=== PATIENT | female | born 1950 | race American Indian/Alaskan Native ===

== ENCOUNTER 2018-04-26 17:29 | Inpatient (IN) | payer MEDICARE, OTHER ==
[2018-04-26 17:44] VITALS: BMI 37.8
[2018-04-26] MEDS ORDERED: TDAP Vaccine 0.5 mL Syr IM ONE (18:06)
--- NOTE | 2018-04-26 18:14 | ED PDOC ---
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 Patient states that she wears a brace in the right leg in order to walk. However she states that recently she has been having difficulty using the brace to walk. She reports fever, chills. Otherwise: (-) trauma, (-) chest pain, (-) dyspnea, (-) hemoptysis, (-) prior thromboembolic disease, (-) prolonged immobility or travel, (-) CHF, (-) known malignancy. PMD David Cardio not on staff [facility] [place] Past Medical History - Infectious Disease Hx of Infectious Diseases: None - Cardiac Hx Cardiac Disorders: Yes Hx Hypertension: Yes - Pulmonary Hx Respiratory Disorders: No - Neurological Hx Neurological Disorder: Yes HX Cerebrovascular Accident: Yes (x3, right sided weakness) - HEENT Hx HEENT Disorder: No - Renal Hx Renal Disorder: No - Endocrine/Metabolic Hx Endocrine Disorders: Yes Hx Diabetes Mellitus Type 2: Yes (+ insulin) - Hematological/Oncological Hx Blood Disorders: No - Integumentary Hx Dermatological Disorder: No - Musculoskeletal/Rheumatological Hx Musculoskeletal Disorders: No - Gastrointestinal Hx Gastrointestinal Disorders: No - Genitourinary/Gynecological Hx Genitourinary Disorders: No - Psychiatric Hx Psychophysiologic Disorder: No Hx Substance Use: No - Surgical History Hx Tubal Ligation: Yes - Anesthesia Hx Anesthesia Reactions: No Hx Malignant Hyperthermia: No Family/Social History Family/Social History: No Known Family HX Smoking Status: Former Smoker Hx Alcohol Use: No Hx Substance Use: No Allergies/Home Meds Allergies/Adverse Reactions: Allergies No Known Allergies Allergy (Verified 04/26/18 17:46) Home Medications: Home Meds Medication Instructions Recorded Confirmed Aspirin/Dipyridamole [Aggrenox 1 cap PO DAILY 04/26/18 04/26/18 25-200 mg] Calcitriol [Rocaltrol] 1 cap PO DAILY 04/26/18 04/26/18 Furosemide [Lasix] 1 tab PO DAILY 04/26/18 04/26/18 Glipizide [Glipizide ER] 1 tab PO BID 04/26/18 04/26/18 MetFORMIN [glucoPHAGE] 1 tab PO BID 04/26/18 04/26/18 Olmesartan Medoxomil [Benicar] 1 tab PO DAILY 04/26/18 04/26/18 Rosuvastatin Calcium [Crestor] 1 tab PO HS 04/26/18 04/26/18 amLODIPine [Norvasc] 1 tab PO DAILY 04/26/18 04/26/18 Review of Systems - Review of Systems Constitutional: absent: Fatigue, Fevers Respiratory: absent: SOB, Cough, Sputum Cardiovascular: absent: Chest Pain, Palpitations Gastrointestinal: absent: Abdominal Pain, Nausea, Vomiting Genitourinary Female: absent: Dysuria, Frequency, Hematuria Musculoskeletal: Other (+ R lower leg pain). absent: Arthralgias, Back Pain, Neck Pain Skin: absent: Rash, Pruritis, Skin Lesions Physical Exam - Systems Exam Head: Present: Atraumatic, Normocephalic Pupils: Present: PERRL Extroacular Muscles: Present: EOMI Conjunctiva: Present: Normal Mouth: Present: Moist Mucous Membranes Neck: Present: Normal Range of Motion Respiratory/Chest: Present: Clear to Auscultation, Good Air Exchange. No: Respiratory Distress, Accessory Muscle Use Cardiovascular: Present: Regular Rate and Rhythm, Normal S1, S2. No: Murmurs Abdomen: No: Tenderness, Distention, Peritoneal Signs Back: Present: Normal Inspection Upper Extremity: Present: Normal Inspection, Other (+R sided weakness, R arm is held in flexion). No: Cyanosis, Edema Lower Extremity: Present: Normal Inspection, NORMAL PULSES, Swelling (+edema, warm to touch to the R lower leg, +2x2 cm circular shallow ulcer to the R lower calf, +1x1 cm circular shallow ulcer to the R calf without erythema, d/c. ), Neurovascularly Intact, Capillary Refill < 2 s. No: Edema, Temperature Abnormalties Neurological: Present: GCS=15, CN II-XII Intact, Speech Normal Skin: Present: Warm, Dry, Normal Color. No: Rashes Psychiatric: Present: Alert, Oriented x 3, Normal Insight, Normal Concentration Medical Decision Making ED Course and Treatment: 04/26/18 18:14 Plan: -- Labs -- IV -- Tylenol PO -- Tdap IM -- EKG -- CXR -- Morphine / Zofran / Toradol -- Reassess and disposition -- US doppler RLE 04/26/18 19:44 EKG: ST at 103 bpm, (-) acute ST changes, as read by PA. CXR : NAD US doppler RLE : No DVT. 04/26/18 20:00 Labs reviewed : wbc 14.2 w/ L shift, bun 26, creat 1.5 (stable from last labs). On reevaluation, patient remains awake alert and oriented 3 in no acute distress, reports no dyspnea or CP. Results d/w the patient, diagnosis of cellulitis likely due to 2 skin ulcers to the posterior R calf d/w the patient. Vancomycin 1 g IV ordered. Patient advised that she will need to be observed overnight in the hospital, which she agrees with. Case d/w medical staffing coordinator and Dr. Garcia, who agree with plan for observation under the hospitalist service. - RAD Interpretation Radiology Orders: 04/26/18 18:01 DUPLEX LOWER EXTRM VEIN RIGHT [US] Stat 04/26/18 18:02 CHEST PORTABLE [RAD] Stat - Medication Orders Current Medication Orders: Discontinued Medications Acetaminophen (Tylenol 325mg Tab) 975 mg PO STAT STA Stop: 04/26/18 18:07 Tetanus/Reduced Diphtheria/Acell Pertussis (Boostrix Vaccine Inj) 0.5 ml IM .ONCE ONE Stop: 04/26/18 18:07 - PA / SCIENTIST PROPAGATOR / Resident Statement MD/ has reviewed & agrees with the documentation as recorded. Disposition/Present on Arrival - Present on Arrival Any Indicators Present on Arrival: No History of DVT/PE: No History of Uncontrolled Diabetes: No Urinary Catheter: No History of Decub. Ulcer: No History Surgical Site Infection Following: None - Disposition Have Diagnosis and Disposition been Completed?: Yes Diagnosis: Leg edema, right, Cellulitis, Ulcer of right leg Disposition: HOSPITALIZED Disposition Time: 20:00 Patient Plan: Observation Patient Problems: Current Active Problems Problem Status Onset Cellulitis Acute Leg edema, right Acute Ulcer of right leg Acute Condition: STABLE Discharge Instructions (ExitCare): Cellulitis (ED) Referrals: Hu Hernandez MD [Primary Care Provider] - Follow up with primary Forms: [facility] (Malay)
[2018-04-26 19:40] LABS: ALB/GLOB RATIO 1.1 (1.1-1.8); ALBUMIN 4.2 g/dL (3.0-4.8); ALT/SGPT < 6 U/L (7-56); AST/SGOT 20 U/L (14-36); BLOOD UREA NITROGEN 26 mg/dL (7-21); GFR NON-AFRICAN AMERICAN 35
[2018-04-26 19:41] LABS: BASO # 0.02 K/mm3 (0.0-2.0); BASO % 0.1 % (0.0-3.0); EOS % 0.2 % (1.5-5.0); HEMOGLOBIN 11.3 g/dL (12.0-16.0); LYMPH # 2.6 (1.2-3.4); LYMPH % 18.4 % (22.0-35.0); MEAN CELL VOLUME 84.1 fl (80.0-105.0); MEAN CORPUSCULAR HEMOGLOBIN 27.2 pg (25.0-35.0); MEAN CORPUSCULAR HGB CONC 32.4 g/dl (31.0-37.0); MEAN PLATELET VOLUME 10.6 fl (7.0-11.0); MONO # 0.7 (0.1-0.6); MONO % 5.1 % (1.0-6.0); RBC 4.15 10^6/uL (3.5-6.1); RED CELL DISTRIBUTION WIDTH 13.9 % (11.5-14.5); WHITE BLOOD COUNT 14.2 10^3/uL (4.5-11.0)
[2018-04-26 19:43] LABS: PARTIAL THROMBOPLASTIN TIME 24.4 Seconds (26.9-38.3); PROTHROMBIN TIME 11.1 SECONDS (9.4-12.5)
[2018-04-26 19:51] LABS: B-TYPE NATRIURETIC PEPTIDE 389 pg/mL (0-450)
[2018-04-26] MEDS ORDERED: Vancomycin 1gm in NS 250ml 1 GM/250 ML BAG IVPB STA (19:58)
--- NOTE | 2018-04-26 21:12 | CP.PCM.HP ---
History of Present Illness - History of Present Illness History of Present Illness: Resident History & Physical for Hospitalist Service Patient is a 68 year old female with past medical history of HTN, T2DM, CKD, CVA, TIA presenting with chief complaint of lower extremity swelling beginning a few weeks prior. Patient states that in the past few days she had increased severity of swelling in her right lower extremity which prompted her arrival to ED. She admits to pain only when she is ramin her leg. Patient uses a brace for her RLE due to residual weakness from previous CVA, however she has had difficulty ambulating even with the brace. Typically she is able to ambulate up and down stairs without any issue. She denies any trauma or recent travel. Denies fevers, chills, headache, dizziness, nausea, vomiting, chest pain, shortness of breath, abdominal pain, dysuria. PMH: HTN, T2DM, CKD, CVA (1997), TIA (2000, 2002) PSH: tubal ligation, cholecystectomy SHx: denies alcohol or illicit drug use, 1.5 PPD for 20 years (quit in 2010) FHx: mother (HTN), father (T2DM0 Allergies: NKDA PMD: Dr. Rizvi Present on Admission - Present on Admission Any Indicators Present on Admission: No Review of Systems - Review of Systems All systems: reviewed and no additional remarkable complaints except (as stated in HPI) Past Patient History - Infectious Disease Hx of Infectious Diseases: None - Past Social History Smoking Status: Former Smoker - CARDIAC Hx Cardiac Disorders: Yes Hx Hypertension: Yes - PULMONARY Hx Respiratory Disorders: No - NEUROLOGICAL Hx Neurological Disorder: Yes HX Cerebrovascular Accident: Yes (x3, right sided weakness) - HEENT Hx HEENT Problems: No - RENAL Hx Chronic Kidney Disease: No - ENDOCRINE/METABOLIC Hx Endocrine Disorders: Yes Hx Diabetes Mellitus Type 2: Yes (+ insulin) - HEMATOLOGICAL/ONCOLOGICAL Hx Blood Disorders: No - INTEGUMENTARY Hx Dermatological Problems: No - MUSCULOSKELETAL/RHEUMATOLOGICAL Hx Musculoskeletal Disorders: No - GASTROINTESTINAL Hx Gastrointestinal Disorders: No - GENITOURINARY/GYNECOLOGICAL Hx Genitourinary Disorders: No - PSYCHIATRIC Hx Psychophysiologic Disorder: No Hx Substance Use: No - SURGICAL HISTORY Hx Tubal Ligation: Yes - ANESTHESIA Hx Anesthesia Reactions: No Hx Malignant Hyperthermia: No Meds Allergies/Adverse Reactions: Allergies Allergy/AdvReac Type Severity Reaction Status Date / Time No Known Allergies Allergy Verified 02/14/19 17:46 Physical Exam - Constitutional Appears: Non-toxic, No Acute Distress - Head Exam Head Exam: ATRAUMATIC, NORMOCEPHALIC - Eye Exam Eye Exam: EOMI, Normal appearance, PERRL - ENT Exam ENT Exam: Mucous Membranes Moist - Neck Exam Neck exam: Positive for: Full Rom, Normal Inspection - Respiratory Exam Respiratory Exam: Clear to Auscultation Bilateral, NORMAL BREATHING PATTERN. absent: Rales, Rhonchi, Wheezes, Respiratory Distress - Cardiovascular Exam Cardiovascular Exam: REGULAR RHYTHM, +S1, +S2. absent: Tachycardia, Systolic Murmur - GI/Abdominal Exam GI & Abdominal Exam: Soft. absent: Distended, Firm, Guarding, Rebound, Rigid, Tenderness - Extremities Exam Extremities exam: Positive for: normal capillary refill, pedal edema Additional comments: bilateral lower extremity swelling and pitting edema R>L RLE warm, non erythematous, non tender to palpation two healed wounds on right calf - Neurological Exam Neurological exam: Alert, CN II-XII Intact, Oriented x3 Additional comments: RUE and RLE muscle strength +4/5 - Psychiatric Exam Psychiatric exam: Normal Affect, Normal Mood - Skin Skin Exam: Dry, Intact, Warm Results - Vital Signs Recent Vital Signs: Last Vital Signs Temp 98.6 F 04/26/18 18:37 Pulse 98 H 04/26/18 20:00 Resp 18 04/26/18 20:00 BP 158/69 H 04/26/18 20:00 Pulse Ox 96 04/26/18 20:00 - Labs Result Diagrams: 04/26/18 19:14 04/26/18 19:14 Labs: Laboratory Results - last 24 hr 04/26/18 04/26/18 04/26/18 19:14 19:14 19:14 WBC 14.2 H RBC 4.15 Hgb 11.3 L Hct 34.9 L MCV 84.1 MCH 27.2 MCHC 32.4 RDW 13.9 Plt Count 278 MPV 10.6 Neut % (Auto) 76.2 H Lymph % (Auto) 18.4 L [place] % (Auto) 5.1 Eos % (Auto) 0.2 L Baso % (Auto) 0.1 Lymph # (Auto) 2.6 [place] # (Auto) 0.7 H Eos # (Auto) 0.0 Baso # (Auto) 0.02 Absolute Neuts (auto) 10.82 H PT 11.1 INR 1.00 APTT 24.4 L Sodium 137 Potassium 4.6 Chloride 107 Carbon Dioxide 22 Anion Gap 13 BUN 26 H Creatinine 1.5 H Est GFR ( Amer) 42 Est GFR (Non-Af Amer) 35 Random Glucose 147 H Calcium 10.0 Magnesium 1.5 L Total Bilirubin 0.4 AST 20 ALT < 6 L Alkaline Phosphatase 82 NT-Pro-B Natriuret Pep 389 Total Protein 8.2 Albumin 4.2 Globulin 4.0 Albumin/Globulin Ratio 1.1 Assessment & Plan - Assessment and Plan (Free Text) Assessment: Patient is a 68 year old female with past medical history of HTN, T2DM, CKD, CVA presenting with chief complaint of right lower extremity swelling. Plan: RLE swelling - afebrile, positive leukocytosis - x-rays to rule out OM - EMELI, dopplers - followup blood cultures - ID and podiatry consulted. Appreciate recs. - Vancomycin 1 gm IV Q12H - Zosyn 2.25 gm IV Q6H T2DM - Hgba1c - continue home metformin and glipizide HTN - continue home Norvasc, Lasix, Losartan History of CVA - continue home aspirin, Lipitor, Aggrenox PPX - Heparin 5000 units SC Q12 Case discussed with Dr. Jose Zhang PGY-1 - Date & Time Date: 04/26/18 Time: 21:57
[2018-04-27] MEDS: Piperacillin/Tazobact 2.25gm 2.25 GM/100 ML BAG IVPB SCH ×2 (04:24→09:47)
--- NOTE | 2018-04-27 07:20 | CARD ---
APPROVED REPORT Date of service: 04/26/2018 EKG Measurement Heart [id number] <Conclusion> Sinus tachycardia Low voltage QRS Borderline ECG
--- NOTE | 2018-04-27 07:35 | CP.PCM.PN ---
<Joellen Caldwell - Last Filed: 04/27/18 13:52> Subjective - Date & Time of Evaluation Date of Evaluation: 04/27/18 Time of Evaluation: 07:35 - Subjective Subjective: PGY1 Progress Note for Dr. Anthony Patient seen and evaluated at bedside. Patient had no acute overnight events. No new complaints today. ROS unremarkable for headache, fever, chest pain, shortness of breath, increase in weakness, nausea, vomiting, constipation, d iarrhea, dysuria, hematuria. Objective - Vital Signs/Intake and Output Vital Signs (last 24 hours): Temp Pulse Resp BP Pulse Ox 98.6 F 98 H 18 158/69 H 96 04/26/18 18:37 04/26/18 20:00 04/26/18 23:14 04/26/18 20:00 04/26/18 20:00 Intake and Output: 04/27/18 04/27/18 06:59 18:59 Intake Total 120 Balance 120 - Medications Medications: Current Medications Acetaminophen (Tylenol 325mg Tab) 650 mg PO Q6H PRN PRN Reason: Fever >100.4 F Last Admin: 04/27/18 04:25 Dose: 650 mg Acetaminophen (Tylenol 325mg Tab) 650 mg PO Q4H PRN PRN Reason: Pain, moderate (4-7) Amlodipine Besylate (Norvasc) 10 mg PO DAILY [facility] Atorvastatin Calcium (Lipitor) 20 mg PO DIN [facility] Calcitriol (Rocaltrol) 0.5 mcg PO DAILY [facility] Dipyridamole/Aspirin (Aggrenox 25-200 Mg) 1 ea PO DAILY [facility] Furosemide (Lasix) 20 mg PO DAILY [facility] Glipizide (Glucotrol Xl) 10 mg PO BID [facility] Heparin Sodium (Porcine) (Heparin) 5,000 units SC Q12 [facility]; Protocol Vancomycin HCl (Vancomycin 1gm) 1 gm in 250 mls @ 167 mls/hr IVPB Q12H [facility]; Protocol Piperacillin Sod/Tazobactam Sod (Zosyn 2.25 Gm In 0.9% 100 Ml) 2.25 gm in 100 mls @ 100 mls/hr IVPB Q6H [facility]; Protocol Stop: 04/27/18 09:16 Last Admin: 04/27/18 04:24 Dose: 100 mls/hr Losartan Potassium (Cozaar) 100 mg PO DAILY [facility] Metformin HCl (Glucophage) 1,000 mg PO BID [facility] - Labs Labs: 04/26/18 19:14 04/26/18 19:14 PT 11.1 SECONDS (9.4-12.5) 04/26/18 19:14 INR 1.00 04/26/18 19:14 APTT 24.4 Seconds (26.9-38.3) L 04/26/18 19:14 - Additional Findings Additional findings: - Constitutional Appears: Non-toxic, No Acute Distress - Head Exam Head Exam: ATRAUMATIC, NORMOCEPHALIC - Eye Exam Eye Exam: EOMI, Normal appearance, PERRL - Respiratory Exam Respiratory Exam: Clear to Auscultation Bilateral, NORMAL BREATHING PATTERN. absent: Rales, Rhonchi, Wheezes, Respiratory Distress - Cardiovascular Exam Cardiovascular Exam: REGULAR RHYTHM, +S1, +S2. absent: Tachycardia, Systolic Murmur - GI/Abdominal Exam GI & Abdominal Exam: Soft. absent: Distended, Firm, Guarding, Rebound, Rigid, Tenderness - Extremities Exam Extremities exam: Positive for: normal capillary refill, pedal edema Additional comments: bilateral lower extremity swelling and pitting edema R>L RLE warm, non erythematous, non tender to palpation two healed wounds on right calf - Neurological Exam Neurological exam: Alert, CN II-XII Intact, Oriented x3 Additional comments: RUE and RLE muscle strength +4/5 - Skin Skin Exam: Dry, Intact, Warm Assessment and Plan - Assessment and Plan (Free Text) Assessment: Patient is a 68 year old female with past medical history of HTN, T2DM, CKD, CVA presenting with chief complaint of right lower extremity ulcer and edema, rule- out osteomyelitis Plan: Right Lower Extremity Ulcer - Afebrile, positive leukocytosis on admission - ID (Dr. Peña) consulted; recommendations appreciated - Vancomycin 1 gm IV Q12H - Zosyn 2.25 gm IV Q6H - Venous Doppler R LE 04/27: 1. Limited study due to calcified vessels. 2. Significant right distal SFA, popliteal, and/or tibial disease. 3. Further e valuation with an MRA with gadolinium runnoff, CTA runoff, or conventional arteriogram is recommended if clinically indicated. - R Ankle X-ray 04/27: mild focal periosteal thickening noted at the lateral aspect of the distal right fibula without definite evidence or cortical erosion. Adjacent soft tissue swelling and heterogenous density likely represent soft tissue inflammatory or infectious process. - R Tibia/Fibula X-ray 04/27: no definite radiographic evidence of osteomyelitis - R Foot X-ray 04/27: no definite radiographic evidence of osteomyelitis - Podiatry Consulted (Dr. Velazquez); recommendations appreciated; - EMELI ordered to evaluate for PVD - Vascular Surgery (Dr. Mulligan) consulted; recommendations appreciated - Wound cultures obtained - Wound cleansed with saline and dressed with xeroform, DSD R Lower Extremity Edema; Rule-out DVT - Venous Doppler R LE 04/26: No DVT appreciated CKD Stage 3B Moderate - GFR =42 - Monitor daily CMP - Cr stable at 1.5 (baseline) T2DM Complicated by CKD - Hgba1c - continue home metformin and glipizide HTN - continue home Norvasc, Lasix, Losartan History of CVA - continue home aspirin, Lipitor, Aggrenox PPX - Heparin 5000 units SC Q12 Patient seen and case discussed in detail with Dr. Gabrielle Caldwell PGY1 <Bud Anthony - Last Filed: 04/27/18 18:10> Objective - Vital Signs/Intake and Output Vital Signs (last 24 hours): Temp Pulse Resp BP Pulse Ox 99.4 F 91 H 18 136/62 96 04/27/18 14:00 04/27/18 14:00 04/27/18 14:00 04/27/18 14:00 04/27/18 14:00 Intake and Output: 04/27/18 04/27/18 06:59 18:59 Intake Total 120 Balance 120 - Medications Medications: Current Medications Acetaminophen (Tylenol 325mg Tab) 650 mg PO Q6H PRN PRN Reason: Fever >100.4 F Last Admin: 04/27/18 04:25 Dose: 650 mg Acetaminophen (Tylenol 325mg Tab) 650 mg PO Q4H PRN PRN Reason: Pain, moderate (4-7) Amlodipine Besylate (Norvasc) 10 mg PO DAILY [facility] Last Admin: 04/27/18 09:32 Dose: 10 mg Atorvastatin Calcium (Lipitor) 20 mg PO DIN [facility] Last Admin: 04/27/18 17:03 Dose: 20 mg Calcitriol (Rocaltrol) 0.5 mcg PO DAILY [facility] Last Admin: 04/27/18 09:37 Dose: 0.5 mcg Dipyridamole/Aspirin (Aggrenox 25-200 Mg) 1 ea PO DAILY [facility] Last Admin: 04/27/18 09:32 Dose: 1 ea Furosemide (Lasix) 20 mg PO DAILY [facility] Last Admin: 04/27/18 09:33 Dose: 20 mg Glipizide (Glucotrol Xl) 10 mg PO BID [facility] Last Admin: 04/27/18 17:03 Dose: 10 mg Heparin Sodium (Porcine) (Heparin) 5,000 units SC Q12 [facility]; Protocol Last Admin: 04/27/18 09:33 Dose: 5,000 units Vancomycin HCl (Vancomycin 1gm) 1 gm in 250 mls @ 167 mls/hr IVPB Q12H [facility]; Protocol Last Admin: 04/27/18 09:32 Dose: 167 mls/hr Sodium Chloride (Sodium Chloride 0.45%) 1,000 mls @ 75 mls/hr IV .[id number] [facility] Losartan Potassium (Cozaar) 100 mg PO DAILY [facility] Last Admin: 04/27/18 09:32 Dose: 100 mg Metformin HCl (Glucophage) 1,000 mg PO BID [facility] Last Admin: 04/27/18 17:03 Dose: 1,000 mg - Labs Labs: 04/27/18 07:40 04/27/18 07:40 PT 11.1 SECONDS (9.4-12.5) 04/26/18 19:14 INR 1.00 04/26/18 19:14 APTT 24.4 Seconds (26.9-38.3) L 04/26/18 19:14 Attending/Attestation - Attestation I have personally seen and examined this patient.: Yes I have fully participated in the care of the patient.: Yes I have reviewed all pertinent clinical information, including history, physical exam and plan: Yes Notes (Text): 04/27/18 18:02 68 year old female with past medical history of hypertension, diabetes, CKD and CVA presents with RLE ulcer and edema. She is on iv antibiotics. Will follow up on cultures. ID/podiatry evaluations were requested. Xray reviewed showing mild focal periosteal thickening at the lateral aspect of the distal right fibula with adjacent soft tissue swelling. Dopplers showed significant right distal SFA, popliteal and/or tibial disease. IR evaluation was requested. Bud Anthony MD Hospitalist.
[2018-04-27 07:51] LABS: BASO # 0.02 K/mm3 (0.0-2.0); BASO % 0.2 % (0.0-3.0); EOS # 0.1 (0.0-0.7); EOS % 0.8 % (1.5-5.0); HEMOGLOBIN 10.2 g/dL (12.0-16.0); LYMPH # 3.3 (1.2-3.4); LYMPH % 30.7 % (22.0-35.0); MEAN CELL VOLUME 83.7 fl (80.0-105.0); MEAN CORPUSCULAR HEMOGLOBIN 27.3 pg (25.0-35.0); MEAN CORPUSCULAR HGB CONC 32.6 g/dl (31.0-37.0); MEAN PLATELET VOLUME 10.2 fl (7.0-11.0); MONO # 0.8 (0.1-0.6); MONO % 7.7 % (1.0-6.0); RBC 3.74 10^6/uL (3.5-6.1); RED CELL DISTRIBUTION WIDTH 13.9 % (11.5-14.5); WHITE BLOOD COUNT 10.6 10^3/uL (4.5-11.0)
[2018-04-27 08:20] LABS: ALBUMIN 3.6 g/dL (3.0-4.8); AST/SGOT 21 U/L (14-36); BLOOD UREA NITROGEN 24 mg/dL (7-21); CALCIUM 9.7 mg/dL (8.4-10.5); GFR NON-AFRICAN AMERICAN 35
[2018-04-27 08:23] LABS: ALT/SGPT < 6 U/L (7-56)
[2018-04-27] MEDS: Vancomycin 1gm in NS 250ml 1 GM/250 ML BAG IVPB SCH ×2 (09:32→21:31)
[2018-04-27] MEDS: Aspirin-Dipyridamole 200-25 mg ER Cap PO SCH (09:32)
[2018-04-27] MEDS: GlipiZIDE 10 mg SR Tab PO SCH ×2 (09:33→17:03)
--- NOTE | 2018-04-27 10:05 | RAD ---
Date of service: 04/26/2018 HISTORY: RLE edema COMPARISON: No prior. FINDINGS: LUNGS: No active pulmonary disease. PLEURA: No significant pleural effusion identified, no pneumothorax apparent. CARDIOVASCULAR: No aortic atherosclerotic calcification present. Normal cardiac size. No pulmonary vascular congestion. OSSEOUS STRUCTURES: No significant abnormalities. VISUALIZED UPPER ABDOMEN: Normal. OTHER FINDINGS: None. IMPRESSION: No radiographic evidence of acute pulmonary disease. Suboptimal portable study.
--- NOTE | 2018-04-27 10:13 | US ---
PROCEDURE: Right lower extremity venous US HISTORY: Leg pain and swelling. Evaluate for DVT. PHYSICIAN(S): Vlad Mulligan M.D. TECHNIQUE: Duplex sonography and color-flow Doppler with graded compression were used to evaluate the deep venous system of the right lower extremity. The exam is somewhat limited by body habitus and edema FINDINGS: The visualized deep venous system of the right lower extremity is sonographically normal and compressible. Normal waveforms and augmentation are seen. There is no sonographic evidence for deep venous thrombosis in the visualized segments of the right lower extremity. IMPRESSION: 1. No sonographic evidence for deep venous thrombosis in the visualized segments of the right lower extremity.
--- NOTE | 2018-04-27 11:13 | RAD ---
Date of service: 04/27/2018 PROCEDURE: Right Ankle Radiographs. HISTORY: r/o OM COMPARISON: None available. FINDINGS: BONES: There is focal mild periosteal thickening noted at lateral aspect of the distal fibula without evidence of cortical destruction. JOINTS: Arthritic degenerative changes are noted. SOFT TISSUES: Heterogeneous density of the soft tissue at and adjacent to the lateral malleolus may represent soft tissue infection. OTHER FINDINGS: None. IMPRESSION: Mild focal periosteal thickening noted at the lateral aspect of the distal right fibula without definite evidence of cortical erosion. Adjacent soft tissue swelling and heterogeneous density likely represent soft tissue inflammatory or infectious process.
--- NOTE | 2018-04-27 11:15 | RAD ---
Date of service: 04/27/2018 PROCEDURE: Radiographs of the right tibia and fibula. HISTORY: r/o OM COMPARISON: None available TECHNIQUE: Frontal and lateral views obtained. FINDINGS: BONES: No radiographic evidence of significant periosteal thickening or cortical erosion in right tibia and fibula. JOINT SPACES: Unremarkable. OTHER FINDINGS: Diffuse vascular calcification is noted. IMPRESSION: No definite radiographic evidence of osteomyelitis.
--- NOTE | 2018-04-27 11:17 | RAD ---
Date of service: 04/27/2018 PROCEDURE: Right Foot Radiographs. HISTORY: r/o OM COMPARISON: None. FINDINGS: BONES: No definite evidence of focal cortical destruction or significant periosteal thickening noted. JOINTS: Normal. SOFT TISSUES: Vascular calcification is noted. OTHER FINDINGS: None. IMPRESSION: No definite radiographic evidence of osteomyelitis.
--- NOTE | 2018-04-27 12:14 | CP.PCM.CON ---
<Zay Cortez - Last Filed: 04/27/18 12:11> History of Present Illness - History of Present Illness History of Present Illness: Podiatry consult note for Dr. Velazquez, \68 year old female with PMHx of HTN, T2DM, CKD, CVA, TIA seen and evaluated at bedside with Dr. Velazquez for lower extremity swelling beginning and right leg wounds, which patient states developed over the last few weeks. She admits to pain on pressure and with range of motion. Patient uses a brace for her RLE due to residual weakness from previous CVA, and states the wound could be a result of the brace. Typically she is able to ambulate up and down stairs without any issue. She denies any trauma or recent travel. Denies fevers, chills, headache, dizziness, nausea, vomiting, chest pain, shortness of breath, abdominal pain, dysuria. Review of Systems - Review of Systems All systems: reviewed and no additional remarkable complaints except Review of Systems: As per HPI Past Patient History - Infectious Disease Hx of Infectious Diseases: None - Past Social History Smoking Status: Former Smoker - CARDIAC Hx Cardiac Disorders: Yes Hx Hypertension: Yes - PULMONARY Hx Respiratory Disorders: No - NEUROLOGICAL Hx Neurological Disorder: Yes HX Cerebrovascular Accident: Yes (x3, right sided weakness) - HEENT Hx HEENT Problems: No - RENAL Hx Chronic Kidney Disease: No - ENDOCRINE/METABOLIC Hx Endocrine Disorders: Yes Hx Diabetes Mellitus Type 2: Yes (+ insulin) - HEMATOLOGICAL/ONCOLOGICAL Hx Blood Disorders: No - INTEGUMENTARY Hx Dermatological Problems: No - MUSCULOSKELETAL/RHEUMATOLOGICAL Hx Musculoskeletal Disorders: No - GASTROINTESTINAL Hx Gastrointestinal Disorders: No - GENITOURINARY/GYNECOLOGICAL Hx Genitourinary Disorders: No - PSYCHIATRIC Hx Psychophysiologic Disorder: No Hx Substance Use: No - SURGICAL HISTORY Hx Tubal Ligation: Yes - ANESTHESIA Hx Anesthesia Reactions: No Hx Malignant Hyperthermia: No Meds Allergies/Adverse Reactions: Allergies Allergy/AdvReac Type Severity Reaction Status Date / Time No Known Allergies Allergy Verified 04/26/18 17:46 - Medications Medications: Current Medications Acetaminophen (Tylenol 325mg Tab) 650 mg PO Q6H PRN PRN Reason: Fever >100.4 F Last Admin: 04/27/18 04:25 Dose: 650 mg Acetaminophen (Tylenol 325mg Tab) 650 mg PO Q4H PRN PRN Reason: Pain, moderate (4-7) Amlodipine Besylate (Norvasc) 10 mg PO DAILY [facility] Last Admin: 04/27/18 09:32 Dose: 10 mg Atorvastatin Calcium (Lipitor) 20 mg PO DIN [facility] Calcitriol (Rocaltrol) 0.5 mcg PO DAILY [facility] Last Admin: 04/27/18 09:37 Dose: 0.5 mcg Dipyridamole/Aspirin (Aggrenox 25-200 Mg) 1 ea PO DAILY [facility] Last Admin: 04/27/18 09:32 Dose: 1 ea Furosemide (Lasix) 20 mg PO DAILY [facility] Last Admin: 04/27/18 09:33 Dose: 20 mg Glipizide (Glucotrol Xl) 10 mg PO BID [facility] Last Admin: 04/27/18 09:33 Dose: 10 mg Heparin Sodium (Porcine) (Heparin) 5,000 units SC Q12 [facility]; Protocol Last Admin: 04/27/18 09:33 Dose: 5,000 units Vancomycin HCl (Vancomycin 1gm) 1 gm in 250 mls @ 167 mls/hr IVPB Q12H [facility]; Protocol Last Admin: 04/27/18 09:32 Dose: 167 mls/hr Losartan Potassium (Cozaar) 100 mg PO DAILY [facility] Last Admin: 04/27/18 09:32 Dose: 100 mg Metformin HCl (Glucophage) 1,000 mg PO BID [facility] Last Admin: 04/27/18 09:33 Dose: 1,000 mg Physical Exam - Constitutional Appears: Well, Non-toxic, No Acute Distress - Head Exam Head Exam: ATRAUMATIC, NORMOCEPHALIC - Extremities Exam Additional comments: Bilateral Lower Extremity Exam VASC: DP and PT non-palpable to the right, and faintly palpable to the left, CFT delayed to 5 seconds, TG warm to cool R > L, pitting edema noted to bilateral lower extremity R > L NEURO: grossly intact DERM: two wounds noted to the posterior aspect of the right leg, no drainage, wounds scabbed over, no malodor, no probe to bone, no signs of infection, no fluctuance noted ORTHO: pain on palpation the posterior right leg wounds, decreased muscle st rength on the right 4/5 due to previosu CVA, MSK 5/5 on the left - Neurological Exam Neurological exam: Alert, Oriented x3 - Psychiatric Exam Psychiatric exam: Normal Affect, Normal Mood Results - Vital Signs Recent Vital Signs: Last Vital Signs Temp 98.2 F 04/27/18 06:00 Pulse 98 H 04/27/18 06:00 Resp 18 04/27/18 06:00 BP 159/73 H 04/27/18 09:33 Pulse Ox 98 04/27/18 06:00 - Labs Result Diagrams: 04/27/18 07:40 04/27/18 07:40 Labs: Laboratory Results - last 24 hr 04/26/18 04/26/18 04/26/18 19:14 19:14 19:14 WBC 14.2 H RBC 4.15 Hgb 11.3 L Hct 34.9 L MCV 84.1 MCH 27.2 MCHC 32.4 RDW 13.9 Plt Count 278 MPV 10.6 Neut % (Auto) 76.2 H Lymph % (Auto) 18.4 L [place] % (Auto) 5.1 Eos % (Auto) 0.2 L Baso % (Auto) 0.1 Lymph # (Auto) 2.6 [place] # (Auto) 0.7 H Eos # (Auto) 0.0 Baso # (Auto) 0.02 Absolute Neuts (auto) 10.82 H PT 11.1 INR 1.00 APTT 24.4 L Sodium 137 Potassium 4.6 Chloride 107 Carbon Dioxide 22 Anion Gap 13 BUN 26 H Creatinine 1.5 H Est GFR ( Amer) 42 Est GFR (Non-Af Amer) 35 POC Glucose (mg/dL) Random Glucose 147 H Calcium 10.0 Phosphorus Magnesium 1.5 L Total Bilirubin 0.4 AST 20 ALT < 6 L Alkaline Phosphatase 82 NT-Pro-B Natriuret Pep 389 Total Protein 8.2 Albumin 4.2 Globulin 4.0 Albumin/Globulin Ratio 1.1 04/27/18 04/27/18 04/27/18 00:17 06:35 07:40 WBC 10.6 D RBC 3.74 Hgb 10.2 L Hct 31.3 L MCV 83.7 MCH 27.3 MCHC 32.6 RDW 13.9 Plt Count 234 MPV 10.2 Neut % (Auto) 60.6 Lymph % (Auto) 30.7 [place] % (Auto) 7.7 H Eos % (Auto) 0.8 L Baso % (Auto) 0.2 Lymph # (Auto) 3.3 [place] # (Auto) 0.8 H Eos # (Auto) 0.1 Baso # (Auto) 0.02 Absolute Neuts (auto) 6.42 PT INR APTT Sodium Potassium Chloride Carbon Dioxide Anion Gap BUN Creatinine Est GFR ( Amer) Est GFR (Non-Af Amer) POC Glucose (mg/dL) 104 89 Random Glucose Calcium Phosphorus Magnesium Total Bilirubin AST ALT Alkaline Phosphatase NT-Pro-B Natriuret Pep Total Protein Albumin Globulin Albumin/Globulin Ratio 04/27/18 04/27/18 07:40 10:55 WBC RBC Hgb Hct MCV MCH MCHC RDW Plt Count MPV Neut % (Auto) Lymph % (Auto) [place] % (Auto) Eos % (Auto) Baso % (Auto) Lymph # (Auto) [place] # (Auto) Eos # (Auto) Baso # (Auto) Absolute Neuts (auto) PT INR APTT Sodium 140 Potassium 3.9 Chloride 111 H Carbon Dioxide 22 Anion Gap 10 BUN 24 H Creatinine 1.5 H Est GFR ( Amer) 42 Est GFR (Non-Af Amer) 35 POC Glucose (mg/dL) 198 H Random Glucose 93 Calcium 9.7 Phosphorus 3.7 Magnesium 1.5 L Total Bilirubin 0.4 AST 21 ALT < 6 L Alkaline Phosphatase 67 NT-Pro-B Natriuret Pep Total Protein 7.1 Albumin 3.6 Globulin 3.5 Albumin/Globulin Ratio 1.0 L Assessment & Plan - Assessment and Plan (Free Text) Assessment: 68 y/o female seen and evaluated at bedside for right lower leg wounds, and bilateral LE edema Plan: Patient was seen and evaluated with Dr. Velazquez Chart, labs and vitals were reviewed- afebrile, WBC 14.2 on admission trended down to 10.6 today Plan discussed with attending Tib-Fib X-ray: no radiographic evidence of ostemyelitis Ordered EMELI to evaluate for PVD Placed Vascular consult for Dr. Mulligan, recommendations appreciated Wound Culture obtained Wound cleansed with saline and dressed with xeroform, DSD Podiatry will continue to follow up with patient while in house - Date & Time Date: 04/27/18 Time: 12:22 <David Velazquez - Last Filed: 04/27/18 17:46> Meds - Medications Medications: Current Medications Acetaminophen (Tylenol 325mg Tab) 650 mg PO Q6H PRN PRN Reason: Fever >100.4 F Last Admin: 04/27/18 04:25 Dose: 650 mg Acetaminophen (Tylenol 325mg Tab) 650 mg PO Q4H PRN PRN Reason: Pain, moderate (4-7) Amlodipine Besylate (Norvasc) 10 mg PO DAILY [facility] Last Admin: 04/27/18 09:32 Dose: 10 mg Atorvastatin Calcium (Lipitor) 20 mg PO DIN [facility] Last Admin: 04/27/18 17:03 Dose: 20 mg Calcitriol (Rocaltrol) 0.5 mcg PO DAILY [facility] Last Admin: 04/27/18 09:37 Dose: 0.5 mcg Dipyridamole/Aspirin (Aggrenox 25-200 Mg) 1 ea PO DAILY [facility] Last Admin: 04/27/18 09:32 Dose: 1 ea Furosemide (Lasix) 20 mg PO DAILY [facility] Last Admin: 04/27/18 09:33 Dose: 20 mg Glipizide (Glucotrol Xl) 10 mg PO BID [facility] Last Admin: 04/27/18 17:03 Dose: 10 mg Heparin Sodium (Porcine) (Heparin) 5,000 units SC Q12 [facility]; Protocol Last Admin: 04/27/18 09:33 Dose: 5,000 units Vancomycin HCl (Vancomycin 1gm) 1 gm in 250 mls @ 167 mls/hr IVPB Q12H [facility]; Protocol Last Admin: 04/27/18 09:32 Dose: 167 mls/hr Sodium Chloride (Sodium Chloride 0.45%) 1,000 mls @ 75 mls/hr IV .[id number] [facility] Losartan Potassium (Cozaar) 100 mg PO DAILY [facility] Last Admin: 04/27/18 09:32 Dose: 100 mg Metformin HCl (Glucophage) 1,000 mg PO BID [facility] Last Admin: 04/27/18 17:03 Dose: 1,000 mg Results - Vital Signs Recent Vital Signs: Last Vital Signs Temp 99.4 F 04/27/18 14:00 Pulse 91 H 04/27/18 14:00 Resp 18 04/27/18 14:00 BP 136/62 04/27/18 14:00 Pulse Ox 96 04/27/18 14:00 - Labs Result Diagrams: 04/27/18 07:40 04/27/18 07:40 Labs: Laboratory Results - last 24 hr 04/26/18 04/26/18 04/26/18 19:14 19:14 19:14 WBC 14.2 H RBC 4.15 Hgb 11.3 L Hct 34.9 L MCV 84.1 MCH 27.2 MCHC 32.4 RDW 13.9 Plt Count 278 MPV 10.6 Neut % (Auto) 76.2 H Lymph % (Auto) 18.4 L [place] % (Auto) 5.1 Eos % (Auto) 0.2 L Baso % (Auto) 0.1 Lymph # (Auto) 2.6 [place] # (Auto) 0.7 H Eos # (Auto) 0.0 Baso # (Auto) 0.02 Absolute Neuts (auto) 10.82 H PT 11.1 INR 1.00 APTT 24.4 L Sodium 137 Potassium 4.6 Chloride 107 Carbon Dioxide 22 Anion Gap 13 BUN 26 H Creatinine 1.5 H Est GFR ( Amer) 42 Est GFR (Non-Af Amer) 35 POC Glucose (mg/dL) Random Glucose 147 H Hemoglobin A1c Calcium 10.0 Phosphorus Magnesium 1.5 L Total Bilirubin 0.4 AST 20 ALT < 6 L Alkaline Phosphatase 82 NT-Pro-B Natriuret Pep 389 Total Protein 8.2 Albumin 4.2 Globulin 4.0 Albumin/Globulin Ratio 1.1 04/27/18 04/27/18 04/27/18 00:17 06:35 07:40 WBC 10.6 D RBC 3.74 Hgb 10.2 L Hct 31.3 L MCV 83.7 MCH 27.3 MCHC 32.6 RDW 13.9 Plt Count 234 MPV 10.2 Neut % (Auto) 60.6 Lymph % (Auto) 30.7 [place] % (Auto) 7.7 H Eos % (Auto) 0.8 L Baso % (Auto) 0.2 Lymph # (Auto) 3.3 [place] # (Auto) 0.8 H Eos # (Auto) 0.1 Baso # (Auto) 0.02 Absolute Neuts (auto) 6.42 PT INR APTT Sodium Potassium Chloride Carbon Dioxide Anion Gap BUN Creatinine Est GFR ( Amer) Est GFR (Non-Af Amer) POC Glucose (mg/dL) 104 89 Random Glucose Hemoglobin A1c Calcium Phosphorus Magnesium Total Bilirubin AST ALT Alkaline Phosphatase NT-Pro-B Natriuret Pep Total Protein Albumin Globulin Albumin/Globulin Ratio 04/27/18 04/27/18 04/27/18 07:40 07:40 10:55 WBC RBC Hgb Hct MCV MCH MCHC RDW Plt Count MPV Neut % (Auto) Lymph % (Auto) [place] % (Auto) Eos % (Auto) Baso % (Auto) Lymph # (Auto) [place] # (Auto) Eos # (Auto) Baso # (Auto) Absolute Neuts (auto) PT INR APTT Sodium 140 Potassium 3.9 Chloride 111 H Carbon Dioxide 22 Anion Gap 10 BUN 24 H Creatinine 1.5 H Est GFR ( Amer) 42 Est GFR (Non-Af Amer) 35 POC Glucose (mg/dL) 198 H Random Glucose 93 Hemoglobin A1c 11.5 H Calcium 9.7 Phosphorus 3.7 Magnesium 1.5 L Total Bilirubin 0.4 AST 21 ALT < 6 L Alkaline Phosphatase 67 NT-Pro-B Natriuret Pep Total Protein 7.1 Albumin 3.6 Globulin 3.5 Albumin/Globulin Ratio 1.0 L 04/27/18 16:16 WBC RBC Hgb Hct MCV MCH MCHC RDW Plt Count MPV Neut % (Auto) Lymph % (Auto) [place] % (Auto) Eos % (Auto) Baso % (Auto) Lymph # (Auto) [place] # (Auto) Eos # (Auto) Baso # (Auto) Absolute Neuts (auto) PT INR APTT Sodium Potassium Chloride Carbon Dioxide Anion Gap BUN Creatinine Est GFR ( Amer) Est GFR (Non-Af Amer) POC Glucose (mg/dL) 235 H Random Glucose Hemoglobin A1c Calcium Phosphorus Magnesium Total Bilirubin AST ALT Alkaline Phosphatase NT-Pro-B Natriuret Pep Total Protein Albumin Globulin Albumin/Globulin Ratio Attending/Attestation - Attestation I have personally seen and examined this patient.: Yes I have fully participated in the care of the patient.: Yes I have reviewed all pertinent clinical information: Yes
--- NOTE | 2018-04-27 12:59 | US ---
PROCEDURE: Lower extremity EMELI exam HISTORY: Peripheral vascular disease with pain and right ulceration. Diabetes. Previous smoker. PHYSICIAN(S): Vlad Mulligan MD. FINDINGS: The exam is limited by calcified vessels. The right resting EMELI is inaccurate The high thigh pressures are noncompressible. The high thigh PVR waveforms are normal and symmetric The PVR waveforms are normal at all levels on the left. There is a 65 mm difference between the low thigh pressures and a a 31 mm gradient between the low calf pressures-lower on the right. In addition, the right calf, right ankle, right metatarsal waveforms are moderately to severely blunted. The findings are consistent with distal right SFA, popliteal, and/or tibial disease IMPRESSION: 1. Limited study due to calcified vessels. 2. Significant right distal SFA, popliteal, and/or tibial disease. 3. Further evaluation with an MRA with gadolinium runoff, CTA runoff, or conventional arteriogram is recommended if clinically indicated
--- NOTE | 2018-04-27 21:21 | CP.PCM.CON ---
History of Present Illness - History of Present Illness History of Present Illness: Infectious Disease Consultation: April 27, 2018 68 yo female with presentation of lower extremity swelling in the right initially that started several weeks ago. The patient is having difficulties with ambulation especially in the right leg. Her PMHx includes HTN, T2DM, CKD, CVA, TIA. Two ulcerations on the posterior right leg. PMHx: HTN, T2DM, CKD, CVA, TIA PSHx: tubal ligation cholecystectomy Allergies: NKDA Social Hx: No EtOH or illicit drug use 1.5 ppd for 20 years of tobacco stopped in 2010 Active Medications Acetaminophen (Tylenol 325mg Tab) 650 mg PO Q6H PRN PRN Reason: Fever >100.4 F Last Admin: 04/27/18 04:25 Dose: 650 mg Acetaminophen (Tylenol 325mg Tab) 650 mg PO Q4H PRN PRN Reason: Pain, moderate (4-7) Amlodipine Besylate (Norvasc) 10 mg PO DAILY [facility] Last Admin: 04/27/18 09:32 Dose: 10 mg Atorvastatin Calcium (Lipitor) 20 mg PO DIN [facility] Last Admin: 04/27/18 17:03 Dose: 20 mg Calcitriol (Rocaltrol) 0.5 mcg PO DAILY [facility] Last Admin: 04/27/18 09:37 Dose: 0.5 mcg Dipyridamole/Aspirin (Aggrenox 25-200 Mg) 1 ea PO DAILY [facility] Last Admin: 04/27/18 09:32 Dose: 1 ea Furosemide (Lasix) 20 mg PO DAILY [facility] Last Admin: 04/27/18 09:33 Dose: 20 mg Glipizide (Glucotrol Xl) 10 mg PO BID [facility] Last Admin: 04/27/18 17:03 Dose: 10 mg Heparin Sodium (Porcine) (Heparin) 5,000 units SC Q12 [facility]; Protocol Last Admin: 04/27/18 09:33 Dose: 5,000 units Vancomycin HCl (Vancomycin 1gm) 1 gm in 250 mls @ 167 mls/hr IVPB Q12H [facility]; Protocol Last Admin: 04/27/18 09:32 Dose: 167 mls/hr Sodium Chloride (Sodium Chloride 0.45%) 1,000 mls @ 75 mls/hr IV .[id number] [facility] Losartan Potassium (Cozaar) 100 mg PO DAILY [facility] Last Admin: 04/27/18 09:32 Dose: 100 mg Metformin HCl (Glucophage) 1,000 mg PO BID [facility] Last Admin: 04/27/18 17:03 Dose: 1,000 mg Family Hx: HTN - mother DM - father ROS: No fevers, chills, nausea, vomiting, diarrhea, headaches, dizziness, chest pain, abdominal pain, melena, hematuria, hematemesis, hematochezia, depression, anxiety. Past Patient History - Infectious Disease Hx of Infectious Diseases: None - Past Social History Smoking Status: Former Smoker - CARDIAC Hx Cardiac Disorders: Yes Hx Hypertension: Yes - PULMONARY Hx Respiratory Disorders: No - NEUROLOGICAL Hx Neurological Disorder: Yes HX Cerebrovascular Accident: Yes (x3, right sided weakness) - HEENT Hx HEENT Problems: No - RENAL Hx Chronic Kidney Disease: No - ENDOCRINE/METABOLIC Hx Endocrine Disorders: Yes Hx Diabetes Mellitus Type 2: Yes (+ insulin) - HEMATOLOGICAL/ONCOLOGICAL Hx Blood Disorders: No - INTEGUMENTARY Hx Dermatological Problems: No - MUSCULOSKELETAL/RHEUMATOLOGICAL Hx Musculoskeletal Disorders: No - GASTROINTESTINAL Hx Gastrointestinal Disorders: No - GENITOURINARY/GYNECOLOGICAL Hx Genitourinary Disorders: No - PSYCHIATRIC Hx Psychophysiologic Disorder: No Hx Substance Use: No - SURGICAL HISTORY Hx Tubal Ligation: Yes - ANESTHESIA Hx Anesthesia Reactions: No Hx Malignant Hyperthermia: No Meds Allergies/Adverse Reactions: Allergies Allergy/AdvReac Type Severity Reaction Status Date / Time No Known Allergies Allergy Verified 04/26/18 17:46 - Medications Medications: Current Medications Acetaminophen (Tylenol 325mg Tab) 650 mg PO Q6H PRN PRN Reason: Fever >100.4 F Last Admin: 04/27/18 04:25 Dose: 650 mg Acetaminophen (Tylenol 325mg Tab) 650 mg PO Q4H PRN PRN Reason: Pain, moderate (4-7) Amlodipine Besylate (Norvasc) 10 mg PO DAILY [facility] Last Admin: 04/27/18 09:32 Dose: 10 mg Atorvastatin Calcium (Lipitor) 20 mg PO DIN [facility] Last Admin: 04/27/18 17:03 Dose: 20 mg Calcitriol (Rocaltrol) 0.5 mcg PO DAILY [facility] Last Admin: 04/27/18 09:37 Dose: 0.5 mcg Dipyridamole/Aspirin (Aggrenox 25-200 Mg) 1 ea PO DAILY [facility] Last Admin: 02/15/19 09:32 Dose: 1 ea Furosemide (Lasix) 20 mg PO DAILY [facility] Last Admin: 04/27/18 09:33 Dose: 20 mg Glipizide (Glucotrol Xl) 10 mg PO BID [facility] Last Admin: 04/27/18 17:03 Dose: 10 mg Heparin Sodium (Porcine) (Heparin) 5,000 units SC Q12 [facility]; Protocol Last Admin: 04/27/18 09:33 Dose: 5,000 units Vancomycin HCl (Vancomycin 1gm) 1 gm in 250 mls @ 167 mls/hr IVPB Q12H [facility]; Protocol Last Admin: 04/27/18 09:32 Dose: 167 mls/hr Sodium Chloride (Sodium Chloride 0.45%) 1,000 mls @ 75 mls/hr IV .[id number] [facility] Losartan Potassium (Cozaar) 100 mg PO DAILY [facility] Last Admin: 04/27/18 09:32 Dose: 100 mg Metformin HCl (Glucophage) 1,000 mg PO BID [facility] Last Admin: 04/27/18 17:03 Dose: 1,000 mg Physical Exam - Constitutional Appears: Non-toxic, No Acute Distress - Head Exam Head Exam: ATRAUMATIC, NORMOCEPHALIC - Eye Exam Eye Exam: EOMI, PERRL Pupil Exam: NORMAL ACCOMODATION, PERRL - ENT Exam ENT Exam: Mucous Membranes Moist, Normal External Ear Exam, TM's Normal Bilaterally - Neck Exam Neck exam: Positive for: Full Rom, Normal Inspection - Respiratory Exam Respiratory Exam: Clear to Auscultation Bilateral, NORMAL BREATHING PATTERN. absent: Rales, Rhonchi, Wheezes - Cardiovascular Exam Cardiovascular Exam: REGULAR RHYTHM, RRR, +S1, +S2 - GI/Abdominal Exam GI & Abdominal Exam: Normal Bowel Sounds, Soft. absent: Distended, Tenderness - Extremities Exam Extremities exam: Positive for: pedal edema Additional comments: bilateral lower extremity swelling and pitting edema R>L RLE warm, non erythematous, non tender to palpation two ulcerations on right calf that appear to be healed - Neurological Exam Neurological exam: Alert, CN II-XII Intact, Oriented x3 - Psychiatric Exam Psychiatric exam: Normal Affect, Normal Mood - Skin Skin Exam: Intact, Normal Color Results - Vital Signs Recent Vital Signs: Last Vital Signs Temp 99.4 F 04/27/18 14:00 Pulse 91 H 04/27/18 14:00 Resp 18 04/27/18 14:00 BP 136/62 04/27/18 14:00 Pulse Ox 96 04/27/18 14:00 - Labs Result Diagrams: 04/27/18 07:40 04/27/18 07:40 Labs: Laboratory Results - last 24 hr 04/27/18 04/27/18 04/27/18 00:17 06:35 07:40 WBC 10.6 D RBC 3.74 Hgb 10.2 L Hct 31.3 L MCV 83.7 MCH 27.3 MCHC 32.6 RDW 13.9 Plt Count 234 MPV 10.2 Neut % (Auto) 60.6 Lymph % (Auto) 30.7 [place] % (Auto) 7.7 H Eos % (Auto) 0.8 L Baso % (Auto) 0.2 Lymph # (Auto) 3.3 [place] # (Auto) 0.8 H Eos # (Auto) 0.1 Baso # (Auto) 0.02 Absolute Neuts (auto) 6.42 Sodium Potassium Chloride Carbon Dioxide Anion Gap BUN Creatinine Est GFR ( Amer) Est GFR (Non-Af Amer) POC Glucose (mg/dL) 104 89 Random Glucose Hemoglobin A1c Calcium Phosphorus Magnesium Total Bilirubin AST ALT Alkaline Phosphatase Total Protein Albumin Globulin Albumin/Globulin Ratio 04/27/18 04/27/18 04/27/18 07:40 07:40 10:55 WBC RBC Hgb Hct MCV MCH MCHC RDW Plt Count MPV Neut % (Auto) Lymph % (Auto) [place] % (Auto) Eos % (Auto) Baso % (Auto) Lymph # (Auto) [place] # (Auto) Eos # (Auto) Baso # (Auto) Absolute Neuts (auto) Sodium 140 Potassium 3.9 Chloride 111 H Carbon Dioxide 22 Anion Gap 10 BUN 24 H Creatinine 1.5 H Est GFR ( Amer) 42 Est GFR (Non-Af Amer) 35 POC Glucose (mg/dL) 198 H Random Glucose 93 Hemoglobin A1c 11.5 H Calcium 9.7 Phosphorus 3.7 Magnesium 1.5 L Total Bilirubin 0.4 AST 21 ALT < 6 L Alkaline Phosphatase 67 Total Protein 7.1 Albumin 3.6 Globulin 3.5 Albumin/Globulin Ratio 1.0 L 04/27/18 16:16 WBC RBC Hgb Hct MCV MCH MCHC RDW Plt Count MPV Neut % (Auto) Lymph % (Auto) [place] % (Auto) Eos % (Auto) Baso % (Auto) Lymph # (Auto) [place] # (Auto) Eos # (Auto) Baso # (Auto) Absolute Neuts (auto) Sodium Potassium Chloride Carbon Dioxide Anion Gap BUN Creatinine Est GFR ( Amer) Est GFR (Non-Af Amer) POC Glucose (mg/dL) 235 H Random Glucose Hemoglobin A1c Calcium Phosphorus Magnesium Total Bilirubin AST ALT Alkaline Phosphatase Total Protein Albumin Globulin Albumin/Globulin Ratio Assessment & Plan - Assessment and Plan (Free Text) Assessment: 68 yo female with right lower extremity swelling with ulcerations to the p osterior of the leg. The ulcerations appear to be healed at this time. Started on Vancomycin and Zosyn for antibiotic coverage. The patient has multiple medical issues that include HTN and DM Type 2. Local wound care. Duplex studies. Check ESR. For now, continue with Zosyn and Vancomycin IV. Ulceration sites do not appear infected. Wound care as per Podiatry. Supportive care. Thank you for allowing me to participate in the care of the patient, we will follow with you.
--- NOTE | 2018-04-27 23:10 | CON ---
DATE OF CONSULTATION: 04/27/2018 CHIEF COMPLAINT/HISTORY OF PRESENT ILLNESS: The patient is a 68-year-old female who was admitted with small ischemic eschars in the posterior aspect of the right calf. The patient states that she has been having pain for a few weeks and did not notice the dry ulcerations on the posterior calf. PAST MEDICAL HISTORY: Significant for hypertension, diabetes and multiple CVA/TIA in the past. SOCIAL HISTORY: She is an ex-smoker who quit in 2010. PHYSICAL EXAMINATION: She has 2 dry ischemic eschars on the posterior and lateral aspect of the right calf. This corresponds to the location of her pain. Her femoral pulses are difficult to feel due to body habitus. Her right popliteal pulse is absent. Her left popliteal pulse is palpable. Her pedal pulses are absent. The patient had an EMELI exam on admission, which is limited by calcification and body habitus. However, there is significant right SFA, popliteal, and tibial occlusive disease. The waveforms on the left are relatively normal. ASSESSMENT AND PLAN: I had a discussion with the patient and her family. I will order an MRA runoff to evaluate her right lower extremity occlusive disease. She will likely need an arteriogram in the near future. Her baseline creatinine is 1.5. I have started IV fluids. Further management will depend on the results of the MRA and arteriogram. I discussed the situation with Dr. Velazquez Vlad Mulligan MD [id number]
[2018-04-27] MEDS ORDERED: Dextrose 50% SYRINGE Inj (50 ml) IV PRN (23:45)
[2018-04-27] MEDS: Piperacillin/Tazobact 3.375 gm 100 ML IVPB SCH (23:46)
--- NOTE | 2018-04-28 07:21 | CP.PCM.PN ---
<Norah Redman - Last Filed: 04/28/18 09:42> Subjective - Date & Time of Evaluation Date of Evaluation: 04/28/18 Time of Evaluation: 07:21 - Subjective Subjective: Podiatry progress note: Dr. Velazquez 68F patient seen and evaluated this AM with Dr. Velazquez for R leg superficial wound Patient resting comfortably and in NAD. No acute events overnight. Reports mild discomfort to area. Denies nausea/vomiting/fever/shortness of breath/chest pain. Objective - Vital Signs/Intake and Output Vital Signs (last 24 hours): Temp Pulse Resp BP Pulse Ox 99.1 F 99 H 20 140/65 97 04/27/18 21:25 04/27/18 21:25 04/27/18 21:25 04/27/18 21:25 04/27/18 21:25 Intake and Output: 04/28/18 04/28/18 06:59 18:59 Intake Total 540 Balance 540 - Medications Medications: Current Medications Acetaminophen (Tylenol 325mg Tab) 650 mg PO Q6H PRN PRN Reason: Fever >100.4 F Last Admin: 04/27/18 04:25 Dose: 650 mg Acetaminophen (Tylenol 325mg Tab) 650 mg PO Q4H PRN PRN Reason: Pain, moderate (4-7) Amlodipine Besylate (Norvasc) 10 mg PO DAILY [facility] Last Admin: 04/27/18 09:32 Dose: 10 mg Atorvastatin Calcium (Lipitor) 20 mg PO DIN [facility] Last Admin: 04/27/18 17:03 Dose: 20 mg Calcitriol (Rocaltrol) 0.5 mcg PO DAILY [facility] Last Admin: 04/27/18 09:37 Dose: 0.5 mcg Dextrose (Dextrose 50% Inj) 0 ml IV STAT PRN; Protocol PRN Reason: Hypoglycemia Protocol Dipyridamole/Aspirin (Aggrenox 25-200 Mg) 1 ea PO DAILY [facility] Last Admin: 04/27/18 09:32 Dose: 1 ea Furosemide (Lasix) 20 mg PO DAILY [facility] Last Admin: 04/27/18 09:33 Dose: 20 mg Glipizide (Glucotrol Xl) 10 mg PO BID [facility] Last Admin: 04/27/18 17:03 Dose: 10 mg Heparin Sodium (Porcine) (Heparin) 5,000 units SC Q12 [facility]; Protocol Last Admin: 04/27/18 21:31 Dose: 5,000 units Vancomycin HCl (Vancomycin 1gm) 1 gm in 250 mls @ 167 mls/hr IVPB Q12H [facility]; Protocol Last Admin: 04/27/18 21:31 Dose: 167 mls/hr Sodium Chloride (Sodium Chloride 0.45%) 1,000 mls @ 75 mls/hr IV .[id number] [facility] Piperacillin Sod/Tazobactam Sod (Zosyn 3.375 In Ns 100ml) 100 mls @ 25 mls/hr IVPB Q12 [facility]; Protocol Last Admin: 04/27/18 23:46 Dose: 25 mls/hr Dextrose (Dextrose 5% In Water 1000 Ml) 1,000 mls @ 0 mls/hr IV .Q0M PRN; Protocol PRN Reason: Hypoglycemia Protocol Insulin Human Regular (Humulin R High) 0 units SC ACHS [facility]; Protocol Losartan Potassium (Cozaar) 100 mg PO DAILY [facility] Last Admin: 04/27/18 09:32 Dose: 100 mg Metformin HCl (Glucophage) 1,000 mg PO BID [facility] Last Admin: 04/27/18 17:03 Dose: 1,000 mg - Labs Labs: 04/27/18 07:40 04/27/18 07:40 PT 11.1 SECONDS (9.4-12.5) 04/26/18 19:14 INR 1.00 04/26/18 19:14 APTT 24.4 Seconds (26.9-38.3) L 04/26/18 19:14 - Constitutional Appears: Non-toxic, No Acute Distress - Head Exam Head Exam: ATRAUMATIC, NORMOCEPHALIC - Extremities Exam Additional comments: B/L Lower extremity exam: VASC: DP and PT non-palpable to the right, and faintly palpable to the left, CFT delayed to 5 seconds, TG warm to cool R > L, pitting edema noted to bilateral lower extremity R > L NEURO: grossly intact DERM: two wounds noted to the posterior aspect of the right leg, no drainage, wounds scabbed over, no malodor, no probe to bone, no signs of infection, no fluctuance noted ORTHO: pain on palpation the posterior right leg wounds, decreased muscle strength on the right 4/5 due to previosu CVA, MSK 5/5 on the left - Neurological Exam Neurological Exam: Alert, Awake, Oriented x3 - Psychiatric Exam Psychiatric exam: Normal Affect, Normal Mood - Skin Skin Exam: Warm Assessment and Plan - Assessment and Plan (Free Text) Assessment: 68F patient with R lower extremity wound, with b/l edema Plan: Patient was seen and evaluated with Dr. Velazquez Afebrile, WBC 11 Tib-Fib X-ray: no radiographic evidence of ostemyelitis Ordered EMELI to evaluate for PVD Placed Vascular consult for Dr. Mulligan, recommendations appreciated Wound Culture; gram - yakelin, f/u with final results Wound cleansed with saline and dressed with xeroform, DSD Will continue to follow up with patient while in house <David Velazquez - Last Filed: 04/30/18 09:04> Objective - Vital Signs/Intake and Output Vital Signs (last 24 hours): Temp Pulse Resp BP Pulse Ox 99.1 F 80 18 146/73 94 L 04/30/18 08:19 04/30/18 08:19 04/30/18 08:19 04/30/18 08:19 04/30/18 08:19 Intake and Output: 04/30/18 04/30/18 06:59 18:59 Intake Total 120 Balance 120 - Medications Medications: Current Medications Acetaminophen (Tylenol 325mg Tab) 650 mg PO Q6H PRN PRN Reason: Fever >100.4 F Last Admin: 04/27/18 04:25 Dose: 650 mg Acetaminophen (Tylenol 325mg Tab) 650 mg PO Q4H PRN PRN Reason: Pain, moderate (4-7) Last Admin: 04/30/18 06:14 Dose: 650 mg Amlodipine Besylate (Norvasc) 10 mg PO DAILY [facility] Last Admin: 04/29/18 10:08 Dose: 10 mg Atorvastatin Calcium (Lipitor) 20 mg PO DIN [facility] Last Admin: 04/29/18 17:11 Dose: 20 mg Calcitriol (Rocaltrol) 0.5 mcg PO DAILY [facility] Last Admin: 04/29/18 12:23 Dose: 0.5 mcg Dextrose (Dextrose 50% Inj) 0 ml IV STAT PRN; Protocol PRN Reason: Hypoglycemia Protocol Dipyridamole/Aspirin (Aggrenox 25-200 Mg) 1 ea PO DAILY [facility] Last Admin: 02/17/19 10:08 Dose: 1 ea Furosemide (Lasix) 20 mg PO DAILY [facility] Last Admin: 04/28/18 11:10 Dose: Not Given Glipizide (Glucotrol Xl) 10 mg PO BID [facility] Last Admin: 04/28/18 11:11 Dose: Not Given Heparin Sodium (Porcine) (Heparin) 5,000 units SC Q12 [facility]; Protocol Last Admin: 04/29/18 21:59 Dose: 5,000 units Sodium Chloride (Sodium Chloride 0.45%) 1,000 mls @ 75 mls/hr IV .[id number] [facility] Last Admin: 04/29/18 22:28 Dose: 75 mls/hr Piperacillin Sod/Tazobactam Sod (Zosyn 3.375 In Ns 100ml) 100 mls @ 25 mls/hr IVPB Q12 [facility]; Protocol Last Admin: 04/29/18 21:59 Dose: 25 mls/hr Dextrose (Dextrose 5% In Water 1000 Ml) 1,000 mls @ 0 mls/hr IV .Q0M PRN; Protocol PRN Reason: Hypoglycemia Protocol Insulin Detemir (Levemir) 10 unit SC HS [facility] Last Admin: 04/29/18 21:59 Dose: 10 units Insulin Human Regular (Humulin R High) 0 units SC ACHS [facility]; Protocol Last Admin: 04/29/18 21:59 Dose: 2 units Losartan Potassium (Cozaar) 100 mg PO DAILY [facility] Last Admin: 04/29/18 10:08 Dose: 100 mg Metformin HCl (Glucophage) 1,000 mg PO BID [facility] Last Admin: 04/28/18 11:13 Dose: Not Given Pantoprazole Sodium (Protonix Ec Tab) 40 mg PO 0600 [facility] Last Admin: 04/30/18 05:31 Dose: 40 mg - Labs Labs: 04/30/18 07:48 04/30/18 07:48 PT 11.1 SECONDS (9.4-12.5) 04/26/18 19:14 INR 1.00 04/26/18 19:14 APTT 24.4 Seconds (26.9-38.3) L 04/26/18 19:14 Attending/Attestation - Attestation I have personally seen and examined this patient.: Yes I have fully participated in the care of the patient.: Yes I have reviewed all pertinent clinical information, including history, physical exam and plan: Yes
[2018-04-28 08:03] LABS: BASO # 0.02 K/mm3 (0.0-2.0); BASO % 0.2 % (0.0-3.0); EOS # 0.1 (0.0-0.7); EOS % 1.3 % (1.5-5.0); HEMOGLOBIN 10.3 g/dL (12.0-16.0); LYMPH % 18.6 % (22.0-35.0); MEAN CELL VOLUME 84.6 fl (80.0-105.0); MEAN CORPUSCULAR HEMOGLOBIN 27.3 pg (25.0-35.0); MEAN CORPUSCULAR HGB CONC 32.3 g/dl (31.0-37.0); MEAN PLATELET VOLUME 10.7 fl (7.0-11.0); MONO # 0.8 (0.1-0.6); MONO % 6.9 % (1.0-6.0); RBC 3.77 10^6/uL (3.5-6.1); RED CELL DISTRIBUTION WIDTH 13.9 % (11.5-14.5)
[2018-04-28] MEDS: Vancomycin 1gm in NS 250ml 1 GM/250 ML BAG IVPB SCH ×2 (08:10→20:33)
[2018-04-28] MEDS: Insulin Reg-HIGH-Coverage SC SCH ×3 (08:10→21:35)
[2018-04-28 08:22] LABS: ALBUMIN 3.7 g/dL (3.0-4.8); CALCIUM 9.6 mg/dL (8.4-10.5)
[2018-04-28] MEDS: Aspirin-Dipyridamole 200-25 mg ER Cap PO SCH (09:29)
[2018-04-28] MEDS: Piperacillin/Tazobact 3.375 gm 100 ML IVPB SCH ×2 (09:30→21:36)
[2018-04-28] MEDS: GlipiZIDE 10 mg SR Tab PO SCH (11:11)
[2018-04-28] MEDS ORDERED: Insulin Regular 1 UNITS/0.01 ML ML SC ONE (11:44)
[2018-04-28] MEDS: Sodium Chloride 0.45% 1,000 ML IV SCH (16:36)
--- NOTE | 2018-04-28 17:05 | CP.PCM.PN ---
<Cesario Kirk - Last Filed: 04/28/18 17:02> Subjective - Date & Time of Evaluation Date of Evaluation: 04/28/18 Time of Evaluation: 17:02 - Subjective Subjective: Cesario Kirk, PGY-1, Internal Medicine Progress Note for Dr. Anthony Patient seen and evaluated at bedside. Patient had no acute overnight events. Patient had right leg pain, shortness of breath, no cough or sputum, and last bowel movement was 2-3 days ago. Patient denied any other present symptoms. 12- point ROS was unremarkable as mentioned above. Objective - Vital Signs/Intake and Output Vital Signs (last 24 hours): Temp Pulse Resp BP Pulse Ox 99 F 98 H 20 122/67 99 04/28/18 15:35 04/28/18 15:35 04/28/18 15:35 04/28/18 15:35 04/28/18 15:35 Intake and Output: 04/28/18 04/28/18 06:59 18:59 Intake Total 540 780 Balance 540 780 - Medications Medications: Current Medications Acetaminophen (Tylenol 325mg Tab) 650 mg PO Q6H PRN PRN Reason: Fever >100.4 F Last Admin: 04/27/18 04:25 Dose: 650 mg Acetaminophen (Tylenol 325mg Tab) 650 mg PO Q4H PRN PRN Reason: Pain, moderate (4-7) Last Admin: 04/28/18 14:04 Dose: 650 mg Amlodipine Besylate (Norvasc) 10 mg PO DAILY [facility] Last Admin: 04/28/18 09:29 Dose: 10 mg Atorvastatin Calcium (Lipitor) 20 mg PO DIN [facility] Last Admin: 04/27/18 17:03 Dose: 20 mg Calcitriol (Rocaltrol) 0.5 mcg PO DAILY [facility] Last Admin: 04/28/18 09:29 Dose: 0.5 mcg Dextrose (Dextrose 50% Inj) 0 ml IV STAT PRN; Protocol PRN Reason: Hypoglycemia Protocol Dipyridamole/Aspirin (Aggrenox 25-200 Mg) 1 ea PO DAILY [facility] Last Admin: 04/28/18 09:29 Dose: 1 ea Furosemide (Lasix) 20 mg PO DAILY [facility] Last Admin: 04/28/18 11:10 Dose: Not Given Glipizide (Glucotrol Xl) 10 mg PO BID [facility] Last Admin: 04/28/18 11:11 Dose: Not Given Heparin Sodium (Porcine) (Heparin) 5,000 units SC Q12 [facility]; Protocol Last Admin: 04/28/18 09:28 Dose: 5,000 units Vancomycin HCl (Vancomycin 1gm) 1 gm in 250 mls @ 167 mls/hr IVPB Q12H [facility]; Protocol Last Admin: 04/28/18 08:10 Dose: 167 mls/hr Sodium Chloride (Sodium Chloride 0.45%) 1,000 mls @ 75 mls/hr IV .[id number] [facility] Last Admin: 04/28/18 16:36 Dose: 75 mls/hr Piperacillin Sod/Tazobactam Sod (Zosyn 3.375 In Ns 100ml) 100 mls @ 25 mls/hr IVPB Q12 [facility]; Protocol Last Admin: 04/28/18 09:30 Dose: 25 mls/hr Dextrose (Dextrose 5% In Water 1000 Ml) 1,000 mls @ 0 mls/hr IV .Q0M PRN; Protocol PRN Reason: Hypoglycemia Protocol Insulin Detemir (Levemir) 10 unit SC HS [facility] Insulin Human Regular (Humulin R High) 0 units SC ACHS [facility]; Protocol Last Admin: 04/28/18 16:26 Dose: 10 units Losartan Potassium (Cozaar) 100 mg PO DAILY [facility] Last Admin: 04/28/18 09:30 Dose: 100 mg Metformin HCl (Glucophage) 1,000 mg PO BID [facility] Last Admin: 04/28/18 11:13 Dose: Not Given - Labs Labs: 04/28/18 07:20 04/28/18 07:20 PT 11.1 SECONDS (9.4-12.5) 04/26/18 19:14 INR 1.00 04/26/18 19:14 APTT 24.4 Seconds (26.9-38.3) L 04/26/18 19:14 - Constitutional Appears: Well, Non-toxic, No Acute Distress - Head Exam Head Exam: ATRAUMATIC, NORMAL INSPECTION, NORMOCEPHALIC - Eye Exam Eye Exam: EOMI, PERRL - ENT Exam ENT Exam: Mucous Membranes Moist - Neck Exam Neck Exam: Full ROM - Respiratory Exam Respiratory Exam: Clear to Ausculation Bilateral, NORMAL BREATHING PATTERN - Cardiovascular Exam Cardiovascular Exam: REGULAR RHYTHM, RRR Additional comments: DP and PT non-palpable to the right, and faintly palpable to the left, CFT delayed to 5 seconds, TG warm to cool R > L, pitting edema noted to bilateral lower extremity R > L - GI/Abdominal Exam GI & Abdominal Exam: Soft, Normal Bowel Sounds. absent: Tenderness - Extremities Exam Extremities Exam: Full ROM Additional comments: two wounds noted to the posterior aspect of the right leg, no drainage, wounds scabbed over, no malodor, no fluctuance - Neurological Exam Neurological Exam: Alert, Awake, CN II-XII Intact, Oriented x3 - Skin Skin Exam: Dry, Intact Assessment and Plan - Assessment and Plan (Free Text) Assessment: 68 year old female with past medical history of hypertension, type II diabetes mellitus, CKD, CVA, and TIA presented with lowe extremity swelling starting a few weeks ago. Plan: Rule out osteomyelitis -Ankle X ray 04/27: mild focal periosteal thickening of lateral aspect of distal right fibula without cortical erosion. Adjacent soft tissue swelling and heterogenous density likely represents soft tissue inflammatory or infectious process -Patient for MRI of ankle likely on Monday to confirm osteomyelitis -Continue with vancomycin and zosyn day 2 Peripheral Vascular disease -Extremity US 04/27: significant right distal SFA, popliteal, and tibial disease. -Wound culture 04/27: gram negative yakelin -Blood culture 04/26: negative for 24 hours -As per Dr. Vlad Mulligan, will follow up with MRA runoff on Monday to evaluate right lower extremity occlusive disease -As per nephrology, Dr. Mccauley, patient is clear for MRA with gadolinium on Monday and NS at 75cc/hr was started. -Wound cleansed with saline and dressed with xeroform and DSD -EMELI: follow up Hypertension -Continue with norvasc 10 mg daily, cozaar 100 mg daily Type II Diabetes Mellitus -Random glucose: 409 -HgbA1c: 11.5 -Continue with High SSI and started levemir 10 mg HS -Held glipizide, metformin due to patient's renal status Hypomagnesia -M.5 -Repleted with MgSO4 MATHEW on CKD Stage 3B -Cr: 1.7 with baseline of 1.5 -As per nephrology, Dr. Mccauley, patient is clear for MRA and MRI with gadolinium on Monday -Hold metformin, glipizide, and lasix due to nephrotoxic effects -Continue with NS at 75cc/hr -Continue with calcitriol History of CVA -Continue with aspirin/dipyridamole, and lipitor GI prophylaxis: protonix 40 mg daily DVT prophylaxis: heparin 5000 U Q12 Patient plan discussed with attending. <Bud Anthony - Last Filed: 04/28/18 17:30> Objective - Vital Signs/Intake and Output Vital Signs (last 24 hours): Temp Pulse Resp BP Pulse Ox 99 F 98 H 20 122/67 99 04/28/18 15:35 04/28/18 15:35 04/28/18 15:35 04/28/18 15:35 04/28/18 15:35 Intake and Output: 04/28/18 04/28/18 06:59 18:59 Intake Total 540 780 Balance 540 780 - Medications Medications: Current Medications Acetaminophen (Tylenol 325mg Tab) 650 mg PO Q6H PRN PRN Reason: Fever >100.4 F Last Admin: 04/27/18 04:25 Dose: 650 mg Acetaminophen (Tylenol 325mg Tab) 650 mg PO Q4H PRN PRN Reason: Pain, moderate (4-7) Last Admin: 04/28/18 14:04 Dose: 650 mg Amlodipine Besylate (Norvasc) 10 mg PO DAILY [facility] Last Admin: 04/28/18 09:29 Dose: 10 mg Atorvastatin Calcium (Lipitor) 20 mg PO DIN [facility] Last Admin: 04/28/18 17:24 Dose: 20 mg Calcitriol (Rocaltrol) 0.5 mcg PO DAILY [facility] Last Admin: 04/28/18 09:29 Dose: 0.5 mcg Dextrose (Dextrose 50% Inj) 0 ml IV STAT PRN; Protocol PRN Reason: Hypoglycemia Protocol Dipyridamole/Aspirin (Aggrenox 25-200 Mg) 1 ea PO DAILY [facility] Last Admin: 04/28/18 09:29 Dose: 1 ea Furosemide (Lasix) 20 mg PO DAILY [facility] Last Admin: 04/28/18 11:10 Dose: Not Given Glipizide (Glucotrol Xl) 10 mg PO BID [facility] Last Admin: 04/28/18 11:11 Dose: Not Given Heparin Sodium (Porcine) (Heparin) 5,000 units SC Q12 [facility]; Protocol Last Admin: 04/28/18 09:28 Dose: 5,000 units Vancomycin HCl (Vancomycin 1gm) 1 gm in 250 mls @ 167 mls/hr IVPB Q12H [facility]; Protocol Last Admin: 04/28/18 08:10 Dose: 167 mls/hr Sodium Chloride (Sodium Chloride 0.45%) 1,000 mls @ 75 mls/hr IV .[id number] [facility] Last Admin: 04/28/18 16:36 Dose: 75 mls/hr Piperacillin Sod/Tazobactam Sod (Zosyn 3.375 In Ns 100ml) 100 mls @ 25 mls/hr IVPB Q12 [facility]; Protocol Last Admin: 04/28/18 09:30 Dose: 25 mls/hr Dextrose (Dextrose 5% In Water 1000 Ml) 1,000 mls @ 0 mls/hr IV .Q0M PRN; Protocol PRN Reason: Hypoglycemia Protocol Magnesium Sulfate/Dextrose (Magnesium Sulfate 1 Gm/100 Ml D5w) 1 gm in 100 mls @ 100 mls/hr IVPB ONCE ONE Stop: 04/28/18 18:11 Last Admin: 04/28/18 17:24 Dose: 100 mls/hr Insulin Detemir (Levemir) 10 unit SC HS [facility] Insulin Human Regular (Humulin R High) 0 units SC ACHS [facility]; Protocol Last Admin: 04/28/18 16:26 Dose: 10 units Losartan Potassium (Cozaar) 100 mg PO DAILY [facility] Last Admin: 04/28/18 09:30 Dose: 100 mg Metformin HCl (Glucophage) 1,000 mg PO BID [facility] Last Admin: 04/28/18 11:13 Dose: Not Given Pantoprazole Sodium (Protonix Ec Tab) 40 mg PO 0600 [facility] - Labs Labs: 04/28/18 07:20 04/28/18 07:20 PT 11.1 SECONDS (9.4-12.5) 04/26/18 19:14 INR 1.00 04/26/18 19:14 APTT 24.4 Seconds (26.9-38.3) L 04/26/18 19:14 Attending/Attestation - Attestation I have personally seen and examined this patient.: Yes I have fully participated in the care of the patient.: Yes I have reviewed all pertinent clinical information, including history, physical exam and plan: Yes Notes (Text): 04/28/18 17:27 68 year old female with past medical history of hypertension, diabetes, CKD and CVA presents with RLE ulcer and edema. She is on iv antibiotics. Wound culture is growing gram negative yakelin. ID and podiatry are following. Xray showed mild focal periosteal thickening at the lateral aspect of the distal right fibula with adjacent soft tissue swelling. MRI ordered to rule out osteomyelitis. Dopplers showed significant right distal SFA, popliteal and/or tibial disease. IR ordered for MRA. Continue with iv fluids for acute on chronic kidney disease. Nephrology evaluation was requested. Hold metformin and glipizide for now. Bud Anthony MD Hospitalist.
[2018-04-28] MEDS ORDERED: Magnesium Sulfate 1 gm in D5W 1 GM/100 ML BAG IVPB ONE (17:12)
[2018-04-28] MEDS: Insulin Detemir 100 units/ml Vial (Levemir) SC SCH (21:36)
--- NOTE | 2018-04-28 22:26 | CP.PCM.PN ---
Subjective - Date & Time of Evaluation Date of Evaluation: 04/28/18 Time of Evaluation: 20:00 - Subjective Subjective: Infectious Disease Follow Up: April 28, 2018 68 yo female with presentation of lower extremity swelling in the right initially that started several weeks ago. The patient is having difficulties with ambulation especially in the right leg. Her PMHx includes HTN, T2DM, CKD, CVA, TIA. Two ulcerations on the posterior right leg. Patient on the whole feels very comfortable. Objective - Vital Signs/Intake and Output Vital Signs (last 24 hours): Temp Pulse Resp BP Pulse Ox 98.7 F 78 20 119/61 97 04/28/18 21:30 04/28/18 21:30 04/28/18 21:30 04/28/18 21:30 04/28/18 21:30 Intake and Output: 04/28/18 04/29/18 18:59 06:59 Intake Total 780 Balance 780 - Medications Medications: Current Medications Acetaminophen (Tylenol 325mg Tab) 650 mg PO Q6H PRN PRN Reason: Fever >100.4 F Last Admin: 04/27/18 04:25 Dose: 650 mg Acetaminophen (Tylenol 325mg Tab) 650 mg PO Q4H PRN PRN Reason: Pain, moderate (4-7) Last Admin: 04/28/18 14:04 Dose: 650 mg Amlodipine Besylate (Norvasc) 10 mg PO DAILY [facility] Last Admin: 04/28/18 09:29 Dose: 10 mg Atorvastatin Calcium (Lipitor) 20 mg PO DIN [facility] Last Admin: 04/28/18 17:24 Dose: 20 mg Calcitriol (Rocaltrol) 0.5 mcg PO DAILY [facility] Last Admin: 04/28/18 09:29 Dose: 0.5 mcg Dextrose (Dextrose 50% Inj) 0 ml IV STAT PRN; Protocol PRN Reason: Hypoglycemia Protocol Dipyridamole/Aspirin (Aggrenox 25-200 Mg) 1 ea PO DAILY [facility] Last Admin: 04/28/18 09:29 Dose: 1 ea Furosemide (Lasix) 20 mg PO DAILY [facility] Last Admin: 04/28/18 11:10 Dose: Not Given Glipizide (Glucotrol Xl) 10 mg PO BID [facility] Last Admin: 04/28/18 11:11 Dose: Not Given Heparin Sodium (Porcine) (Heparin) 5,000 units SC Q12 [facility]; Protocol Last Admin: 04/28/18 21:35 Dose: 5,000 units Vancomycin HCl (Vancomycin 1gm) 1 gm in 250 mls @ 167 mls/hr IVPB Q12H [facility]; Protocol Last Admin: 04/28/18 20:33 Dose: 167 mls/hr Sodium Chloride (Sodium Chloride 0.45%) 1,000 mls @ 75 mls/hr IV .[id number] [facility] Last Admin: 04/28/18 16:36 Dose: 75 mls/hr Piperacillin Sod/Tazobactam Sod (Zosyn 3.375 In Ns 100ml) 100 mls @ 25 mls/hr IVPB Q12 [facility]; Protocol Last Admin: 04/28/18 21:36 Dose: 25 mls/hr Dextrose (Dextrose 5% In Water 1000 Ml) 1,000 mls @ 0 mls/hr IV .Q0M PRN; Protocol PRN Reason: Hypoglycemia Protocol Insulin Detemir (Levemir) 10 unit SC HS [facility] Last Admin: 04/28/18 21:36 Dose: 10 units Insulin Human Regular (Humulin R High) 0 units SC ACHS [facility]; Protocol Last Admin: 04/28/18 21:35 Dose: 3 units Losartan Potassium (Cozaar) 100 mg PO DAILY [facility] Last Admin: 04/28/18 09:30 Dose: 100 mg Metformin HCl (Glucophage) 1,000 mg PO BID [facility] Last Admin: 04/28/18 11:13 Dose: Not Given Pantoprazole Sodium (Protonix Ec Tab) 40 mg PO 0600 [facility] - Labs Labs: 04/28/18 07:20 04/28/18 07:20 PT 11.1 SECONDS (9.4-12.5) 04/26/18 19:14 INR 1.00 04/26/18 19:14 APTT 24.4 Seconds (26.9-38.3) L 04/26/18 19:14 - Constitutional Appears: Non-toxic, No Acute Distress - Head Exam Head Exam: ATRAUMATIC, NORMOCEPHALIC - Eye Exam Eye Exam: EOMI, PERRL Pupil Exam: NORMAL ACCOMODATION, PERRL - ENT Exam ENT Exam: Mucous Membranes Moist, Normal External Ear Exam, TM's Normal Bilaterally - Neck Exam Neck Exam: Full ROM, Normal Inspection - Respiratory Exam Respiratory Exam: Clear to Ausculation Bilateral, NORMAL BREATHING PATTERN. absent: Rales, Rhonchi, Wheezes - Cardiovascular Exam Cardiovascular Exam: REGULAR RHYTHM, RRR, +S1, +S2 - GI/Abdominal Exam GI & Abdominal Exam: Soft, Normal Bowel Sounds. absent: Distended, Tenderness - Extremities Exam Extremities Exam: Pedal Edema Additional comments: bilateral lower extremity swelling and pitting edema R>L that is improving RLE mildly warm, non erythematous, non tender to palpation two ulcerations on right calf that appear to be healed - Neurological Exam Neurological Exam: Alert, Awake, CN II-XII Intact, Oriented x3 - Psychiatric Exam Psychiatric exam: Normal Affect, Normal Mood - Skin Skin Exam: Intact, Normal Color Assessment and Plan - Assessment and Plan (Free Text) Assessment: 68 yo female with right lower extremity swelling with ulcerations to the posterior of the leg. The ulcerations appear to be healed at this time. Started on Vancomycin and Zosyn for antibiotic coverage. The patient has multiple medical issues that include HTN and DM Type 2. Local wound care. Duplex studies. Check ESR. For now, continue with Zosyn and Vancomycin IV. Ulceration sites do not appear infected. Wound care as per Podiatry. Can switch to oral antibiotics when ready for discharge. Supportive care. Thank you for allowing me to participate in the care of the patient, we will follow with you.
[2018-04-29] MEDS: Pantoprazole 40 mg EC Tab PO SCH (05:27)
[2018-04-29] MEDS: Vancomycin 1gm in NS 250ml 1 GM/250 ML BAG IVPB SCH (07:09)
[2018-04-29 07:57] LABS: BASO # 0.04 K/mm3 (0.0-2.0); BASO % 0.4 % (0.0-3.0); EOS # 0.3 (0.0-0.7); EOS % 3.5 % (1.5-5.0); HEMOGLOBIN 9.8 g/dL (12.0-16.0); LYMPH # 2.7 (1.2-3.4); LYMPH % 28.8 % (22.0-35.0); MEAN CELL VOLUME 84.2 fl (80.0-105.0); MEAN CORPUSCULAR HEMOGLOBIN 26.7 pg (25.0-35.0); MEAN CORPUSCULAR HGB CONC 31.7 g/dl (31.0-37.0); MEAN PLATELET VOLUME 10.3 fl (7.0-11.0); MONO # 0.6 (0.1-0.6); MONO % 6.7 % (1.0-6.0); RBC 3.67 10^6/uL (3.5-6.1); RED CELL DISTRIBUTION WIDTH 13.9 % (11.5-14.5); WHITE BLOOD COUNT 9.4 10^3/uL (4.5-11.0)
[2018-04-29] MEDS: Insulin Reg-HIGH-Coverage SC SCH ×5 (08:23→21:59)
[2018-04-29 08:29] LABS: ALB/GLOB RATIO 0.9 (1.1-1.8); ALBUMIN 3.5 g/dL (3.0-4.8); CALCIUM 9.9 mg/dL (8.4-10.5)
[2018-04-29] MEDS: Piperacillin/Tazobact 3.375 gm 100 ML IVPB SCH ×2 (10:08→21:59)
[2018-04-29] MEDS: Aspirin-Dipyridamole 200-25 mg ER Cap PO SCH (10:08)
--- NOTE | 2018-04-29 15:08 | CP.PCM.PN ---
<Cesario Kirk - Last Filed: 04/29/18 15:30> Subjective - Date & Time of Evaluation Date of Evaluation: 04/29/18 Time of Evaluation: 15:05 - Subjective Subjective: Cesario Kirk, PGY-1, Internal Medicine Progress Note for Dr. Anthony Patient seen and evaluated at bedside. Patient had no acute overnight events. At bedside, patient complained of right leg pain. Patient denied any other present symptoms including chest pain, shortness of breath, nausea, vomiting, constipation, diarrhea, dysuria, hematuria. 12-point ROS was unremarkable as mentioned above. Objective - Vital Signs/Intake and Output Vital Signs (last 24 hours): Temp Pulse Resp BP Pulse Ox 98.4 F 77 20 141/67 96 04/29/18 06:00 04/29/18 06:00 04/29/18 06:00 04/29/18 10:08 04/29/18 06:00 - Medications Medications: Current Medications Acetaminophen (Tylenol 325mg Tab) 650 mg PO Q6H PRN PRN Reason: Fever >100.4 F Last Admin: 04/27/18 04:25 Dose: 650 mg Acetaminophen (Tylenol 325mg Tab) 650 mg PO Q4H PRN PRN Reason: Pain, moderate (4-7) Last Admin: 04/28/18 23:34 Dose: 650 mg Amlodipine Besylate (Norvasc) 10 mg PO DAILY [facility] Last Admin: 04/29/18 10:08 Dose: 10 mg Atorvastatin Calcium (Lipitor) 20 mg PO DIN [facility] Last Admin: 04/28/18 17:24 Dose: 20 mg Calcitriol (Rocaltrol) 0.5 mcg PO DAILY [facility] Last Admin: 04/29/18 12:23 Dose: 0.5 mcg Dextrose (Dextrose 50% Inj) 0 ml IV STAT PRN; Protocol PRN Reason: Hypoglycemia Protocol Dipyridamole/Aspirin (Aggrenox 25-200 Mg) 1 ea PO DAILY [facility] Last Admin: 04/29/18 10:08 Dose: 1 ea Furosemide (Lasix) 20 mg PO DAILY [facility] Last Admin: 04/28/18 11:10 Dose: Not Given Glipizide (Glucotrol Xl) 10 mg PO BID [facility] Last Admin: 04/28/18 11:11 Dose: Not Given Heparin Sodium (Porcine) (Heparin) 5,000 units SC Q12 [facility]; Protocol Last Admin: 04/29/18 10:08 Dose: 5,000 units Vancomycin HCl (Vancomycin 1gm) 1 gm in 250 mls @ 167 mls/hr IVPB Q12H [facility]; Protocol Last Admin: 04/29/18 07:09 Dose: 167 mls/hr Sodium Chloride (Sodium Chloride 0.45%) 1,000 mls @ 75 mls/hr IV .[id number] [facility] Last Admin: 04/28/18 16:36 Dose: 75 mls/hr Piperacillin Sod/Tazobactam Sod (Zosyn 3.375 In Ns 100ml) 100 mls @ 25 mls/hr IVPB Q12 [facility]; Protocol Last Admin: 04/29/18 10:08 Dose: 25 mls/hr Dextrose (Dextrose 5% In Water 1000 Ml) 1,000 mls @ 0 mls/hr IV .Q0M PRN; Protocol PRN Reason: Hypoglycemia Protocol Insulin Detemir (Levemir) 10 unit SC HS [facility] Last Admin: 04/28/18 21:36 Dose: 10 units Insulin Human Regular (Humulin R High) 0 units SC ACHS [facility]; Protocol Last Admin: 04/29/18 13:01 Dose: 4 units Losartan Potassium (Cozaar) 100 mg PO DAILY [facility] Last Admin: 04/29/18 10:08 Dose: 100 mg Metformin HCl (Glucophage) 1,000 mg PO BID [facility] Last Admin: 04/28/18 11:13 Dose: Not Given Pantoprazole Sodium (Protonix Ec Tab) 40 mg PO 0600 [facility] Last Admin: 04/29/18 05:27 Dose: 40 mg - Labs Labs: 04/29/18 07:30 04/29/18 07:30 PT 11.1 SECONDS (9.4-12.5) 04/26/18 19:14 INR 1.00 04/26/18 19:14 APTT 24.4 Seconds (26.9-38.3) L 04/26/18 19:14 - Constitutional Appears: Well, Non-toxic, No Acute Distress - Head Exam Head Exam: ATRAUMATIC, NORMAL INSPECTION, NORMOCEPHALIC - Eye Exam Eye Exam: EOMI, PERRL - ENT Exam ENT Exam: Mucous Membranes Moist - Neck Exam Neck Exam: Full ROM - Respiratory Exam Respiratory Exam: Clear to Ausculation Bilateral, NORMAL BREATHING PATTERN - Cardiovascular Exam Cardiovascular Exam: REGULAR RHYTHM, RRR Additional comments: DP and PT non-palpable to the right, and faintly palpable to the left, CFT delayed to 5 seconds, TG warm to cool R > L, pitting edema noted to bilateral lower extremity R > L - GI/Abdominal Exam GI & Abdominal Exam: Soft, Normal Bowel Sounds. absent: Tenderness - Extremities Exam Extremities Exam: Full ROM Additional comments: two wounds noted to the posterior aspect of the right leg, no drainage, wounds scabbed over, no malodor, no fluctuance - Neurological Exam Neurological Exam: Alert, Awake, CN II-XII Intact, Oriented x3 - Skin Skin Exam: Dry, Intact Assessment and Plan - Assessment and Plan (Free Text) Assessment: 68 year old female with past medical history of hypertension, type II diabetes mellitus, CKD, CVA, and TIA presented with lowe extremity swelling starting a few weeks ago. Plan: Rule out osteomyelitis -Ankle X ray 04/27: mild focal periosteal thickening of lateral aspect of distal right fibula without cortical erosion. Adjacent soft tissue swelling and heterogenous density likely represents soft tissue inflammatory or infectious process -Follow up MRI of ankle results to confirm osteomyelitis -Continue with vancomycin and zosyn day 3 Peripheral Vascular disease -Extremity US 04/27: significant right distal SFA, popliteal, and tibial disease. -Wound culture 04/27: Enterobacter Cloacae Ssp Cloac. Sensitive to all species but cefazolin. -Skin culture of right calf on 04/26: coaguloase negative staphylococcus -Blood culture 04/26: negative for 24 hours -As per Dr. Vlad Mulligan, will follow up with MRA runoff on Monday to evaluate right lower extremity occlusive disease -As per nephrology, Dr. Mccauley, patient is clear for MRA with gadolinium on Monday and NS at 75cc/hr was started. -Wound cleansed with saline and dressed with xeroform and DSD -EMELI: follow up Hypertension -Continue with norvasc 10 mg daily, cozaar 100 mg daily Type II Diabetes Mellitus -Random glucose: 201 -HgbA1c: 11.3 -Continue with High SSI and started levemir 10 mg HS -Held glipizide, metformin due to patient's renal status MATHEW on CKD Stage 3B -Cr: 1.6 with baseline of 1.5 -As per nephrology, Dr. Mccauley, patient is clear for MRA and MRI with gadolinium on Monday -Hold metformin, glipizide, and lasix due to nephrotoxic effects -Continue with NS at 75cc/hr -Continue with calcitriol History of CVA -Continue with aspirin/dipyridamole, and lipitor GI prophylaxis: protonix 40 mg daily DVT prophylaxis: heparin 5000 U Q12 Patient plan discussed with attending. <Bud Anthony - Last Filed: 04/29/18 15:56> Objective - Vital Signs/Intake and Output Vital Signs (last 24 hours): Temp Pulse Resp BP Pulse Ox 98.4 F 77 20 141/67 96 04/29/18 06:00 04/29/18 06:00 04/29/18 06:00 04/29/18 10:08 04/29/18 06:00 - Medications Medications: Current Medications Acetaminophen (Tylenol 325mg Tab) 650 mg PO Q6H PRN PRN Reason: Fever >100.4 F Last Admin: 04/27/18 04:25 Dose: 650 mg Acetaminophen (Tylenol 325mg Tab) 650 mg PO Q4H PRN PRN Reason: Pain, moderate (4-7) Last Admin: 04/28/18 23:34 Dose: 650 mg Amlodipine Besylate (Norvasc) 10 mg PO DAILY [facility] Last Admin: 04/29/18 10:08 Dose: 10 mg Atorvastatin Calcium (Lipitor) 20 mg PO DIN [facility] Last Admin: 04/28/18 17:24 Dose: 20 mg Calcitriol (Rocaltrol) 0.5 mcg PO DAILY [facility] Last Admin: 04/29/18 12:23 Dose: 0.5 mcg Dextrose (Dextrose 50% Inj) 0 ml IV STAT PRN; Protocol PRN Reason: Hypoglycemia Protocol Dipyridamole/Aspirin (Aggrenox 25-200 Mg) 1 ea PO DAILY [facility] Last Admin: 04/29/18 10:08 Dose: 1 ea Furosemide (Lasix) 20 mg PO DAILY [facility] Last Admin: 04/28/18 11:10 Dose: Not Given Glipizide (Glucotrol Xl) 10 mg PO BID [facility] Last Admin: 04/28/18 11:11 Dose: Not Given Heparin Sodium (Porcine) (Heparin) 5,000 units SC Q12 [facility]; Protocol Last Admin: 04/29/18 10:08 Dose: 5,000 units Vancomycin HCl (Vancomycin 1gm) 1 gm in 250 mls @ 167 mls/hr IVPB Q12H [facility]; Protocol Last Admin: 04/29/18 07:09 Dose: 167 mls/hr Sodium Chloride (Sodium Chloride 0.45%) 1,000 mls @ 75 mls/hr IV .[id number] [facility] Last Admin: 04/28/18 16:36 Dose: 75 mls/hr Piperacillin Sod/Tazobactam Sod (Zosyn 3.375 In Ns 100ml) 100 mls @ 25 mls/hr IVPB Q12 [facility]; Protocol Last Admin: 04/29/18 10:08 Dose: 25 mls/hr Dextrose (Dextrose 5% In Water 1000 Ml) 1,000 mls @ 0 mls/hr IV .Q0M PRN; Protocol PRN Reason: Hypoglycemia Protocol Insulin Detemir (Levemir) 10 unit SC HS [facility] Last Admin: 04/28/18 21:36 Dose: 10 units Insulin Human Regular (Humulin R High) 0 units SC ACHS [facility]; Protocol Last Admin: 04/29/18 13:01 Dose: 4 units Losartan Potassium (Cozaar) 100 mg PO DAILY [facility] Last Admin: 04/29/18 10:08 Dose: 100 mg Metformin HCl (Glucophage) 1,000 mg PO BID [facility] Last Admin: 04/28/18 11:13 Dose: Not Given Pantoprazole Sodium (Protonix Ec Tab) 40 mg PO 0600 [facility] Last Admin: 04/29/18 05:27 Dose: 40 mg - Labs Labs: 04/29/18 07:30 04/29/18 07:30 PT 11.1 SECONDS (9.4-12.5) 04/26/18 19:14 INR 1.00 04/26/18 19:14 APTT 24.4 Seconds (26.9-38.3) L 04/26/18 19:14 Attending/Attestation - Attestation I have personally seen and examined this patient.: Yes I have fully participated in the care of the patient.: Yes I have reviewed all pertinent clinical information, including history, physical exam and plan: Yes Notes (Text): 04/29/18 15:54 68 year old female with past medical history of hypertension, diabetes, CKD and CVA who presented with RLE ulcer and edema. She is on iv antibiotics. Wound culture is growing enterobacter cloacae. ID and podiatry are following. Xray showed mild focal periosteal thickening at the lateral aspect of the distal right fibula with adjacent soft tissue swelling. MRI ordered to rule out os teomyelitis. Dopplers showed significant right distal SFA, popliteal and/or tibial disease. IR ordered for MRA. Continue with iv fluids for acute on chronic kidney disease. Nephrology evaluation was requested. Hold metformin and glipizide for now. A1c is 11 and patient is started on levemir. Bud Anthony MD Hospitalist.
--- NOTE | 2018-04-29 16:55 | CP.PCM.PN ---
Subjective - Date & Time of Evaluation Date of Evaluation: 04/29/18 Time of Evaluation: 15:15 - Subjective Subjective: Infectious Disease Follow Up: April 29, 2018 68 yo female with presentation of lower extremity swelling in the right initially that started several weeks ago. The patient is having difficulties with ambulation especially in the right leg. Her PMHx includes HTN, T2DM, CKD, CVA, TIA. Two ulcerations on the posterior right leg. Patient on the whole feels very comfortable. Wounds appears to be healing /healed. Enterobacter in leg ulcers. No leukocytosis. ESR of 122. CKD Stage II-III. Elevated Hgb A1c of greater than 11. Currently on Vancomycin and Zosyn. Can consider stopping Vancomcyin at this time. Objective - Vital Signs/Intake and Output Vital Signs (last 24 hours): Temp Pulse Resp BP Pulse Ox 99.2 F 75 20 128/63 96 04/29/18 14:00 04/29/18 14:00 04/29/18 14:00 04/29/18 14:00 04/29/18 14:00 - Medications Medications: Current Medications Acetaminophen (Tylenol 325mg Tab) 650 mg PO Q6H PRN PRN Reason: Fever >100.4 F Last Admin: 04/27/18 04:25 Dose: 650 mg Acetaminophen (Tylenol 325mg Tab) 650 mg PO Q4H PRN PRN Reason: Pain, moderate (4-7) Last Admin: 04/28/18 23:34 Dose: 650 mg Amlodipine Besylate (Norvasc) 10 mg PO DAILY [facility] Last Admin: 04/29/18 10:08 Dose: 10 mg Atorvastatin Calcium (Lipitor) 20 mg PO DIN [facility] Last Admin: 04/28/18 17:24 Dose: 20 mg Calcitriol (Rocaltrol) 0.5 mcg PO DAILY [facility] Last Admin: 04/29/18 12:23 Dose: 0.5 mcg Dextrose (Dextrose 50% Inj) 0 ml IV STAT PRN; Protocol PRN Reason: Hypoglycemia Protocol Dipyridamole/Aspirin (Aggrenox 25-200 Mg) 1 ea PO DAILY [facility] Last Admin: 04/29/18 10:08 Dose: 1 ea Furosemide (Lasix) 20 mg PO DAILY [facility] Last Admin: 04/28/18 11:10 Dose: Not Given Glipizide (Glucotrol Xl) 10 mg PO BID [facility] Last Admin: 04/28/18 11:11 Dose: Not Given Heparin Sodium (Porcine) (Heparin) 5,000 units SC Q12 [facility]; Protocol Last Admin: 04/29/18 10:08 Dose: 5,000 units Vancomycin HCl (Vancomycin 1gm) 1 gm in 250 mls @ 167 mls/hr IVPB Q12H [facility]; Protocol Last Admin: 04/29/18 07:09 Dose: 167 mls/hr Sodium Chloride (Sodium Chloride 0.45%) 1,000 mls @ 75 mls/hr IV .[id number] [facility] Last Admin: 04/28/18 16:36 Dose: 75 mls/hr Piperacillin Sod/Tazobactam Sod (Zosyn 3.375 In Ns 100ml) 100 mls @ 25 mls/hr IVPB Q12 [facility]; Protocol Last Admin: 04/29/18 10:08 Dose: 25 mls/hr Dextrose (Dextrose 5% In Water 1000 Ml) 1,000 mls @ 0 mls/hr IV .Q0M PRN; Protocol PRN Reason: Hypoglycemia Protocol Insulin Detemir (Levemir) 10 unit SC HS [facility] Last Admin: 04/28/18 21:36 Dose: 10 units Insulin Human Regular (Humulin R High) 0 units SC ACHS [facility]; Protocol Last Admin: 04/29/18 13:01 Dose: 4 units Losartan Potassium (Cozaar) 100 mg PO DAILY [facility] Last Admin: 04/29/18 10:08 Dose: 100 mg Metformin HCl (Glucophage) 1,000 mg PO BID [facility] Last Admin: 04/28/18 11:13 Dose: Not Given Pantoprazole Sodium (Protonix Ec Tab) 40 mg PO 0600 [facility] Last Admin: 04/29/18 05:27 Dose: 40 mg - Labs Labs: 04/29/18 07:30 04/29/18 07:30 PT 11.1 SECONDS (9.4-12.5) 04/26/18 19:14 INR 1.00 04/26/18 19:14 APTT 24.4 Seconds (26.9-38.3) L 04/26/18 19:14 - Constitutional Appears: Non-toxic, No Acute Distress - Head Exam Head Exam: ATRAUMATIC, NORMOCEPHALIC - Eye Exam Eye Exam: EOMI, PERRL Pupil Exam: NORMAL ACCOMODATION, PERRL - ENT Exam ENT Exam: Mucous Membranes Moist, Normal External Ear Exam, TM's Normal Bilaterally - Neck Exam Neck Exam: Full ROM, Normal Inspection - Respiratory Exam Respiratory Exam: Clear to Ausculation Bilateral, NORMAL BREATHING PATTERN. absent: Rales, Rhonchi, Wheezes - Cardiovascular Exam Cardiovascular Exam: REGULAR RHYTHM, RRR, +S1, +S2 - GI/Abdominal Exam GI & Abdominal Exam: Soft, Normal Bowel Sounds. absent: Distended, Tenderness - Extremities Exam Extremities Exam: Pedal Edema Additional comments: bilateral lower extremity swelling and pitting edema R>L that is improving RLE mildly warm, non erythematous, non tender to palpation two ulcerations on right calf that appear to be mostly healed - Neurological Exam Neurological Exam: Alert, Awake, CN II-XII Intact, Oriented x3 - Psychiatric Exam Psychiatric exam: Normal Affect, Normal Mood - Skin Skin Exam: Intact, Normal Color Assessment and Plan - Assessment and Plan (Free Text) Assessment: 68 yo female with right lower extremity swelling with ulcerations to the poste rior of the leg. The ulcerations appear to be healed at this time. Started on Vancomycin and Zosyn for antibiotic coverage. The patient has multiple medical issues that include HTN and DM Type 2. Local wound care. Duplex studies. Check ESR. For now, continue with Zosyn and Vancomycin IV. Ulceration sites do not appear infected. Possible MRA tomorrow. Stop Vancomycin for now. Continue with Zosyn. Enterobacter in wound culture from right leg ulcerations. Wound care as per Podiatry. Can switch to oral antibiotics when ready for discharge. Supportive care. Thank you for allowing me to participate in the care of the patient, we will follow with you.
[2018-04-29] MEDS: Insulin Detemir 100 units/ml Vial (Levemir) SC SCH (21:59)
[2018-04-29] MEDS: Sodium Chloride 0.45% 1,000 ML IV SCH (22:28)
--- NOTE | 2018-04-30 04:55 | CON ---
DATE: 04/29/2018 REASON FOR CONSULTATION: Chronic kidney disease, stage III, need for MRI. HISTORY OF PRESENT ILLNESS: A 68-year lady, known to me from outpatient followup. The patient presented to the emergency room with complaints of pain in her right heel. She reports she wanted to wear her brace, but she was having severe pain in her right heel, so she came to the emergency room. In the emergency room, she was found to have ulcers on her right heel. Also cellulitis of the right foot, right ankle. An MRI and MRA are being planned to evaluate for osteomyelitis and vascular disease. Hence consultation is requested since the patient has chronic kidney disease stage III. She denies any fever, chills. She denies any shortness of breath. She denies any nausea, vomiting, or diarrhea. She denies any urinary complaints. PAST MEDICAL AND SURGICAL HISTORY: NIDDM, very poorly controlled; hypertension; chronic kidney disease stage III; history of CVA x2; right hemiparesis; diabetic foot ulcer; tubal ligation; cholecystectomy. FAMILY HISTORY: Hypertension in mother, diabetes in father. SOCIAL HISTORY: No smoking, no alcohol use, no IV drug abuse. Ex-smoker, one and a half pack per day for 20 years, quit in 2010. ALLERGIES: NO KNOWN DRUG ALLERGIES. MEDICATIONS AT HOME: Rosuvastatin, metformin 1000 b.i.d., glipizide ER b.i.d., Rocaltrol, amlodipine 10 mg daily, Benicar, Lasix. REVIEW OF SYSTEMS: All systems are reviewed, pertinent positives as mentioned in the history of presenting illness, rest unremarkable. PHYSICAL EXAMINATION: GENERAL: Elderly lady lying in bed. VITAL SIGNS: Blood pressure 128/73, heart rate 75, respiratory rate 20, temperature 99.2, T-max is 99.2. HEENT: Normocephalic, atraumatic, positive pallor. NECK: Supple, no JVD. LUNGS: Bilateral equal air entry, no rales, no rhonchi. CARDIAC: S1, S2, regular rate and rhythm, no murmur, no rub. ABDOMEN: Obese, distended, soft, nontender, bowel sounds present. EXTREMITIES: Dressing on the right heel. NEUROLOGIC: R hemiparesis. INTAKE AND OUTPUT: Not charted. LABORATORY DATA: WBC 9.4, hemoglobin 9.8, hematocrit 30.9, platelets 236. Sodium 140, potassium 4, chloride 111, CO2 of 22, BUN 25, creatinine 1.6, glucose 227, calcium 9.9, phosphorus 3.6, magnesium 1.9, albumin 3.5. Wound culture, Enterobacter cloacae from the right heel. Skin culture from right calf, coagulase-negative staph. Lower extremity Dopplers, significant right distal SFA, popliteal and tibial disease. MRA recommended. Right foot x-ray, no evidence of osteomyelitis. CURRENT MEDICATIONS: Aggrenox, losartan 100 daily, Glucophage 1000 b.i.d., Glucotrol 10 b.i.d., Lasix 20 daily, Levemir, Lipitor, amlodipine 10, Protonix, Rocaltrol 0.5, half normal saline at 75, Tylenol, Zosyn 3.375 every 12 hours, vancomycin 1 g given this morning, mag sulfate 1 g given yesterday. ASSESSMENT: 1. Diabetic foot ulcer, right heel. 2. ? osteomyelitis. 3. Poorly controlled [id number] diabetes mellitus. 4. Hypertension. 5. History of transient ischemic attack. 6. Chronic kidney disease, stage III, stable. PLAN: 1. No objection to MRI/MRA, renal parameters have been stable for over two years. 2. Agree with IV fluid resuscitation. 3. Continue antihypertensives. 4. Avoid nephrotoxins. 5. Dose all antibiotics for creatinine clearance 30 to 50 mL per minute. Thank you for the courtesy of this consultation. We will follow this patient closely with you. Carolina Mccauley MD [id number]
[2018-04-30] MEDS: Pantoprazole 40 mg EC Tab PO SCH (05:31)
[2018-04-30 07:54] LABS: BASO # 0.04 K/mm3 (0.0-2.0); BASO % 0.4 % (0.0-3.0); EOS # 0.4 (0.0-0.7); EOS % 3.7 % (1.5-5.0); HEMOGLOBIN 9.5 g/dL (12.0-16.0); LYMPH # 3.5 (1.2-3.4); LYMPH % 33.8 % (22.0-35.0); MEAN CELL VOLUME 83.8 fl (80.0-105.0); MEAN CORPUSCULAR HEMOGLOBIN 26.5 pg (25.0-35.0); MEAN CORPUSCULAR HGB CONC 31.6 g/dl (31.0-37.0); MEAN PLATELET VOLUME 10.3 fl (7.0-11.0); MONO # 0.7 (0.1-0.6); MONO % 7.1 % (1.0-6.0); RBC 3.59 10^6/uL (3.5-6.1); RED CELL DISTRIBUTION WIDTH 13.7 % (11.5-14.5); WHITE BLOOD COUNT 10.2 10^3/uL (4.5-11.0)
[2018-04-30] MEDS: Insulin Reg-HIGH-Coverage SC SCH ×4 (08:00→22:15)
[2018-04-30 08:05] LABS: ALB/GLOB RATIO 0.9 (1.1-1.8); ALBUMIN 3.4 g/dL (3.0-4.8); CALCIUM 10.1 mg/dL (8.4-10.5)
[2018-04-30] MEDS ORDERED: Gadodiamide 287 MG/ML VIAL (20ML) IV ONE (08:14)
--- NOTE | 2018-04-30 09:14 | CP.PCM.PN ---
<Sung Fleming - Last Filed: 04/30/18 13:24> Subjective - Date & Time of Evaluation Date of Evaluation: 04/30/18 Time of Evaluation: 09:10 - Subjective Subjective: Podiatry progress note: Dr. Velazquez 68 y/o F patient seen and evaluated for R leg superficial wound Patient resting comfortably and in NAD. No acute events overnight. She states that the went for MRA today. Patient states that she still has the pain and cramping in her right leg. She denies any overnight nausea/vomiting/fever/shortness of breath/chest pain. Objective - Vital Signs/Intake and Output Vital Signs (last 24 hours): Temp Pulse Resp BP Pulse Ox 99.1 F 80 18 146/73 94 L 04/30/18 08:19 04/30/18 08:19 04/30/18 08:19 04/30/18 08:19 04/30/18 08:19 Intake and Output: 04/30/18 04/30/18 06:59 18:59 Intake Total 120 Balance 120 - Medications Medications: Current Medications Acetaminophen (Tylenol 325mg Tab) 650 mg PO Q6H PRN PRN Reason: Fever >100.4 F Last Admin: 04/27/18 04:25 Dose: 650 mg Acetaminophen (Tylenol 325mg Tab) 650 mg PO Q4H PRN PRN Reason: Pain, moderate (4-7) Last Admin: 04/30/18 06:14 Dose: 650 mg Amlodipine Besylate (Norvasc) 10 mg PO DAILY [facility] Last Admin: 04/29/18 10:08 Dose: 10 mg Atorvastatin Calcium (Lipitor) 20 mg PO DIN [facility] Last Admin: 04/29/18 17:11 Dose: 20 mg Calcitriol (Rocaltrol) 0.5 mcg PO DAILY [facility] Last Admin: 04/29/18 12:23 Dose: 0.5 mcg Dextrose (Dextrose 50% Inj) 0 ml IV STAT PRN; Protocol PRN Reason: Hypoglycemia Protocol Dipyridamole/Aspirin (Aggrenox 25-200 Mg) 1 ea PO DAILY [facility] Last Admin: 04/29/18 10:08 Dose: 1 ea Furosemide (Lasix) 20 mg PO DAILY [facility] Last Admin: 04/28/18 11:10 Dose: Not Given Glipizide (Glucotrol Xl) 10 mg PO BID [facility] Last Admin: 04/28/18 11:11 Dose: Not Given Heparin Sodium (Porcine) (Heparin) 5,000 units SC Q12 [facility]; Protocol Last Admin: 04/29/18 21:59 Dose: 5,000 units Sodium Chloride (Sodium Chloride 0.45%) 1,000 mls @ 75 mls/hr IV .[id number] [facility] Last Admin: 04/29/18 22:28 Dose: 75 mls/hr Piperacillin Sod/Tazobactam Sod (Zosyn 3.375 In Ns 100ml) 100 mls @ 25 mls/hr IVPB Q12 [facility]; Protocol Last Admin: 04/29/18 21:59 Dose: 25 mls/hr Dextrose (Dextrose 5% In Water 1000 Ml) 1,000 mls @ 0 mls/hr IV .Q0M PRN; Protocol PRN Reason: Hypoglycemia Protocol Insulin Detemir (Levemir) 10 unit SC HS [facility] Last Admin: 04/29/18 21:59 Dose: 10 units Insulin Human Regular (Humulin R High) 0 units SC ACHS [facility]; Protocol Last Admin: 04/29/18 21:59 Dose: 2 units Losartan Potassium (Cozaar) 100 mg PO DAILY [facility] Last Admin: 04/29/18 10:08 Dose: 100 mg Metformin HCl (Glucophage) 1,000 mg PO BID [facility] Last Admin: 04/28/18 11:13 Dose: Not Given Pantoprazole Sodium (Protonix Ec Tab) 40 mg PO 0600 [facility] Last Admin: 04/30/18 05:31 Dose: 40 mg - Labs Labs: 04/30/18 07:48 04/30/18 07:48 PT 11.1 SECONDS (9.4-12.5) 04/26/18 19:14 INR 1.00 04/26/18 19:14 APTT 24.4 Seconds (26.9-38.3) L 04/26/18 19:14 - Constitutional Appears: Well, Non-toxic, No Acute Distress - Head Exam Head Exam: ATRAUMATIC, NORMOCEPHALIC - Extremities Exam Additional comments: B/L Lower extremity exam: VASC: DP/PT non-palpable to the right, and faintly palpable to the left, Cap refill delayed to 5 seconds, Temp gradient warm to cool R > L, pitting edema noted to bilateral lower extremity R > L NEURO: grossly intact b/l. DERM: two wounds noted to the posterior aspect of the right leg, no drainage, wounds scabbed over, no malodor, no probe to bone, no signs of infection, no fluctuance noted MSK: pain on palpation the posterior right leg wounds, decreased muscle strength on the right 4/5 due to previosu CVA, MSK 5/5 on the left - Neurological Exam Neurological Exam: Alert, Awake, Oriented x3 - Psychiatric Exam Psychiatric exam: Normal Affect, Normal Mood Assessment and Plan - Assessment and Plan (Free Text) Assessment: 68 y/o F patient with R lower extremity wound, with b/l edema Plan: Patient was seen and evaluated Plan discussed with Dr. Velazquez Charts, labs and vitals reviewed; Afebrile, WBC 1o.2 Tib-Fib X-ray: no radiographic evidence of ostemyelitis EMELI/PVR; Limited study due to calcefic vessels, Significant R distal SFA, Popliteal and Tibial disease, Recommended further evaluation with MRA. Patient went for MRA today. MRA report; Pending. Placed Vascular consult for Dr. Mulligan, recommendations appreciated Wound Culture; Enterbacter cloacae Ssp Cloac. Wound dressed with xeroform, DSD Ordered multipodus boot. Patient to wear the right multipodus boot in her right LE all the times she is on bed. Will continue to follow up with patient while in house <David Velazquez - Last Filed: 04/30/18 17:42> Objective - Vital Signs/Intake and Output Vital Signs (last 24 hours): Temp Pulse Resp BP Pulse Ox 98.4 F 78 18 123/86 97 04/30/18 14:39 04/30/18 14:39 04/30/18 14:39 04/30/18 14:39 04/30/18 14:39 Intake and Output: 04/30/18 04/30/18 06:59 18:59 Intake Total 120 780 Balance 120 780 - Medications Medications: Current Medications Acetaminophen (Tylenol 325mg Tab) 650 mg PO Q6H PRN PRN Reason: Fever >100.4 F Last Admin: 04/27/18 04:25 Dose: 650 mg Acetaminophen (Tylenol 325mg Tab) 650 mg PO Q4H PRN PRN Reason: Pain, moderate (4-7) Last Admin: 04/30/18 06:14 Dose: 650 mg Acetylcysteine (Acetylcysteine 20%) 3 ml PO BID [facility] Stop: 05/02/18 18:00 Last Admin: 04/30/18 17:23 Dose: 3 ml Amlodipine Besylate (Norvasc) 10 mg PO DAILY [facility] Last Admin: 04/30/18 11:17 Dose: 10 mg Atorvastatin Calcium (Lipitor) 20 mg PO DIN [facility] Last Admin: 04/30/18 17:23 Dose: 20 mg Calcitriol (Rocaltrol) 0.5 mcg PO DAILY [facility] Last Admin: 04/30/18 11:16 Dose: 0.5 mcg Collagenase (Santyl) 0 gm TOP DAILY [facility] Dextrose (Dextrose 50% Inj) 0 ml IV STAT PRN; Protocol PRN Reason: Hypoglycemia Protocol Dipyridamole/Aspirin (Aggrenox 25-200 Mg) 1 ea PO DAILY [facility] Last Admin: 04/30/18 11:17 Dose: 1 ea Furosemide (Lasix) 20 mg PO DAILY [facility] Last Admin: 04/28/18 11:10 Dose: Not Given Glipizide (Glucotrol Xl) 10 mg PO BID [facility] Last Admin: 04/28/18 11:11 Dose: Not Given Heparin Sodium (Porcine) (Heparin) 5,000 units SC Q12 [facility]; Protocol Last Admin: 04/30/18 11:16 Dose: 5,000 units Sodium Chloride (Sodium Chloride 0.45%) 1,000 mls @ 75 mls/hr IV .[id number] [facility] Last Admin: 04/30/18 17:24 Dose: 75 mls/hr Piperacillin Sod/Tazobactam Sod (Zosyn 3.375 In Ns 100ml) 100 mls @ 25 mls/hr IVPB Q12 [facility]; Protocol Last Admin: 04/30/18 11:16 Dose: 25 mls/hr Dextrose (Dextrose 5% In Water 1000 Ml) 1,000 mls @ 0 mls/hr IV .Q0M PRN; Protocol PRN Reason: Hypoglycemia Protocol Insulin Detemir (Levemir) 10 unit SC HS [facility] Last Admin: 04/29/18 21:59 Dose: 10 units Insulin Human Regular (Humulin R High) 0 units SC ACHS [facility]; Protocol Last Admin: 02/18/19 17:10 Dose: 12 units Losartan Potassium (Cozaar) 100 mg PO DAILY [facility] Last Admin: 04/30/18 11:17 Dose: 100 mg Metformin HCl (Glucophage) 1,000 mg PO BID [facility] Last Admin: 04/28/18 11:13 Dose: Not Given Pantoprazole Sodium (Protonix Ec Tab) 40 mg PO 0600 [facility] Last Admin: 04/30/18 05:31 Dose: 40 mg - Labs Labs: 04/30/18 07:48 04/30/18 07:48 PT 11.1 SECONDS (9.4-12.5) 04/26/18 19:14 INR 1.00 04/26/18 19:14 APTT 24.4 Seconds (26.9-38.3) L 04/26/18 19:14 Attending/Attestation - Attestation I have personally seen and examined this patient.: Yes I have fully participated in the care of the patient.: Yes I have reviewed all pertinent clinical information, including history, physical exam and plan: Yes
[2018-04-30] MEDS: Piperacillin/Tazobact 3.375 gm 100 ML IVPB SCH ×2 (11:16→22:15)
[2018-04-30] MEDS: Aspirin-Dipyridamole 200-25 mg ER Cap PO SCH (11:17)
--- NOTE | 2018-04-30 13:04 | MRI ---
Date of service: 04/30/2018 PROCEDURE: MR angiography of the lower extremities with and without contrast HISTORY: PVD with ischemic ulcers right posterior calf COMPARISON: TECHNIQUE: MR angiography of the abdominal aorta and lower extremities was performed with and without IV contrast. 20 cc of Omniscan were injected FINDINGS: The aorta is unremarkable and smooth in contour. The iliac and common femoral arteries are widely patent. Mild short-segment stenoses can be seen in the right SFA proximally and distally. The left SFA is unremarkable. There is single vessel runoff to the right ankle via the anterior tibial. The peroneal trunk and the peroneal and posterior tibial artery are only segmentally visualized. On the left side the anterior tibial and peroneal are patent. The posterior tibial is occluded. IMPRESSION: As above
--- NOTE | 2018-04-30 13:28 | MRI ---
Date of service: 04/29/2018 PROCEDURE: MRI of the right ankle without contrast HISTORY: r/o osteo of right distal fibula COMPARISON: TECHNIQUE: MRI of the right ankle was performed in multiple planes using multiple pulse sequences. FINDINGS: There is a large amount of subcutaneous and a edema and swelling especially over the dorsum of the foot. This is consistent with cellulitis or passive edema. There is no marrow edema seen to suggest osteomyelitis. The ankle ligaments and tendons are unremarkable. The report concurs with the preliminary [facility] report IMPRESSION: No evidence of osteomyelitis
--- NOTE | 2018-04-30 13:29 | CP.PCM.PCO ---
Physician Communication Note - Physician Communication Note Physician Communication Note: Per IR, possible arteriogram tomorrow.
[2018-04-30] MEDS: Acetylcysteine 20% Inhal Soln (4ml) PO SCH ×2 (14:24→17:23)
--- NOTE | 2018-04-30 15:37 | CP.PCM.PN ---
<Cesario Kirk - Last Filed: 04/30/18 16:58> Subjective - Date & Time of Evaluation Date of Evaluation: 04/30/18 Time of Evaluation: 15:34 - Subjective Subjective: Cesario Kirk, PGY-1, Internal Medicine Progress Note for Dr. Anthony Patient was seen and evaluated at bedside. Patient had no acute overnight events except for urinary incontinence. Upon evaluation this morning, patient reported right leg pain, but denied any other symptoms including headache, fever, chest pain, shortness of breath, nausea, vomiting, constipation, diarrhea, dysuria, hematuria. 12-point ROS was unremarkable except for what was mentioned above. Objective - Vital Signs/Intake and Output Vital Signs (last 24 hours): Temp Pulse Resp BP Pulse Ox 98.4 F 78 18 123/86 97 04/30/18 14:39 04/30/18 14:39 04/30/18 14:39 04/30/18 14:39 04/30/18 14:39 Intake and Output: 04/30/18 04/30/18 06:59 18:59 Intake Total 120 780 Balance 120 780 - Medications Medications: Current Medications Acetaminophen (Tylenol 325mg Tab) 650 mg PO Q6H PRN PRN Reason: Fever >100.4 F Last Admin: 04/27/18 04:25 Dose: 650 mg Acetaminophen (Tylenol 325mg Tab) 650 mg PO Q4H PRN PRN Reason: Pain, moderate (4-7) Last Admin: 04/30/18 06:14 Dose: 650 mg Acetylcysteine (Acetylcysteine 20%) 3 ml PO BID [facility] Stop: 05/02/18 18:00 Last Admin: 04/30/18 14:24 Dose: 3 ml Amlodipine Besylate (Norvasc) 10 mg PO DAILY [facility] Last Admin: 04/30/18 11:17 Dose: 10 mg Atorvastatin Calcium (Lipitor) 20 mg PO DIN [facility] Last Admin: 04/29/18 17:11 Dose: 20 mg Calcitriol (Rocaltrol) 0.5 mcg PO DAILY [facility] Last Admin: 04/30/18 11:16 Dose: 0.5 mcg Dextrose (Dextrose 50% Inj) 0 ml IV STAT PRN; Protocol PRN Reason: Hypoglycemia Protocol Dipyridamole/Aspirin (Aggrenox 25-200 Mg) 1 ea PO DAILY [facility] Last Admin: 04/30/18 11:17 Dose: 1 ea Furosemide (Lasix) 20 mg PO DAILY [facility] Last Admin: 04/28/18 11:10 Dose: Not Given Glipizide (Glucotrol Xl) 10 mg PO BID [facility] Last Admin: 04/28/18 11:11 Dose: Not Given Heparin Sodium (Porcine) (Heparin) 5,000 units SC Q12 [facility]; Protocol Last Admin: 04/30/18 11:16 Dose: 5,000 units Sodium Chloride (Sodium Chloride 0.45%) 1,000 mls @ 75 mls/hr IV .[id number] [facility] Last Admin: 04/29/18 22:28 Dose: 75 mls/hr Piperacillin Sod/Tazobactam Sod (Zosyn 3.375 In Ns 100ml) 100 mls @ 25 mls/hr IVPB Q12 [facility]; Protocol Last Admin: 04/30/18 11:16 Dose: 25 mls/hr Dextrose (Dextrose 5% In Water 1000 Ml) 1,000 mls @ 0 mls/hr IV .Q0M PRN; Protocol PRN Reason: Hypoglycemia Protocol Insulin Detemir (Levemir) 10 unit SC HS [facility] Last Admin: 04/29/18 21:59 Dose: 10 units Insulin Human Regular (Humulin R High) 0 units SC ACHS [facility]; Protocol Last Admin: 04/30/18 11:17 Dose: 2 units Losartan Potassium (Cozaar) 100 mg PO DAILY [facility] Last Admin: 04/30/18 11:17 Dose: 100 mg Metformin HCl (Glucophage) 1,000 mg PO BID [facility] Last Admin: 04/28/18 11:13 Dose: Not Given Pantoprazole Sodium (Protonix Ec Tab) 40 mg PO 0600 [facility] Last Admin: 04/30/18 05:31 Dose: 40 mg - Labs Labs: 04/30/18 07:48 04/30/18 07:48 PT 11.1 SECONDS (9.4-12.5) 04/26/18 19:14 INR 1.00 04/26/18 19:14 APTT 24.4 Seconds (26.9-38.3) L 04/26/18 19:14 - Constitutional Appears: Well, Non-toxic, No Acute Distress - Head Exam Head Exam: ATRAUMATIC, NORMAL INSPECTION, NORMOCEPHALIC - Eye Exam Eye Exam: EOMI, PERRL - ENT Exam ENT Exam: Mucous Membranes Moist - Neck Exam Neck Exam: Full ROM - Respiratory Exam Respiratory Exam: Clear to Ausculation Bilateral, NORMAL BREATHING PATTERN - Cardiovascular Exam Cardiovascular Exam: REGULAR RHYTHM, RRR Additional comments: DP and PT non-palpable to the right, and faintly palpable to the left, CFT delayed to 5 seconds, TG warm to cool R > L, pitting edema noted to bilateral lower extremity R > L - GI/Abdominal Exam GI & Abdominal Exam: Soft, Normal Bowel Sounds. absent: Tenderness - Extremities Exam Extremities Exam: Full ROM Additional comments: two wounds noted to the posterior aspect of the right leg, no drainage, wounds scabbed over, no malodor, no fluctuance - Neurological Exam Neurological Exam: Alert, Awake, CN II-XII Intact, Oriented x3 - Skin Skin Exam: Dry, Intact Assessment and Plan - Assessment and Plan (Free Text) Assessment: 68 year old female with past medical history of hypertension, type II diabetes mellitus, CKD, CVA, and TIA presented with lower extremity swelling and pain starting a few weeks ago. Patient was admitted for right lower extremity wound with rule out of osteomyelitis. Plan: Right foot wound 04/14 to cellulitis -Ankle X ray 04/27: mild focal periosteal thickening of lateral aspect of distal right fibula without cortical erosion. Adjacent soft tissue swelling and hetero genous density likely represents soft tissue inflammatory or infectious process -Ankle MRI: large amount of subcutaneous and edema over dorsum of foot. This is consistent with cellulitis of passive edema. There is no marrow edema suggestive of osteomyelitis. -Wound culture 04/27: Enterobacter Cloacae Ssp Cloac. Sensitive to all species but cefazolin. -Skin culture of right calf on 04/26: coagulase negative staphylococcus -Blood culture 04/26: negative for 3 days -Continue with zosyn day 3. Stopped vancomycin. Peripheral Vascular disease -Extremity US 04/27: significant right distal SFA, popliteal, and tibial disease. -Wound culture 04/27: Enterobacter Cloacae Ssp Cloac. Sensitive to all species but cefazolin. -Skin culture of right calf on 04/26: coaguloase negative staphylococcus -Blood culture 04/26: negative for 3 days -MRA 04/30: short segment stenoses seen in right SFA proximally and distally. Left SFA is unremarkable. Single vessel runoff to the right ankle via the anterior tibial. The peroneal trunk and the peroneal and posterior tibial artery are only segmentally visualized. -EMELI: limited study due to calcific vessels, significant R distal SFA, popliteal and tibial disease -Wound cleansed with saline and dressed with xeroform and DSD -Patient for arteriogram tomorrow for further evaluation. Hypertension -Continue with norvasc 10 mg daily, cozaar 100 mg daily Type II Diabetes Mellitus -Random glucose: 168 -HgbA1c: 11.3 -Continue with High SSI and started levemir 10 mg HS -Diabetic education ordered for patient to be educated regarding self insulin administration -Held glipizide, metformin due to patient's renal status MATHEW on CKD Stage 3B -Cr: 1.6 with baseline of 1.5 -Hold metformin, glipizide, and lasix due to nephrotoxic effects -Continue with NS at 75cc/hr -Continue with calcitriol History of CVA -Continue with aspirin/dipyridamole, and lipitor GI prophylaxis: protonix 40 mg daily DVT prophylaxis: heparin 5000 U Q12 Patient plan discussed with attending. <Bud Anthony - Last Filed: 04/30/18 17:14> Objective - Vital Signs/Intake and Output Vital Signs (last 24 hours): Temp Pulse Resp BP Pulse Ox 98.4 F 78 18 123/86 97 04/30/18 14:39 04/30/18 14:39 04/30/18 14:39 04/30/18 14:39 04/30/18 14:39 Intake and Output: 04/30/18 04/30/18 06:59 18:59 Intake Total 120 780 Balance 120 780 - Medications Medications: Current Medications Acetaminophen (Tylenol 325mg Tab) 650 mg PO Q6H PRN PRN Reason: Fever >100.4 F Last Admin: 04/27/18 04:25 Dose: 650 mg Acetaminophen (Tylenol 325mg Tab) 650 mg PO Q4H PRN PRN Reason: Pain, moderate (4-7) Last Admin: 04/30/18 06:14 Dose: 650 mg Acetylcysteine (Acetylcysteine 20%) 3 ml PO BID [facility] Stop: 05/02/18 18:00 Last Admin: 04/30/18 14:24 Dose: 3 ml Amlodipine Besylate (Norvasc) 10 mg PO DAILY [facility] Last Admin: 04/30/18 11:17 Dose: 10 mg Atorvastatin Calcium (Lipitor) 20 mg PO DIN [facility] Last Admin: 04/29/18 17:11 Dose: 20 mg Calcitriol (Rocaltrol) 0.5 mcg PO DAILY [facility] Last Admin: 04/30/18 11:16 Dose: 0.5 mcg Collagenase (Santyl) 0 gm TOP DAILY [facility] Dextrose (Dextrose 50% Inj) 0 ml IV STAT PRN; Protocol PRN Reason: Hypoglycemia Protocol Dipyridamole/Aspirin (Aggrenox 25-200 Mg) 1 ea PO DAILY [facility] Last Admin: 04/30/18 11:17 Dose: 1 ea Furosemide (Lasix) 20 mg PO DAILY [facility] Last Admin: 04/28/18 11:10 Dose: Not Given Glipizide (Glucotrol Xl) 10 mg PO BID [facility] Last Admin: 04/28/18 11:11 Dose: Not Given Heparin Sodium (Porcine) (Heparin) 5,000 units SC Q12 [facility]; Protocol Last Admin: 04/30/18 11:16 Dose: 5,000 units Sodium Chloride (Sodium Chloride 0.45%) 1,000 mls @ 75 mls/hr IV .[id number] [facility] Last Admin: 04/29/18 22:28 Dose: 75 mls/hr Piperacillin Sod/Tazobactam Sod (Zosyn 3.375 In Ns 100ml) 100 mls @ 25 mls/hr IVPB Q12 [facility]; Protocol Last Admin: 04/30/18 11:16 Dose: 25 mls/hr Dextrose (Dextrose 5% In Water 1000 Ml) 1,000 mls @ 0 mls/hr IV .Q0M PRN; Protocol PRN Reason: Hypoglycemia Protocol Insulin Detemir (Levemir) 10 unit SC HS [facility] Last Admin: 04/29/18 21:59 Dose: 10 units Insulin Human Regular (Humulin R High) 0 units SC ACHS [facility]; Protocol Last Admin: 04/30/18 11:17 Dose: 2 units Losartan Potassium (Cozaar) 100 mg PO DAILY [facility] Last Admin: 04/30/18 11:17 Dose: 100 mg Metformin HCl (Glucophage) 1,000 mg PO BID [facility] Last Admin: 04/28/18 11:13 Dose: Not Given Pantoprazole Sodium (Protonix Ec Tab) 40 mg PO 0600 [facility] Last Admin: 04/30/18 05:31 Dose: 40 mg - Labs Labs: 04/30/18 07:48 04/30/18 07:48 PT 11.1 SECONDS (9.4-12.5) 04/26/18 19:14 INR 1.00 04/26/18 19:14 APTT 24.4 Seconds (26.9-38.3) L 04/26/18 19:14 Attending/Attestation - Attestation I have personally seen and examined this patient.: Yes I have fully participated in the care of the patient.: Yes I have reviewed all pertinent clinical information, including history, physical exam and plan: Yes Notes (Text): 04/30/18 17:11 68 year old female with past medical history of hypertension, diabetes, CKD and CVA who presented with RLE ulcer and edema. She is on iv antibiotics. Wound culture is growing enterobacter cloacae. ID and podiatry are following. Xray showed mild focal periosteal thickening at the lateral aspect of the distal right fibula with adjacent soft tissue swelling. MRI is negative for osteomyelitis. Dopplers showed significant right distal SFA, popliteal and/or tibial disease. MRA was done today; plan for possible arteriogram tomorrow. Continue with iv fluids for acute on chronic kidney disease. Nephrology is following. Hold metformin and glipizide for now. A1c is 11 and patient is started on levemir. Bud Anthony MD Hospitalist.
[2018-04-30] MEDS: Sodium Chloride 0.45% 1,000 ML IV SCH ×2 (17:24→22:02)
--- NOTE | 2018-04-30 18:05 | CP.PCM.PN ---
Subjective - Date & Time of Evaluation Date of Evaluation: 04/30/18 Time of Evaluation: 16:15 - Subjective Subjective: Infectious Disease Follow Up: April 30, 2018 68 yo female with presentation of lower extremity swelling in the right initially that started several weeks ago. The patient is having difficulties with ambulation especially in the right leg. Her PMHx includes HTN, T2DM, CKD, CVA, TIA. Two ulcerations on the posterior right leg. Patient on the whole feels very comfortable. Wounds appears to be healing /healed. Enterobacter in leg ulcers. No leukocytosis. ESR of 122. CKD Stage II-III. Elevated Hgb A1c of greater than 11. Currently on Zosyn. Objective - Vital Signs/Intake and Output Vital Signs (last 24 hours): Temp Pulse Resp BP Pulse Ox 98.4 F 78 18 123/86 97 04/30/18 14:39 04/30/18 14:39 04/30/18 14:39 04/30/18 14:39 04/30/18 14:39 Intake and Output: 04/30/18 04/30/18 06:59 18:59 Intake Total 120 780 Balance 120 780 - Medications Medications: Current Medications Acetaminophen (Tylenol 325mg Tab) 650 mg PO Q6H PRN PRN Reason: Fever >100.4 F Last Admin: 04/27/18 04:25 Dose: 650 mg Acetaminophen (Tylenol 325mg Tab) 650 mg PO Q4H PRN PRN Reason: Pain, moderate (4-7) Last Admin: 04/30/18 06:14 Dose: 650 mg Acetylcysteine (Acetylcysteine 20%) 3 ml PO BID [facility] Stop: 05/02/18 18:00 Last Admin: 04/30/18 17:23 Dose: 3 ml Amlodipine Besylate (Norvasc) 10 mg PO DAILY [facility] Last Admin: 04/30/18 11:17 Dose: 10 mg Atorvastatin Calcium (Lipitor) 20 mg PO DIN [facility] Last Admin: 04/30/18 17:23 Dose: 20 mg Calcitriol (Rocaltrol) 0.5 mcg PO DAILY [facility] Last Admin: 04/30/18 11:16 Dose: 0.5 mcg Collagenase (Santyl) 0 gm TOP DAILY [facility] Dextrose (Dextrose 50% Inj) 0 ml IV STAT PRN; Protocol PRN Reason: Hypoglycemia Protocol Dipyridamole/Aspirin (Aggrenox 25-200 Mg) 1 ea PO DAILY [facility] Last Admin: 04/30/18 11:17 Dose: 1 ea Furosemide (Lasix) 20 mg PO DAILY [facility] Last Admin: 04/28/18 11:10 Dose: Not Given Glipizide (Glucotrol Xl) 10 mg PO BID [facility] Last Admin: 04/28/18 11:11 Dose: Not Given Heparin Sodium (Porcine) (Heparin) 5,000 units SC Q12 [facility]; Protocol Last Admin: 04/30/18 11:16 Dose: 5,000 units Sodium Chloride (Sodium Chloride 0.45%) 1,000 mls @ 75 mls/hr IV .[id number] [facility] Last Admin: 04/30/18 17:24 Dose: 75 mls/hr Piperacillin Sod/Tazobactam Sod (Zosyn 3.375 In Ns 100ml) 100 mls @ 25 mls/hr IVPB Q12 [facility]; Protocol Last Admin: 04/30/18 11:16 Dose: 25 mls/hr Dextrose (Dextrose 5% In Water 1000 Ml) 1,000 mls @ 0 mls/hr IV .Q0M PRN; Protocol PRN Reason: Hypoglycemia Protocol Insulin Detemir (Levemir) 10 unit SC HS [facility] Last Admin: 04/29/18 21:59 Dose: 10 units Insulin Human Regular (Humulin R High) 0 units SC ACHS [facility]; Protocol Last Admin: 04/30/18 17:10 Dose: 12 units Losartan Potassium (Cozaar) 100 mg PO DAILY [facility] Last Admin: 04/30/18 11:17 Dose: 100 mg Metformin HCl (Glucophage) 1,000 mg PO BID [facility] Last Admin: 04/28/18 11:13 Dose: Not Given Pantoprazole Sodium (Protonix Ec Tab) 40 mg PO 0600 [facility] Last Admin: 04/30/18 05:31 Dose: 40 mg - Labs Labs: 04/30/18 07:48 04/30/18 07:48 PT 11.1 SECONDS (9.4-12.5) 04/26/18 19:14 INR 1.00 04/26/18 19:14 APTT 24.4 Seconds (26.9-38.3) L 04/26/18 19:14 - Constitutional Appears: Non-toxic, No Acute Distress, Chronically Ill - Head Exam Head Exam: ATRAUMATIC, NORMOCEPHALIC - Eye Exam Eye Exam: EOMI, PERRL Pupil Exam: NORMAL ACCOMODATION, PERRL - ENT Exam ENT Exam: Mucous Membranes Moist, Normal External Ear Exam, TM's Normal Bilaterally - Neck Exam Neck Exam: Full ROM, Normal Inspection - Respiratory Exam Respiratory Exam: Clear to Ausculation Bilateral, NORMAL BREATHING PATTERN. absent: Rales, Rhonchi, Wheezes - Cardiovascular Exam Cardiovascular Exam: REGULAR RHYTHM, RRR, +S1, +S2 - GI/Abdominal Exam GI & Abdominal Exam: Soft, Normal Bowel Sounds. absent: Distended, Tenderness - Extremities Exam Extremities Exam: Pedal Edema Additional comments: bilateral lower extremity swelling and pitting edema R>L that is improving RLE mildly warm, non erythematous, non tender to palpation two ulcerations on right calf that appear to be mostly healed - Neurological Exam Neurological Exam: Alert, Awake, CN II-XII Intact, Oriented x3 - Psychiatric Exam Psychiatric exam: Normal Affect, Normal Mood - Skin Skin Exam: Intact, Normal Color Assessment and Plan - Assessment and Plan (Free Text) Assessment: 68 yo female with right lower extremity swelling with ulcerations to the posterior of the leg. The ulcerations appear to be healed at this time. Started on Vancomycin and Zosyn for antibiotic coverage. The patient has multiple medical issues that include HTN and DM Type 2. Local wound care. Duplex studies. Check ESR. For now, continue with Zosyn IV. Ulceration sites do not appear infected. Possible MRA tomorrow. Stopped Vancomycin. Continued on Zosyn. Enterobacter in wound culture from right leg ulcerations. Wound care as per Podiatry. Can switch to oral antibiotics when ready for discharge... choice would be Ciprofloxacin 250mg BID for 10 days give Enterobacter. Supportive care. Thank you for allowing me to participate in the care of the patient, we will follow with you.
--- NOTE | 2018-04-30 20:22 | PN ---
DATE: 04/30/2018 SUBJECTIVE: The patient is seen lying in bed. She is awake. She is alert. She is comfortable. She reports that she went out for an MRI this morning. PHYSICAL EXAMINATION: GENERAL: Obese elderly lady lying in bed. VITAL SIGNS: Blood pressure 123/86, heart rate 78, respiratory rate 18, temperature 98.4. HEENT: Normocephalic, atraumatic, positive pallor. NECK: Supple, no JVD. LUNGS: Bilateral equal air equal air entry, no rales, no rhonchi. CARDIAC: S1 and S2, regular rate AND rhythm, no murmur, no murmur, no rub. ABDOMEN: Obese, distended, soft, nontender, bowel sounds present. EXTREMITIES: Dressing of the right ankle. INTAKE AND OUTPUT: Not charted. LABORATORY DATA: WBC 10, hemoglobin 9.5, hematocrit 30, platelets 283. Sodium 138, potassium 4.2, chloride 110, CO2 of 23, BUN 26, creatinine 1.6, glucose 224, calcium 10.1, phosphorus 3.9, magnesium 1.6, albumin 3.4, corrected calcium is 10.5. Wound culture Enterobacter cloacae. MRA of the lower extremities showing mild short segment stenosis in the right SFA proximally and distally, left SFA is unremarkable, single-vessel runoff of the right ankle via anterior tibial. CURRENT MEDICATIONS: Mucomyst, Aggrenox, losartan 100, Glucophage, Glucotrol on hold, Lasix 20 on hold, Levemir, Lipitor, amlodipine 10, Protonix, Rocaltrol 0.5, half normal saline at 75, Zosyn 3.375 every 12 hours. Vancomycin 1 g given yesterday. ASSESSMENT: 1. Diabetic foot ulcer, right heel. 2. Coronary artery disease, for angiogram tomorrow. 3. Poorly controlled diabetes. 4. Stable chronic kidney disease, stage III. 5. Hypertension. 6. History of cerebrovascular accident, right hemiparesis. 7. Anemia. PLAN: 1. Dose all antibiotics for creatinine clearance of 30 to 50 mL/minute. 2. Avoid nephrotoxins. 3. Agree with Mucomyst, hydration prior to angiogram. 4. Agree with holding metformin. 5. Antibiotics as per ID recommendations. 6. Monitor daily labs. Carolina Mccauley MD [facility] # [id number]
[2018-04-30] MEDS: Insulin Detemir 100 units/ml Vial (Levemir) SC SCH (22:15)
[2018-05-01] MEDS: Pantoprazole 40 mg EC Tab PO SCH (05:44)
[2018-05-01] MEDS: Acetylcysteine 20% Inhal Soln (4ml) PO SCH ×3 (06:48→17:56)
[2018-05-01] MEDS ORDERED: Lidocaine 2% Inj (20ml) ONE (06:57)
[2018-05-01] MEDS ORDERED: Iodixanol 320 mg/ml 150 ml Bottle IV ONE (06:57)
[2018-05-01] MEDS ORDERED: Iodixanol 320 MG/ML 200 ML BOTTLE IV ONE (06:58)
[2018-05-01 07:38] LABS: CALCIUM 10.1 mg/dL (8.4-10.5)
[2018-05-01] MEDS: Insulin Reg-HIGH-Coverage SC SCH ×4 (08:00→22:14)
[2018-05-01] MEDS ORDERED: Midazolam 2 MG/2 ML VIAL ONE ×2 (08:20→08:34)
[2018-05-01] MEDS ORDERED: Nitroglycerin 50mg in D5W 50 MG/250 ML BOTTLE IV ONE (08:31)
[2018-05-01 09:07] LABS: BASO # 0.05 K/mm3 (0.0-2.0); BASO % 0.5 % (0.0-3.0); EOS # 0.5 (0.0-0.7); EOS % 5.3 % (1.5-5.0); HEMOGLOBIN 9.4 g/dL (12.0-16.0); LYMPH # 3.4 (1.2-3.4); LYMPH % 36.2 % (22.0-35.0); MEAN CELL VOLUME 84.6 fl (80.0-105.0); MEAN CORPUSCULAR HEMOGLOBIN 26.4 pg (25.0-35.0); MEAN CORPUSCULAR HGB CONC 31.2 g/dl (31.0-37.0); MEAN PLATELET VOLUME 10.1 fl (7.0-11.0); MONO # 0.7 (0.1-0.6); RBC 3.56 10^6/uL (3.5-6.1); RED CELL DISTRIBUTION WIDTH 13.8 % (11.5-14.5); WHITE BLOOD COUNT 9.5 10^3/uL (4.5-11.0)
[2018-05-01] MEDS: Sodium Chloride 0.45% 1,000 ML IV SCH (10:45)
[2018-05-01] MEDS: Collagenase 250 Units/gm Ointment(30 gm) TOP SCH (12:25)
--- NOTE | 2018-05-01 12:25 | CP.PCM.PN ---
<Sung Fleming - Last Filed: 05/01/18 12:19> Subjective - Date & Time of Evaluation Date of Evaluation: 05/01/18 Time of Evaluation: 12:19 - Subjective Subjective: Podiatry progress note: Dr. Velazquez 68 y/o F patient seen and evaluated for R leg superficial wound Patient resting comfortably and in NAD. No acute events overnight. She states that the went for angio today. Patient states that she still has the pain and cramping in her right leg but today it's less. She denies any overnight nausea/vomiting/fever/shortness of breath/chest pain. Objective - Vital Signs/Intake and Output Vital Signs (last 24 hours): Temp Pulse Resp BP Pulse Ox 98.1 F 66 17 146/64 95 05/01/18 12:00 05/01/18 12:00 05/01/18 12:00 05/01/18 12:00 05/01/18 06:00 Intake and Output: 05/01/18 05/01/18 06:59 18:59 Intake Total 800 Balance 800 - Medications Medications: Current Medications Acetaminophen (Tylenol 325mg Tab) 650 mg PO Q6H PRN PRN Reason: Fever >100.4 F Last Admin: 04/27/18 04:25 Dose: 650 mg Acetaminophen (Tylenol 325mg Tab) 650 mg PO Q4H PRN PRN Reason: Pain, moderate (4-7) Last Admin: 04/30/18 06:14 Dose: 650 mg Acetylcysteine (Acetylcysteine 20%) 3 ml PO BID [facility] Stop: 05/02/18 18:00 Last Admin: 05/01/18 10:32 Dose: Not Given Amlodipine Besylate (Norvasc) 10 mg PO DAILY [facility] Last Admin: 04/30/18 11:17 Dose: 10 mg Atorvastatin Calcium (Lipitor) 20 mg PO DIN [facility] Last Admin: 04/30/18 17:23 Dose: 20 mg Calcitriol (Rocaltrol) 0.5 mcg PO DAILY [facility] Last Admin: 04/30/18 11:16 Dose: 0.5 mcg Collagenase (Santyl) 0 gm TOP DAILY [facility] Dextrose (Dextrose 50% Inj) 0 ml IV STAT PRN; Protocol PRN Reason: Hypoglycemia Protocol Dipyridamole/Aspirin (Aggrenox 25-200 Mg) 1 ea PO DAILY [facility] Last Admin: 04/30/18 11:17 Dose: 1 ea Furosemide (Lasix) 20 mg PO DAILY [facility] Last Admin: 04/28/18 11:10 Dose: Not Given Glipizide (Glucotrol Xl) 10 mg PO BID [facility] Last Admin: 04/28/18 11:11 Dose: Not Given Heparin Sodium (Porcine) (Heparin) 5,000 units SC Q12 [facility]; Protocol Last Admin: 04/30/18 22:14 Dose: 5,000 units Sodium Chloride (Sodium Chloride 0.45%) 1,000 mls @ 75 mls/hr IV .[id number] [facility] Last Admin: 04/30/18 22:02 Dose: 75 mls/hr Piperacillin Sod/Tazobactam Sod (Zosyn 3.375 In Ns 100ml) 100 mls @ 25 mls/hr IVPB Q12 [facility]; Protocol Last Admin: 04/30/18 22:15 Dose: 25 mls/hr Dextrose (Dextrose 5% In Water 1000 Ml) 1,000 mls @ 0 mls/hr IV .Q0M PRN; Protocol PRN Reason: Hypoglycemia Protocol Insulin Detemir (Levemir) 10 unit SC HS [facility] Last Admin: 04/30/18 22:15 Dose: 10 units Insulin Human Regular (Humulin R High) 0 units SC ACHS [facility]; Protocol Last Admin: 05/01/18 08:00 Dose: Not Given Losartan Potassium (Cozaar) 100 mg PO DAILY [facility] Last Admin: 04/30/18 11:17 Dose: 100 mg Metformin HCl (Glucophage) 1,000 mg PO BID [facility] Last Admin: 04/28/18 11:13 Dose: Not Given Ondansetron HCl (Zofran Inj) 4 mg IVP ONCE PRN PRN Reason: Nausea/Vomiting Pantoprazole Sodium (Protonix Ec Tab) 40 mg PO 0600 [facility] Last Admin: 05/01/18 05:44 Dose: 40 mg - Labs Labs: 05/01/18 08:50 05/01/18 07:00 PT 11.1 SECONDS (9.4-12.5) 04/26/18 19:14 INR 1.00 04/26/18 19:14 APTT 24.4 Seconds (26.9-38.3) L 04/26/18 19:14 - Constitutional Appears: Well, Non-toxic, No Acute Distress - Head Exam Head Exam: ATRAUMATIC, NORMOCEPHALIC - Extremities Exam Additional comments: B/L Lower extremity exam: VASC: DP/PT non-palpable to the right, and faintly palpable to the left. Using Doppler Audible monophasic DP/PT on the left and DP of the R and non audiable PT on the R, Cap refill delayed to 5 seconds on the R side and almost 4 sec on the left side, Temp gradient warm to cool b/l, pitting edema noted to bilateral lower extremity R > L NEURO: grossly intact b/l. DERM: Two wounds noted to the posterior aspect of the right leg, no drainage, wounds scabbed over, no malodor, no probe to bone, no signs of infection, no fluctuance noted MSK: Pain on palpation the posterior right leg wounds, decreased muscle strength on the right 4/5 due to previosu CVA, MSK 5/5 on the left. - Neurological Exam Neurological Exam: Alert, Awake, Oriented x3 - Psychiatric Exam Psychiatric exam: Normal Affect, Normal Mood Assessment and Plan - Assessment and Plan (Free Text) Assessment: 68 y/o F patient with R lower extremity wound, with b/l edema R>L Plan: Patient was seen and evaluated Plan discussed with Dr. Velazquez Charts, labs and vitals reviewed; Afebrile, WBC 9.5 Tib-Fib X-ray: no radiographic evidence of ostemyelitis EMELI/PVR; Limited study due to calcefic vessels, Significant R distal SFA, Popliteal and Tibial disease, Recommended further evaluation with MRA. MRA report; The aorta is unremarkable and smooth in contour. The iliac and common femoral arteries are widely patent. Mild short-segment stenoses can be seen in the right SFA proximally and distally. The left SFA is unremarkable. Th ere is single vessel runoff to the right ankle via the anterior tibial. The peroneal trunk and the peroneal and posterior tibial artery are only segmentally visualized. On the left side the anterior tibial and peroneal are patent. The posterior tibial is occluded. Patient went for angio today. Placed Vascular consult for Dr. Mulligan, recommendations appreciated Wound Culture; Enterbacter cloacae Ssp Cloac. Wound dressed with xeroform, DSD Ordered Santyl to be added to the dressing starting tomorrow Patient to wear the right multipodus boot in her right LE all the times she is on bed. Will continue to follow up with patient while in house <Maikel Velazquezjana - Last Filed: 05/02/18 07:11> Objective - Vital Signs/Intake and Output Vital Signs (last 24 hours): Temp Pulse Resp BP Pulse Ox 98.6 F 66 20 140/52 L 99 05/01/18 22:48 05/01/18 15:10 05/01/18 22:48 05/01/18 15:10 05/01/18 22:48 Intake and Output: 05/02/18 05/02/18 06:59 18:59 Intake Total 180 Balance 180 - Medications Medications: Current Medications Acetaminophen (Tylenol 325mg Tab) 650 mg PO Q6H PRN PRN Reason: Fever >100.4 F Last Admin: 04/27/18 04:25 Dose: 650 mg Acetaminophen (Tylenol 325mg Tab) 650 mg PO Q4H PRN PRN Reason: Pain, moderate (4-7) Last Admin: 04/30/18 06:14 Dose: 650 mg Acetylcysteine (Acetylcysteine 20%) 3 ml PO BID [facility] Stop: 05/02/18 18:00 Last Admin: 05/01/18 17:56 Dose: 3 ml Amlodipine Besylate (Norvasc) 10 mg PO DAILY [facility] Last Admin: 05/01/18 12:24 Dose: 10 mg Atorvastatin Calcium (Lipitor) 20 mg PO DIN [facility] Last Admin: 05/01/18 17:56 Dose: 20 mg Calcitriol (Rocaltrol) 0.5 mcg PO DAILY [facility] Last Admin: 05/01/18 12:24 Dose: 0.5 mcg Collagenase (Santyl) 0 gm TOP DAILY [facility] Last Admin: 05/01/18 12:25 Dose: Not Given Dextrose (Dextrose 50% Inj) 0 ml IV STAT PRN; Protocol PRN Reason: Hypoglycemia Protocol Dipyridamole/Aspirin (Aggrenox 25-200 Mg) 1 ea PO DAILY [facility] Last Admin: 05/01/18 12:28 Dose: 1 ea Furosemide (Lasix) 20 mg PO DAILY [facility] Last Admin: 04/28/18 11:10 Dose: Not Given Glipizide (Glucotrol Xl) 10 mg PO BID [facility] Last Admin: 04/28/18 11:11 Dose: Not Given Heparin Sodium (Porcine) (Heparin) 5,000 units SC Q12 [facility]; Protocol Last Admin: 04/30/18 22:14 Dose: 5,000 units Sodium Chloride (Sodium Chloride 0.45%) 1,000 mls @ 75 mls/hr IV .[id number] [facility] Last Admin: 05/02/18 00:15 Dose: 75 mls/hr Piperacillin Sod/Tazobactam Sod (Zosyn 3.375 In Ns 100ml) 100 mls @ 25 mls/hr IVPB Q12 [facility]; Protocol Last Admin: 05/02/18 00:14 Dose: 25 mls/hr Dextrose (Dextrose 5% In Water 1000 Ml) 1,000 mls @ 0 mls/hr IV .Q0M PRN; Protocol PRN Reason: Hypoglycemia Protocol Insulin Detemir (Levemir) 10 unit SC HS [facility] Last Admin: 05/02/18 00:15 Dose: 10 units Insulin Human Regular (Humulin R High) 0 units SC ACHS [facility]; Protocol Last Admin: 05/01/18 22:14 Dose: Not Given Losartan Potassium (Cozaar) 100 mg PO DAILY [facility] Last Admin: 05/01/18 12:27 Dose: 100 mg Metformin HCl (Glucophage) 1,000 mg PO BID [facility] Last Admin: 04/28/18 11:13 Dose: Not Given Ondansetron HCl (Zofran Inj) 4 mg IVP ONCE PRN PRN Reason: Nausea/Vomiting Pantoprazole Sodium (Protonix Ec Tab) 40 mg PO 0600 [facility] Last Admin: 05/02/18 05:33 Dose: 40 mg - Labs Labs: 05/02/18 06:10 05/01/18 07:00 PT 11.1 SECONDS (9.4-12.5) 04/26/18 19:14 INR 1.00 04/26/18 19:14 APTT 24.4 Seconds (26.9-38.3) L 04/26/18 19:14 Attending/Attestation - Attestation I have personally seen and examined this patient.: Yes I have fully participated in the care of the patient.: Yes I have reviewed all pertinent clinical information, including history, physical exam and plan: Yes
[2018-05-01] MEDS: Piperacillin/Tazobact 3.375 gm 100 ML IVPB SCH (12:26)
[2018-05-01] MEDS: Aspirin-Dipyridamole 200-25 mg ER Cap PO SCH (12:28)
--- NOTE | 2018-05-01 12:59 | VASCULAR ---
Date of service: 05/01/2018 PROCEDURE: 1. Abdominal aortogram and selective right lower extremity arteriogram. 2. Proximal- mid right SFA silver Hawk atherectomy and drug-eluting balloon angioplasty 3. Right popliteal drug-eluting balloon angioplasty HISTORY: Severe peripheral vascular disease with ischemic ulcerations and rest pain right posterior calf. Renal insufficiency. Previous CVA. COMPARISON: TECHNIQUE: The relative risks and indications of the procedure were explained the patient consent obtained. The patient placed supine on the arteriogram table left groin prepped and draped usual sterile fashion. Conscious sedation monitoring were provided throughout the procedure by a nurse. Under ultrasound guidance, the left common femoral artery was punctured with a micropuncture set. Exchange is made for a 5 Finnish sheath. A 5 Finnish flush catheter was placed the abdominal aorta distally and an RPO DSA abdominal pelvic arteriogram performed. The catheter was advanced over the bifurcation and placed in the right common femoral artery. An overlapping right lower extremity DSA arteriogram was performed. Images were limited due to the patient's renal insufficiency A 0.035 support guidewire was placed in the mid right SFA. A 7 Finnish 45 cm destination sheath was placed in the right external iliac artery. A 5 Finnish catheter and angled Glidewire were used to negotiate the multi focal stenoses in the right SFA and popliteal arteries. A 0.014 support wire was placed in the mid right anterior tibial artery. Heparin and nitroglycerin were given. Silver Hawk atherectomy of the proximal to mid right SFA was performed with and LS catheter. Four passes were performed. Improved but suboptimal result was obtained. The proximal to mid right SFA was dilated with a 6 mm x 150 mm drug-eluting balloon. A good angiographic result was obtained. The focal critical stenosis in the mid right popliteal artery was dilated with a 5 mm x 4 cm drug-eluting balloon. Once again excellent result was obtained. No stent was required. Completion arteriograms were obtained. The sheath was removed hemostasis obtained with a Perclose device. The patient tolerated the procedure well FINDINGS: The terminal abdominal aorta is patent. Aortic bifurcation is patent. The common and external iliac arteries are widely patent. The internal iliac arteries are patent bilaterally. The left common femoral artery is patent. The left profunda femoral artery is patent. The proximal left SFA is patent. Severe tapered multifocal disease of the proximal to mid right SFA is noted. The right profunda femoral artery is hypertrophied. The distal right SFA has smooth disease without radiographically significant stenosis. There is a critical focal stenosis of the right popliteal artery at the knee. There is severe right trifurcation and tibial occlusive disease. The right tibioperoneal trunk occludes distally. The right posterior tibial and peroneal arteries are occluded. The right anterior tibial artery is continuous in the predominant supply to the foot IMPRESSION: 1. Successful proximal to mid right SFA silver Hawk atherectomy and drug-eluting balloon angioplasty 2. Successful drug-eluting balloon angioplasty of the mid right popliteal artery. 3. Severe right trifurcation and tibial disease. There is 1 vessel runoff via the right anterior tibial artery
--- NOTE | 2018-05-01 14:19 | CP.PCM.PN ---
<Cesario Kirk - Last Filed: 05/01/18 14:06> Subjective - Date & Time of Evaluation Date of Evaluation: 05/01/18 Time of Evaluation: 14:07 - Subjective Subjective: Cesario Kirk, PGY-1, Internal Medicine Progress Note for Dr. Anthony Patient was seen and evaluated at bedside. Patient had no acute overnight events. Upon evaluation this morning, patient reported right leg pain, but denied any other symptoms including headache, fever, chest pain, shortness of breath, nausea, vomiting, constipation, diarrhea, dysuria, hematuria. 12-point ROS was unremarkable except for what was mentioned above. Objective - Vital Signs/Intake and Output Vital Signs (last 24 hours): Temp Pulse Resp BP Pulse Ox 98.1 F 66 17 138/67 95 05/01/18 12:00 05/01/18 12:00 05/01/18 12:00 05/01/18 12:24 05/01/18 06:00 Intake and Output: 05/01/18 05/01/18 06:59 18:59 Intake Total 800 Balance 800 - Medications Medications: Current Medications Acetaminophen (Tylenol 325mg Tab) 650 mg PO Q6H PRN PRN Reason: Fever >100.4 F Last Admin: 04/27/18 04:25 Dose: 650 mg Acetaminophen (Tylenol 325mg Tab) 650 mg PO Q4H PRN PRN Reason: Pain, moderate (4-7) Last Admin: 04/30/18 06:14 Dose: 650 mg Acetylcysteine (Acetylcysteine 20%) 3 ml PO BID [facility] Stop: 05/02/18 18:00 Last Admin: 05/01/18 10:32 Dose: Not Given Amlodipine Besylate (Norvasc) 10 mg PO DAILY [facility] Last Admin: 05/01/18 12:24 Dose: 10 mg Atorvastatin Calcium (Lipitor) 20 mg PO DIN [facility] Last Admin: 04/30/18 17:23 Dose: 20 mg Calcitriol (Rocaltrol) 0.5 mcg PO DAILY [facility] Last Admin: 05/01/18 12:24 Dose: 0.5 mcg Collagenase (Santyl) 0 gm TOP DAILY [facility] Last Admin: 05/01/18 12:25 Dose: Not Given Dextrose (Dextrose 50% Inj) 0 ml IV STAT PRN; Protocol PRN Reason: Hypoglycemia Protocol Dipyridamole/Aspirin (Aggrenox 25-200 Mg) 1 ea PO DAILY [facility] Last Admin: 05/01/18 12:28 Dose: 1 ea Furosemide (Lasix) 20 mg PO DAILY [facility] Last Admin: 04/28/18 11:10 Dose: Not Given Glipizide (Glucotrol Xl) 10 mg PO BID [facility] Last Admin: 04/28/18 11:11 Dose: Not Given Heparin Sodium (Porcine) (Heparin) 5,000 units SC Q12 [facility]; Protocol Last Admin: 04/30/18 22:14 Dose: 5,000 units Sodium Chloride (Sodium Chloride 0.45%) 1,000 mls @ 75 mls/hr IV .[id number] [facility] Last Admin: 05/01/18 10:45 Dose: 75 mls/hr Piperacillin Sod/Tazobactam Sod (Zosyn 3.375 In Ns 100ml) 100 mls @ 25 mls/hr IVPB Q12 [facility]; Protocol Last Admin: 05/01/18 12:26 Dose: 25 mls/hr Dextrose (Dextrose 5% In Water 1000 Ml) 1,000 mls @ 0 mls/hr IV .Q0M PRN; Protocol PRN Reason: Hypoglycemia Protocol Insulin Detemir (Levemir) 10 unit SC HS [facility] Last Admin: 04/30/18 22:15 Dose: 10 units Insulin Human Regular (Humulin R High) 0 units SC ACHS [facility]; Protocol Last Admin: 05/01/18 12:47 Dose: 4 units Losartan Potassium (Cozaar) 100 mg PO DAILY [facility] Last Admin: 05/01/18 12:27 Dose: 100 mg Metformin HCl (Glucophage) 1,000 mg PO BID [facility] Last Admin: 04/28/18 11:13 Dose: Not Given Ondansetron HCl (Zofran Inj) 4 mg IVP ONCE PRN PRN Reason: Nausea/Vomiting Pantoprazole Sodium (Protonix Ec Tab) 40 mg PO 0600 [facility] Last Admin: 05/01/18 05:44 Dose: 40 mg - Labs Labs: 05/01/18 08:50 05/01/18 07:00 PT 11.1 SECONDS (9.4-12.5) 04/26/18 19:14 INR 1.00 04/26/18 19:14 APTT 24.4 Seconds (26.9-38.3) L 04/26/18 19:14 - Constitutional Appears: Well, Non-toxic, No Acute Distress - Head Exam Head Exam: ATRAUMATIC, NORMAL INSPECTION, NORMOCEPHALIC - Eye Exam Eye Exam: EOMI, PERRL - ENT Exam ENT Exam: Mucous Membranes Moist - Neck Exam Neck Exam: Full ROM - Respiratory Exam Respiratory Exam: Clear to Ausculation Bilateral, NORMAL BREATHING PATTERN - Cardiovascular Exam Cardiovascular Exam: REGULAR RHYTHM, RRR Additional comments: DP and PT non-palpable to the right, and faintly palpable to the left, CFT delayed to 5 seconds, TG warm to cool R > L, pitting edema noted to bilateral lower extremity R > L - GI/Abdominal Exam GI & Abdominal Exam: Soft, Normal Bowel Sounds. absent: Tenderness - Extremities Exam Extremities Exam: Full ROM Additional comments: two wounds noted to the posterior aspect of the right leg, no drainage, wounds scabbed over, no malodor, no fluctuance - Neurological Exam Neurological Exam: Alert, Awake, CN II-XII Intact, Oriented x3 - Skin Skin Exam: Dry, Intact Assessment and Plan - Assessment and Plan (Free Text) Assessment: 68 year old female with past medical history of hypertension, type II diabetes mellitus, CKD, CVA, and TIA presented with lower extremity swelling and pain starting a few weeks ago. Patient was admitted for right lower extremity wound with rule out of osteomyelitis. Osteomyelitis was ruled out on MRI. Patient had significant peripheral artery disease on MRA. She went for arteriogram for stenting of distal vessels on 05/01. Plan: Right foot wound 04/14 to cellulitis -Ankle X ray 04/27: mild focal periosteal thickening of lateral aspect of distal right fibula without cortical erosion. Adjacent soft tissue swelling and heterogenous density likely represents soft tissue inflammatory or infectious process -Ankle MRI: large amount of subcutaneous and edema over dorsum of foot. This is consistent with cellulitis of passive edema. There is no marrow edema suggestive of osteomyelitis. -Wound culture 04/27: Enterobacter Cloacae Ssp Cloac. Sensitive to all species but cefazolin. -Skin culture of right calf on 04/26: coagulase negative staphylococcus -Blood culture 04/26: negative for 4 days -Continue with zosyn day 4. Stopped vancomycin. Peripheral Vascular disease -Extremity US 04/27: significant right distal SFA, popliteal, and tibial disease. -Wound culture 04/27: Enterobacter Cloacae Ssp Cloac. Sensitive to all species but cefazolin. -Skin culture of right calf on 04/26: coagulase negative staphylococcus -Blood culture 04/26: negative for 4 days -MRA 04/30: short segment stenoses seen in right SFA proximally and distally. Left SFA is unremarkable. Single vessel runoff to the right ankle via the ant erior tibial. The peroneal trunk and the peroneal and posterior tibial artery are only segmentally visualized. -EMELI: limited study due to calcific vessels, significant R distal SFA, popliteal and tibial disease -Wound cleansed with saline and dressed with xeroform and DSD -Arteriogram 05/01: successful proximal to mid right FA silver Hawk atherectomy and drug eluting balloon angioplasty, successful drug eluting balloon angioplasty of the mid right popliteal artery, severe right trifurcation and t ibial disease. There is 1 vessel runoff via the right anterior tibial artery Hypertension -Continue with norvasc 10 mg daily, cozaar 100 mg daily Type II Diabetes Mellitus -Random glucose: 220 -HgbA1c: 11.3 -Continue with High SSI and started levemir 10 mg HS. Will discharge on insulin upon discharge and will have patient follow up with PCP for further home management. -Diabetic education ordered for patient to be educated regarding self insulin administration -Held glipizide, metformin due to patient's renal status MATHEW on CKD Stage 3B -Cr: 1.5 with baseline of 1.5 -Hold metformin, glipizide, and lasix due to nephrotoxic effects -Continue NS at 75 cc/hr -Continue with calcitriol History of CVA -Continue with aspirin/dipyridamole, and lipitor Normocytic Anemia -Hgb: 9.4 with baseline of 11-12 -Likely 2/2 to anemia of chronic disease from cellulitis of foot GI prophylaxis: protonix 40 mg daily DVT prophylaxis: heparin 5000 U Q12 Patient plan discussed with attending. <Bud Anthony - Last Filed: 05/02/18 07:32> Objective - Vital Signs/Intake and Output Vital Signs (last 24 hours): Temp Pulse Resp BP Pulse Ox 98.6 F 66 20 140/52 L 99 05/01/18 22:48 05/01/18 15:10 05/01/18 22:48 05/01/18 15:10 05/01/18 22:48 Intake and Output: 05/02/18 05/02/18 06:59 18:59 Intake Total 180 Balance 180 - Medications Medications: Current Medications Acetaminophen (Tylenol 325mg Tab) 650 mg PO Q6H PRN PRN Reason: Fever >100.4 F Last Admin: 04/27/18 04:25 Dose: 650 mg Acetaminophen (Tylenol 325mg Tab) 650 mg PO Q4H PRN PRN Reason: Pain, moderate (4-7) Last Admin: 04/30/18 06:14 Dose: 650 mg Acetylcysteine (Acetylcysteine 20%) 3 ml PO BID [facility] Stop: 05/02/18 18:00 Last Admin: 05/01/18 17:56 Dose: 3 ml Amlodipine Besylate (Norvasc) 10 mg PO DAILY [facility] Last Admin: 05/01/18 12:24 Dose: 10 mg Atorvastatin Calcium (Lipitor) 20 mg PO DIN [facility] Last Admin: 05/01/18 17:56 Dose: 20 mg Calcitriol (Rocaltrol) 0.5 mcg PO DAILY [facility] Last Admin: 05/01/18 12:24 Dose: 0.5 mcg Collagenase (Santyl) 0 gm TOP DAILY [facility] Last Admin: 05/01/18 12:25 Dose: Not Given Dextrose (Dextrose 50% Inj) 0 ml IV STAT PRN; Protocol PRN Reason: Hypoglycemia Protocol Dipyridamole/Aspirin (Aggrenox 25-200 Mg) 1 ea PO DAILY [facility] Last Admin: 05/01/18 12:28 Dose: 1 ea Furosemide (Lasix) 20 mg PO DAILY [facility] Last Admin: 04/28/18 11:10 Dose: Not Given Glipizide (Glucotrol Xl) 10 mg PO BID [facility] Last Admin: 04/28/18 11:11 Dose: Not Given Heparin Sodium (Porcine) (Heparin) 5,000 units SC Q12 [facility]; Protocol Last Admin: 04/30/18 22:14 Dose: 5,000 units Sodium Chloride (Sodium Chloride 0.45%) 1,000 mls @ 75 mls/hr IV .[id number] [facility] Last Admin: 05/02/18 00:15 Dose: 75 mls/hr Piperacillin Sod/Tazobactam Sod (Zosyn 3.375 In Ns 100ml) 100 mls @ 25 mls/hr IVPB Q12 [facility]; Protocol Last Admin: 05/02/18 00:14 Dose: 25 mls/hr Dextrose (Dextrose 5% In Water 1000 Ml) 1,000 mls @ 0 mls/hr IV .Q0M PRN; Protocol PRN Reason: Hypoglycemia Protocol Insulin Detemir (Levemir) 10 unit SC HS [facility] Last Admin: 05/02/18 00:15 Dose: 10 units Insulin Human Regular (Humulin R High) 0 units SC ACHS [facility]; Protocol Last Admin: 05/01/18 22:14 Dose: Not Given Losartan Potassium (Cozaar) 100 mg PO DAILY [facility] Last Admin: 05/01/18 12:27 Dose: 100 mg Metformin HCl (Glucophage) 1,000 mg PO BID [facility] Last Admin: 04/28/18 11:13 Dose: Not Given Ondansetron HCl (Zofran Inj) 4 mg IVP ONCE PRN PRN Reason: Nausea/Vomiting Pantoprazole Sodium (Protonix Ec Tab) 40 mg PO 0600 [facility] Last Admin: 05/02/18 05:33 Dose: 40 mg - Labs Labs: 05/02/18 06:10 05/02/18 06:10 PT 11.1 SECONDS (9.4-12.5) 04/26/18 19:14 INR 1.00 04/26/18 19:14 APTT 24.4 Seconds (26.9-38.3) L 04/26/18 19:14 Attending/Attestation - Attestation I have personally seen and examined this patient.: Yes I have fully participated in the care of the patient.: Yes I have reviewed all pertinent clinical information, including history, physical exam and plan: Yes Notes (Text): 05/01/18 68 year old female with past medical history of hypertension, diabetes, CKD and CVA who presented with RLE ulcer and edema. She is on iv antibiotics. Wound culture is growing enterobacter cloacae. ID and podiatry are following. Xray showed mild focal periosteal thickening at the lateral aspect of the distal right fibula with adjacent soft tissue swelling. MRI is negative for osteomyelitis. Dopplers showed significant right distal SFA, popliteal and/or tibial disease. MRA was reviewed as above. Patient had arteriogram today with drug eluting balloon angioplasty. PT evaluation is requested for d/c planning. Continue with iv fluids for acute on chronic kidney disease. Nephrology is following. Continue to hold metformin and glipizide for now. A1c is 11 and patient was started on levemir. Bud Anthony MD Hospitalist.
--- NOTE | 2018-05-01 15:37 | CP.PCM.PN ---
Subjective - Date & Time of Evaluation Date of Evaluation: 05/01/18 Time of Evaluation: 14:00 - Subjective Subjective: Infectious Disease Follow Up: May 01, 2018 68 yo female with presentation of lower extremity swelling in the right initially that started several weeks ago. The patient is having difficulties with ambulation especially in the right leg. Her PMHx includes HTN, T2DM, CKD, CVA, TIA. Two ulcerations on the posterior right leg. Patient on the whole feels very comfortable. Wounds appears to be healing /healed. Enterobacter in leg ulcers. No leukocytosis. ESR of 122. CKD Stage II-III. Elevated Hgb A1c of greater than 11. Currently on Zosyn. No new issues. Arthrectomy and angioplasty performed today by Dr. Mulligan. Severe right trifurcation and tibial disease. Objective - Vital Signs/Intake and Output Vital Signs (last 24 hours): Temp Pulse Resp BP Pulse Ox 98.1 F 66 17 138/67 95 05/01/18 12:00 05/01/18 12:00 05/01/18 12:00 05/01/18 12:24 05/01/18 06:00 Intake and Output: 05/01/18 05/01/18 06:59 18:59 Intake Total 800 Balance 800 - Medications Medications: Current Medications Acetaminophen (Tylenol 325mg Tab) 650 mg PO Q6H PRN PRN Reason: Fever >100.4 F Last Admin: 04/27/18 04:25 Dose: 650 mg Acetaminophen (Tylenol 325mg Tab) 650 mg PO Q4H PRN PRN Reason: Pain, moderate (4-7) Last Admin: 04/30/18 06:14 Dose: 650 mg Acetylcysteine (Acetylcysteine 20%) 3 ml PO BID [facility] Stop: 05/02/18 18:00 Last Admin: 05/01/18 10:32 Dose: Not Given Amlodipine Besylate (Norvasc) 10 mg PO DAILY [facility] Last Admin: 05/01/18 12:24 Dose: 10 mg Atorvastatin Calcium (Lipitor) 20 mg PO DIN [facility] Last Admin: 04/30/18 17:23 Dose: 20 mg Calcitriol (Rocaltrol) 0.5 mcg PO DAILY [facility] Last Admin: 05/01/18 12:24 Dose: 0.5 mcg Collagenase (Santyl) 0 gm TOP DAILY [facility] Last Admin: 05/01/18 12:25 Dose: Not Given Dextrose (Dextrose 50% Inj) 0 ml IV STAT PRN; Protocol PRN Reason: Hypoglycemia Protocol Dipyridamole/Aspirin (Aggrenox 25-200 Mg) 1 ea PO DAILY [facility] Last Admin: 05/01/18 12:28 Dose: 1 ea Furosemide (Lasix) 20 mg PO DAILY [facility] Last Admin: 04/28/18 11:10 Dose: Not Given Glipizide (Glucotrol Xl) 10 mg PO BID [facility] Last Admin: 04/28/18 11:11 Dose: Not Given Heparin Sodium (Porcine) (Heparin) 5,000 units SC Q12 [facility]; Protocol Last Admin: 04/30/18 22:14 Dose: 5,000 units Sodium Chloride (Sodium Chloride 0.45%) 1,000 mls @ 75 mls/hr IV .[id number] [facility] Last Admin: 05/01/18 10:45 Dose: 75 mls/hr Piperacillin Sod/Tazobactam Sod (Zosyn 3.375 In Ns 100ml) 100 mls @ 25 mls/hr IVPB Q12 [facility]; Protocol Last Admin: 05/01/18 12:26 Dose: 25 mls/hr Dextrose (Dextrose 5% In Water 1000 Ml) 1,000 mls @ 0 mls/hr IV .Q0M PRN; Protocol PRN Reason: Hypoglycemia Protocol Insulin Detemir (Levemir) 10 unit SC HS [facility] Last Admin: 04/30/18 22:15 Dose: 10 units Insulin Human Regular (Humulin R High) 0 units SC ACHS [facility]; Protocol Last Admin: 05/01/18 12:47 Dose: 4 units Losartan Potassium (Cozaar) 100 mg PO DAILY [facility] Last Admin: 05/01/18 12:27 Dose: 100 mg Metformin HCl (Glucophage) 1,000 mg PO BID [facility] Last Admin: 04/28/18 11:13 Dose: Not Given Ondansetron HCl (Zofran Inj) 4 mg IVP ONCE PRN PRN Reason: Nausea/Vomiting Pantoprazole Sodium (Protonix Ec Tab) 40 mg PO 0600 [facility] Last Admin: 05/01/18 05:44 Dose: 40 mg - Labs Labs: 05/01/18 08:50 05/01/18 07:00 PT 11.1 SECONDS (9.4-12.5) 04/26/18 19:14 INR 1.00 04/26/18 19:14 APTT 24.4 Seconds (26.9-38.3) L 04/26/18 19:14 - Constitutional Appears: Non-toxic, No Acute Distress, Chronically Ill - Head Exam Head Exam: ATRAUMATIC, NORMOCEPHALIC - Eye Exam Eye Exam: EOMI, PERRL Pupil Exam: NORMAL ACCOMODATION, PERRL - ENT Exam ENT Exam: Mucous Membranes Moist, Normal External Ear Exam, TM's Normal Bilaterally - Neck Exam Neck Exam: Full ROM, Normal Inspection - Respiratory Exam Respiratory Exam: Clear to Ausculation Bilateral, NORMAL BREATHING PATTERN. absent: Rales, Rhonchi, Wheezes - Cardiovascular Exam Cardiovascular Exam: REGULAR RHYTHM, RRR, +S1, +S2 - GI/Abdominal Exam GI & Abdominal Exam: Soft, Normal Bowel Sounds. absent: Distended, Tenderness - Extremities Exam Extremities Exam: Pedal Edema Additional comments: bilateral lower extremity swelling and pitting edema R>L that is improving RLE mildly warm, non erythematous, non tender to palpation two ulcerations on right calf that appear to be mostly healed - Neurological Exam Neurological Exam: Alert, Awake, CN II-XII Intact, Oriented x3 - Psychiatric Exam Psychiatric exam: Normal Affect, Normal Mood - Skin Additional comments: As above Assessment and Plan - Assessment and Plan (Free Text) Assessment: 68 yo female with right lower extremity swelling with ulcerations to the posterior of the leg. The ulcerations appear to be healed at this time. Started on Vancomycin and Zosyn for antibiotic coverage. The patient has multiple medical issues that include HTN and DM Type 2. Local wound care. Duplex studies. Check ESR. For now, continue with Zosyn IV. Ulceration sites do not appear infected. Stopped Vancomycin. Continued on Zosyn. Enterobacter in wound culture from right leg ulcerations. Had arthrectomy and angiography today. Wound care as per Podiatry. Can switch to oral antibiotics when ready for discharge... choice would be Ciprofloxacin 250mg BID for 10 days give Enterobacter. Supportive care. Thank you for allowing me to participate in the care of the patient, we will follow with you.
--- NOTE | 2018-05-01 18:37 | PN ---
DATE: 05/01/2018 SUBJECTIVE: The patient is currently seen post atherectomy and angioplasty of her lower extremity for peripheral vascular disease. She is currently seen on telemetry and will shortly be going back to her room on [facility]. She tolerated the procedure well. She is currently receiving anticoagulation with IV fluid hydration in light of her creatinine of 1.5. MEDICATIONS: Medication list reviewed. The patient is on acetylcysteine, Aggrenox, losartan, Glucophage is on hold, Glucotrol is on hold, heparin subcutaneous is on hold, sliding scale insulin, Lasix is currently on hold, Levemir, Lipitor, Norvasc, Protonix, oral calcitriol, Santyl, half-normal saline 75 ml an hour, Tylenol, Zofran, and Zosyn. OBJECTIVE: INTAKE/OUTPUT. Intake is 1820, output is not charted. VITAL SIGNS: Blood pressure presently 138/67, temperature 98.1, respiratory rate 17 with a pulse of 66. HEENT: Shows her to be normocephalic, atraumatic. Conjunctivae are pale. Sclerae nonicteric. NECK: Supple. No neck vein distention. CHEST: Clear to auscultation and percussion. No rales, no rhonchi. No wheezing. CARDIOVASCULAR: Shows a regular rate and rhythm without audible murmurs, rubs or gallops. ABDOMEN: Mildly obese. Soft, nontender. Normal bowel sounds. No rebound or guarding. EXTREMITIES: Show dressing over her right lower extremity and right ankle area. No cyanosis, no clubbing. Diminished lower extremity pulses bilaterally. LABORATORY DATA AND IMAGING STUDIES: CBC, white blood cell count 9.5, hemoglobin 9.4 with a platelet count of 302,000. Chemistries today showed a BUN of 26 at baseline, creatinine of 1.5 at baseline. Remainder of her electrolytes were normal. Glucose is 233 with a calcium of 10.1. Last phosphorus level was 3.9. Last magnesium level was 1.6. Microbiology, right leg cultures were positive for Enterobacter cloacae and coag-negative staph. Blood cultures are negative at 4 days. ASSESSMENT: 1. Diabetic foot ulcer in the setting of peripheral vascular disease. The patient is status post arthrectomy and angioplasty done by Dr. Vlad Mulligan earlier. All precautions were taken to prevent contrast nephrotoxicity. The patient received Mucomyst and she is currently on IV fluid hydration. Creatinine has remained stable at 1.5. 2. Chronic kidney disease stage III stable with a creatinine of 1.5. 3. Insulin-dependent diabetes mellitus. Continue to monitor sugars and adjust insulin accordingly. 4. History of hypertension. Blood pressure controlled on present medications. 5. Past history of a stroke. With mild right-sided weakness. 6. History of mild anemia, perhaps secondary to chronic kidney disease and lower extremity infection with bone marrow suppression. PLAN: 1. Continue to monitor labs closely over the next 24-48 hours to monitor for any contrast nephrotoxicity. 2. May discontinue IV fluid hydration as per ordered protocol to prevent contrast nephrotoxicity, later tonight. 3. Avoid all nephrotoxic agents. 4. Need to monitor glucose and adjust insulin accordingly. Case discussed with staff on telemetry. The patient will be returning to Med-Surg later this evening. Jonathan Arango MD
[2018-05-02] MEDS: Piperacillin/Tazobact 3.375 gm 100 ML IVPB SCH ×3 (00:14→21:45)
[2018-05-02] MEDS: Sodium Chloride 0.45% 1,000 ML IV SCH (00:15)
[2018-05-02] MEDS: Insulin Detemir 100 units/ml Vial (Levemir) SC SCH ×2 (00:15→21:45)
[2018-05-02] MEDS: Pantoprazole 40 mg EC Tab PO SCH (05:33)
[2018-05-02 06:31] LABS: BASO # 0.03 K/mm3 (0.0-2.0); BASO % 0.3 % (0.0-3.0); EOS # 0.4 (0.0-0.7); LYMPH # 2.8 (1.2-3.4); LYMPH % 30.2 % (22.0-35.0); MEAN CORPUSCULAR HEMOGLOBIN 26.6 pg (25.0-35.0); MEAN CORPUSCULAR HGB CONC 31.7 g/dl (31.0-37.0); MEAN PLATELET VOLUME 9.8 fl (7.0-11.0); MONO # 0.6 (0.1-0.6); MONO % 6.8 % (1.0-6.0); RBC 3.38 10^6/uL (3.5-6.1); RED CELL DISTRIBUTION WIDTH 13.8 % (11.5-14.5); WHITE BLOOD COUNT 9.2 10^3/uL (4.5-11.0)
[2018-05-02 07:16] LABS: ALB/GLOB RATIO 0.9 (1.1-1.8); ALBUMIN 3.1 g/dL (3.0-4.8); CALCIUM 9.8 mg/dL (8.4-10.5)
[2018-05-02] MEDS: Insulin Reg-HIGH-Coverage SC SCH ×4 (08:29→21:44)
[2018-05-02] MEDS ORDERED: Magnesium Sulfate 2 gm/50 ml 2 GM/50 ML BAG IVPB ONE (09:17)
[2018-05-02] MEDS: Aspirin-Dipyridamole 200-25 mg ER Cap PO SCH (09:49)
--- NOTE | 2018-05-02 10:45 | CP.PCM.PN ---
Subjective - Date & Time of Evaluation Date of Evaluation: 05/02/18 Time of Evaluation: 10:42 - Subjective Subjective: Podiatry progress note: Dr. Velazquez 68 y/o F patient seen and evaluated for R leg superficial wound Patient resting comfortably and in NAD. No acute events overnight. Patient states that she still has the pain and cramping in her right leg but today it's less in severity and frequency. She denies any overnight nausea/vomiting/fever/shortness of breath/chest pain. Objective - Vital Signs/Intake and Output Vital Signs (last 24 hours): Temp Pulse Resp BP Pulse Ox 98.6 F 55 L 20 150/64 98 05/02/18 09:26 05/02/18 09:26 05/02/18 09:26 05/02/18 09:51 05/02/18 09:26 Intake and Output: 05/02/18 05/02/18 06:59 18:59 Intake Total 180 Balance 180 - Medications Medications: Current Medications Acetaminophen (Tylenol 325mg Tab) 650 mg PO Q6H PRN PRN Reason: Fever >100.4 F Last Admin: 04/27/18 04:25 Dose: 650 mg Acetaminophen (Tylenol 325mg Tab) 650 mg PO Q4H PRN PRN Reason: Pain, moderate (4-7) Last Admin: 04/30/18 06:14 Dose: 650 mg Acetylcysteine (Acetylcysteine 20%) 3 ml PO BID [facility] Stop: 05/02/18 18:00 Last Admin: 05/01/18 17:56 Dose: 3 ml Amlodipine Besylate (Norvasc) 10 mg PO DAILY [facility] Last Admin: 05/02/18 09:51 Dose: 10 mg Atorvastatin Calcium (Lipitor) 20 mg PO DIN [facility] Last Admin: 05/01/18 17:56 Dose: 20 mg Calcitriol (Rocaltrol) 0.5 mcg PO DAILY [facility] Last Admin: 05/02/18 09:48 Dose: 0.5 mcg Collagenase (Santyl) 0 gm TOP DAILY [facility] Last Admin: 05/01/18 12:25 Dose: Not Given Dextrose (Dextrose 50% Inj) 0 ml IV STAT PRN; Protocol PRN Reason: Hypoglycemia Protocol Dipyridamole/Aspirin (Aggrenox 25-200 Mg) 1 ea PO DAILY [facility] Last Admin: 05/02/18 09:49 Dose: 1 ea Furosemide (Lasix) 20 mg PO DAILY [facility] Last Admin: 04/28/18 11:10 Dose: Not Given Glipizide (Glucotrol Xl) 10 mg PO BID [facility] Last Admin: 04/28/18 11:11 Dose: Not Given Heparin Sodium (Porcine) (Heparin) 5,000 units SC Q12 [facility]; Protocol Last Admin: 04/30/18 22:14 Dose: 5,000 units Sodium Chloride (Sodium Chloride 0.45%) 1,000 mls @ 75 mls/hr IV .[id number] [facility] Last Admin: 05/02/18 00:15 Dose: 75 mls/hr Piperacillin Sod/Tazobactam Sod (Zosyn 3.375 In Ns 100ml) 100 mls @ 25 mls/hr IVPB Q12 [facility]; Protocol Last Admin: 05/02/18 00:14 Dose: 25 mls/hr Dextrose (Dextrose 5% In Water 1000 Ml) 1,000 mls @ 0 mls/hr IV .Q0M PRN; Protocol PRN Reason: Hypoglycemia Protocol Insulin Detemir (Levemir) 10 unit SC HS [facility] Last Admin: 05/02/18 00:15 Dose: 10 units Insulin Human Regular (Humulin R High) 0 units SC ACHS [facility]; Protocol Last Admin: 05/02/18 08:29 Dose: 2 units Losartan Potassium (Cozaar) 100 mg PO DAILY [facility] Last Admin: 05/02/18 09:48 Dose: 100 mg Metformin HCl (Glucophage) 1,000 mg PO BID [facility] Last Admin: 04/28/18 11:13 Dose: Not Given Ondansetron HCl (Zofran Inj) 4 mg IVP ONCE PRN PRN Reason: Nausea/Vomiting Pantoprazole Sodium (Protonix Ec Tab) 40 mg PO 0600 [facility] Last Admin: 05/02/18 05:33 Dose: 40 mg - Labs Labs: 05/02/18 06:10 05/02/18 06:10 PT 11.1 SECONDS (9.4-12.5) 04/26/18 19:14 INR 1.00 04/26/18 19:14 APTT 24.4 Seconds (26.9-38.3) L 04/26/18 19:14 - Constitutional Appears: Well, Non-toxic, No Acute Distress - Head Exam Head Exam: ATRAUMATIC, NORMOCEPHALIC - Extremities Exam Additional comments: B/L Lower extremity exam: VASC: DP/PT non-palpable to the right, and faintly palpable to the left. Cap refill delayed to 5 seconds on the R side and almost 4 sec on the left side, Temp gradient warm to cool b/l, pitting edema noted to bilateral lower extremity R > L NEURO: Grossly intact b/l. DERM: Two wounds noted to the posterior aspect of the right leg, no drainage, wounds scabbed over, no malodor, no probe to bone, no signs of infection, no fluctuance noted MSK: Moderate pain on palpation the posterior right leg wounds, decreased muscle strength on the right 4/5 due to previosu CVA, MSK 5/5 on the left. - Neurological Exam Neurological Exam: Awake, Normal Gait - Psychiatric Exam Psychiatric exam: Normal Affect, Normal Mood Assessment and Plan - Assessment and Plan (Free Text) Assessment: 68 y/o F patient with R lower extremity wound, with b/l edema R>L Plan: Patient was seen and evaluated Plan discussed with Dr. Velazquez Charts, labs and vitals reviewed; Afebrile, WBC 9.2 Tib-Fib X-ray: no radiographic evidence of ostemyelitis EMELI/PVR; Limited study due to calcefic vessels, Significant R distal SFA, Popliteal and Tibial disease, Recommended further evaluation with MRA. MRA report; The aorta is unremarkable and smooth in contour. The iliac and common femoral arteries are widely patent. Mild short-segment stenoses can be seen in the right SFA proximally and distally. The left SFA is unremarkable. There is single vessel runoff to the right ankle via the anterior tibial. The peroneal trunk and the peroneal and posterior tibial artery are only segmentally visualized. On the left side the anterior tibial and peroneal are patent. The posterior tibial is occluded. Patient went for angio yesterday. Vascular consult for Dr. Mulligan, recommendations appreciated Wound Culture; Enterbacter cloacae Ssp Cloac. Wound dressed with xeroform, DSD Ordered Santyl to be added to the dressing starting tomorrow Patient to wear the right multipodus boot in her right LE all the times she is on bed. Will continue to follow up with patient while in house
--- NOTE | 2018-05-02 14:57 | CP.PCM.PN ---
Subjective - Date & Time of Evaluation Date of Evaluation: 05/02/18 Time of Evaluation: 14:00 - Subjective Subjective: Infectious Disease Follow Up: May 02, 2018 68 yo female with presentation of lower extremity swelling in the right initially that started several weeks ago. The patient is having difficulties with ambulation especially in the right leg. Her PMHx includes HTN, T2DM, CKD, CVA, TIA. Two ulcerations on the posterior right leg. Patient on the whole feels very comfortable. Wounds appears to be healing /healed. Enterobacter in leg ulcers. No leukocytosis. ESR of 122. CKD Stage II-III. Elevated Hgb A1c of greater than 11. Currently on Zosyn. No new issues. Arthrectomy and angioplasty performed 05/01/[address] Mulligan. Severe right trifurcation and tibial disease. Objective - Vital Signs/Intake and Output Vital Signs (last 24 hours): Temp Pulse Resp BP Pulse Ox 98.6 F 55 L 20 150/64 98 05/02/18 09:26 05/02/18 09:26 05/02/18 09:26 05/02/18 09:51 05/02/18 09:26 Intake and Output: 05/02/18 05/02/18 06:59 18:59 Intake Total 180 Balance 180 - Medications Medications: Current Medications Acetaminophen (Tylenol 325mg Tab) 650 mg PO Q6H PRN PRN Reason: Fever >100.4 F Last Admin: 04/27/18 04:25 Dose: 650 mg Acetaminophen (Tylenol 325mg Tab) 650 mg PO Q4H PRN PRN Reason: Pain, moderate (4-7) Last Admin: 04/30/18 06:14 Dose: 650 mg Acetylcysteine (Acetylcysteine 20%) 3 ml PO BID [facility] Stop: 05/02/18 18:00 Last Admin: 05/01/18 17:56 Dose: 3 ml Amlodipine Besylate (Norvasc) 10 mg PO DAILY [facility] Last Admin: 05/02/18 09:51 Dose: 10 mg Atorvastatin Calcium (Lipitor) 20 mg PO DIN [facility] Last Admin: 05/01/18 17:56 Dose: 20 mg Calcitriol (Rocaltrol) 0.5 mcg PO DAILY [facility] Last Admin: 05/02/18 09:48 Dose: 0.5 mcg Collagenase (Santyl) 0 gm TOP DAILY [facility] Last Admin: 05/01/18 12:25 Dose: Not Given Dextrose (Dextrose 50% Inj) 0 ml IV STAT PRN; Protocol PRN Reason: Hypoglycemia Protocol Dipyridamole/Aspirin (Aggrenox 25-200 Mg) 1 ea PO DAILY [facility] Last Admin: 05/02/18 09:49 Dose: 1 ea Furosemide (Lasix) 20 mg PO DAILY [facility] Last Admin: 04/28/18 11:10 Dose: Not Given Glipizide (Glucotrol Xl) 10 mg PO BID [facility] Last Admin: 04/28/18 11:11 Dose: Not Given Heparin Sodium (Porcine) (Heparin) 5,000 units SC Q12 [facility]; Protocol Last Admin: 04/30/18 22:14 Dose: 5,000 units Sodium Chloride (Sodium Chloride 0.45%) 1,000 mls @ 75 mls/hr IV .[id number] [facility] Last Admin: 05/02/18 00:15 Dose: 75 mls/hr Piperacillin Sod/Tazobactam Sod (Zosyn 3.375 In Ns 100ml) 100 mls @ 25 mls/hr IVPB Q12 [facility]; Protocol Last Admin: 05/02/18 10:52 Dose: 25 mls/hr Dextrose (Dextrose 5% In Water 1000 Ml) 1,000 mls @ 0 mls/hr IV .Q0M PRN; Protocol PRN Reason: Hypoglycemia Protocol Insulin Detemir (Levemir) 10 unit SC HS [facility] Last Admin: 05/02/18 00:15 Dose: 10 units Insulin Human Regular (Humulin R High) 0 units SC ACHS [facility]; Protocol Last Admin: 05/02/18 12:09 Dose: 7 units Losartan Potassium (Cozaar) 100 mg PO DAILY [facility] Last Admin: 05/02/18 09:48 Dose: 100 mg Metformin HCl (Glucophage) 1,000 mg PO BID [facility] Last Admin: 04/28/18 11:13 Dose: Not Given Ondansetron HCl (Zofran Inj) 4 mg IVP ONCE PRN PRN Reason: Nausea/Vomiting Pantoprazole Sodium (Protonix Ec Tab) 40 mg PO 0600 [facility] Last Admin: 05/02/18 05:33 Dose: 40 mg - Labs Labs: 05/02/18 06:10 05/02/18 06:10 PT 11.1 SECONDS (9.4-12.5) 04/26/18 19:14 INR 1.00 04/26/18 19:14 APTT 24.4 Seconds (26.9-38.3) L 04/26/18 19:14 - Constitutional Appears: Non-toxic, No Acute Distress, Chronically Ill - Head Exam Head Exam: ATRAUMATIC, NORMOCEPHALIC - Eye Exam Eye Exam: EOMI, PERRL Pupil Exam: NORMAL ACCOMODATION, PERRL - ENT Exam ENT Exam: Mucous Membranes Moist, Normal External Ear Exam, TM's Normal Bilaterally - Neck Exam Neck Exam: Full ROM, Normal Inspection - Respiratory Exam Respiratory Exam: Clear to Ausculation Bilateral, NORMAL BREATHING PATTERN. absent: Rales, Rhonchi, Wheezes - Cardiovascular Exam Cardiovascular Exam: REGULAR RHYTHM, RRR, +S1, +S2 - GI/Abdominal Exam GI & Abdominal Exam: Soft, Normal Bowel Sounds. absent: Distended, Tenderness - Extremities Exam Extremities Exam: Pedal Edema Additional comments: bilateral lower extremity swelling and pitting edema R>L that is improving RLE mildly warm, non erythematous, non tender to palpation two ulcerations on right calf that appear to be mostly healed - Neurological Exam Neurological Exam: Alert, Awake, CN II-XII Intact, Oriented x3 - Psychiatric Exam Psychiatric exam: Normal Affect, Normal Mood - Skin Additional comments: As above. Assessment and Plan - Assessment and Plan (Free Text) Assessment: 68 yo female with right lower extremity swelling with ulcerations to the posterior of the leg. The ulcerations appear to be healed at this time. Started on Vancomycin and Zosyn for antibiotic coverage. The patient has multiple medical issues that include HTN and DM Type 2. Local wound care. Duplex studies. Check ESR. For now, continue with Zosyn IV. Ulceration sites do not appear infected. Stopped Vancomycin. Continued on Zosyn. Enterobacter in wound culture from right leg ulcerations. Had arthrectomy and angiography today. Wound care as per Podiatry. Can switch to oral antibiotics when ready for discharge... choice would be Ciprofloxacin 250mg BID for 10 days given Enterobacter growth. Supportive care. Thank you for allowing me to participate in the care of the patient, we will follow with you.
--- NOTE | 2018-05-02 16:49 | CP.PCM.PN ---
<Cesario Kirk - Last Filed: 05/02/18 16:42> Subjective - Date & Time of Evaluation Date of Evaluation: 05/02/18 Time of Evaluation: 16:42 - Subjective Subjective: Cesario Kirk, PGY-1, Internal Medicine Progress Note for Dr. Anthony Patient was seen and evaluated at bedside. Patient had no acute overnight events. Upon evaluation this morning, patient reported right leg pain, but denied any other symptoms including headache, fever, chest pain, shortness of breath, nausea, vomiting, constipation, diarrhea, dysuria, hematuria. 12-point ROS was unremarkable except for what was mentioned above. Objective - Vital Signs/Intake and Output Vital Signs (last 24 hours): Temp Pulse Resp BP Pulse Ox 98.6 F 55 L 20 150/64 98 05/02/18 09:26 05/02/18 09:26 05/02/18 09:26 05/02/18 09:51 05/02/18 09:26 Intake and Output: 05/02/18 05/02/18 06:59 18:59 Intake Total 180 Balance 180 - Medications Medications: Current Medications Acetaminophen (Tylenol 325mg Tab) 650 mg PO Q6H PRN PRN Reason: Fever >100.4 F Last Admin: 04/27/18 04:25 Dose: 650 mg Acetaminophen (Tylenol 325mg Tab) 650 mg PO Q4H PRN PRN Reason: Pain, moderate (4-7) Last Admin: 04/30/18 06:14 Dose: 650 mg Acetylcysteine (Acetylcysteine 20%) 3 ml PO BID [facility] Stop: 05/02/18 18:00 Last Admin: 05/01/18 17:56 Dose: 3 ml Amlodipine Besylate (Norvasc) 10 mg PO DAILY [facility] Last Admin: 05/02/18 09:51 Dose: 10 mg Atorvastatin Calcium (Lipitor) 20 mg PO DIN [facility] Last Admin: 05/01/18 17:56 Dose: 20 mg Calcitriol (Rocaltrol) 0.5 mcg PO DAILY [facility] Last Admin: 05/02/18 09:48 Dose: 0.5 mcg Collagenase (Santyl) 0 gm TOP DAILY [facility] Last Admin: 05/01/18 12:25 Dose: Not Given Dextrose (Dextrose 50% Inj) 0 ml IV STAT PRN; Protocol PRN Reason: Hypoglycemia Protocol Dipyridamole/Aspirin (Aggrenox 25-200 Mg) 1 ea PO DAILY [facility] Last Admin: 05/02/18 09:49 Dose: 1 ea Furosemide (Lasix) 20 mg PO DAILY [facility] Last Admin: 04/28/18 11:10 Dose: Not Given Glipizide (Glucotrol Xl) 10 mg PO BID [facility] Last Admin: 04/28/18 11:11 Dose: Not Given Heparin Sodium (Porcine) (Heparin) 5,000 units SC Q12 [facility]; Protocol Last Admin: 04/30/18 22:14 Dose: 5,000 units Piperacillin Sod/Tazobactam Sod (Zosyn 3.375 In Ns 100ml) 100 mls @ 25 mls/hr IVPB Q12 [facility]; Protocol Last Admin: 05/02/18 10:52 Dose: 25 mls/hr Dextrose (Dextrose 5% In Water 1000 Ml) 1,000 mls @ 0 mls/hr IV .Q0M PRN; Protocol PRN Reason: Hypoglycemia Protocol Insulin Detemir (Levemir) 10 unit SC HS [facility] Last Admin: 05/02/18 00:15 Dose: 10 units Insulin Human Regular (Humulin R High) 0 units SC ACHS [facility]; Protocol Last Admin: 05/02/18 15:56 Dose: 10 units Losartan Potassium (Cozaar) 100 mg PO DAILY [facility] Last Admin: 05/02/18 09:48 Dose: 100 mg Metformin HCl (Glucophage) 1,000 mg PO BID [facility] Last Admin: 04/28/18 11:13 Dose: Not Given Ondansetron HCl (Zofran Inj) 4 mg IVP ONCE PRN PRN Reason: Nausea/Vomiting Pantoprazole Sodium (Protonix Ec Tab) 40 mg PO 0600 [facility] Last Admin: 05/02/18 05:33 Dose: 40 mg - Labs Labs: 05/02/18 06:10 05/02/18 06:10 PT 11.1 SECONDS (9.4-12.5) 04/26/18 19:14 INR 1.00 04/26/18 19:14 APTT 24.4 Seconds (26.9-38.3) L 04/26/18 19:14 - Constitutional Appears: Well, Non-toxic, No Acute Distress - Head Exam Head Exam: ATRAUMATIC, NORMAL INSPECTION, NORMOCEPHALIC - Eye Exam Eye Exam: EOMI, PERRL - ENT Exam ENT Exam: Mucous Membranes Moist - Neck Exam Neck Exam: Full ROM - Respiratory Exam Respiratory Exam: Clear to Ausculation Bilateral, NORMAL BREATHING PATTERN - Cardiovascular Exam Cardiovascular Exam: REGULAR RHYTHM, RRR Additional comments: DP and PT non-palpable to the right, and faintly palpable to the left, CFT delayed to 5 seconds, TG warm to cool R > L, pitting edema noted to bilateral lower extremity R > L - GI/Abdominal Exam GI & Abdominal Exam: Soft, Normal Bowel Sounds. absent: Tenderness - Extremities Exam Extremities Exam: Full ROM Additional comments: two wounds noted to the posterior aspect of the right leg, no drainage, wounds scabbed over, no malodor, no fluctuance - Neurological Exam Neurological Exam: Alert, Awake, CN II-XII Intact, Oriented x3 - Skin Skin Exam: Dry, Intact Assessment and Plan - Assessment and Plan (Free Text) Assessment: 68 year old female with past medical history of hypertension, type II diabetes mellitus, CKD, CVA, and TIA presented with lower extremity swelling and pain starting a few weeks ago. Patient was admitted for right lower extremity wound with rule out of osteomyelitis. Osteomyelitis was ruled out on MRI. Patient had significant peripheral artery disease on MRA. She went for arteriogram for stenting of distal vessels on 05/01. Plan: Right foot wound 04/14 to cellulitis -Ankle X ray 04/27: mild focal periosteal thickening of lateral aspect of distal right fibula without cortical erosion. Adjacent soft tissue swelling and heterogenous density likely represents soft tissue inflammatory or infectious process -Ankle MRI: large amount of subcutaneous and edema over dorsum of foot. This is consistent with cellulitis of passive edema. There is no marrow edema suggestive of osteomyelitis. -Wound culture 04/27: Enterobacter Cloacae Ssp Cloac. Sensitive to all species but cefazolin. -Skin culture of right calf on 04/26: coagulase negative staphylococcus -Blood culture 04/26: negative for 5 days -Continue with zosyn day 5. Stopped vancomycin. Peripheral Vascular disease -Extremity US 04/27: significant right distal SFA, popliteal, and tibial disease. -Wound culture 04/27: Enterobacter Cloacae Ssp Cloac. Sensitive to all species but cefazolin. -Skin culture of right calf on 04/26: coagulase negative staphylococcus -Blood culture 04/26: negative for 5 days -MRA 04/30: short segment stenoses seen in right SFA proximally and distally. Le ft SFA is unremarkable. Single vessel runoff to the right ankle via the anterior tibial. The peroneal trunk and the peroneal and posterior tibial artery are only segmentally visualized. -EMELI: limited study due to calcific vessels, significant R distal SFA, popliteal and tibial disease -Wound cleansed with saline and dressed with xeroform and DSD -Arteriogram 05/01: successful proximal to mid right FA silver Hawk atherectomy and drug eluting balloon angioplasty, successful drug eluting balloon ang ioplasty of the mid right popliteal artery, severe right trifurcation and tibial disease. There is 1 vessel runoff via the right anterior tibial artery Hypertension -Continue with norvasc 10 mg daily, cozaar 100 mg daily Type II Diabetes Mellitus -HgbA1c: 11.3 -Continue with High SSI and levemir 10 mg HS. Will discharge on insulin upon discharge and will have patient follow up with PCP for further home management. -Diabetic education ordered for patient to be educated regarding self insulin administration -Held glipizide, metformin due to patient's renal status MATHEW on CKD Stage 3B -Cr: 1.6 with baseline of 1.5 -Hold metformin, glipizide, and lasix due to nephrotoxic effects -Continue with calcitriol History of CVA -Continue with aspirin/dipyridamole, and lipitor Normocytic Anemia -Hgb: 9.0 with baseline of 11-12 -Likely 2/2 to anemia of chronic disease from cellulitis of foot GI prophylaxis: protonix 40 mg daily DVT prophylaxis: heparin 5000 U Q12 Disposition: PT recommended [facility]. However, patient was unable to get [facility]ERT approved today. Will follow up again with social work tomorrow for follow up regarding [facility] approval. Patient plan discussed with attending. <Bud Anthony - Last Filed: 05/02/18 17:23> Objective - Vital Signs/Intake and Output Vital Signs (last 24 hours): Temp Pulse Resp BP Pulse Ox 98.5 F 71 18 131/66 96 05/02/18 14:00 05/02/18 14:00 05/02/18 14:00 05/02/18 14:00 05/02/18 14:00 Intake and Output: 05/02/18 05/02/18 06:59 18:59 Intake Total 180 Balance 180 - Medications Medications: Current Medications Acetaminophen (Tylenol 325mg Tab) 650 mg PO Q6H PRN PRN Reason: Fever >100.4 F Last Admin: 04/27/18 04:25 Dose: 650 mg Acetaminophen (Tylenol 325mg Tab) 650 mg PO Q4H PRN PRN Reason: Pain, moderate (4-7) Last Admin: 04/30/18 06:14 Dose: 650 mg Acetylcysteine (Acetylcysteine 20%) 3 ml PO BID [facility] Stop: 05/02/18 18:00 Last Admin: 05/01/18 17:56 Dose: 3 ml Amlodipine Besylate (Norvasc) 10 mg PO DAILY [facility] Last Admin: 05/02/18 09:51 Dose: 10 mg Atorvastatin Calcium (Lipitor) 20 mg PO DIN [facility] Last Admin: 05/01/18 17:56 Dose: 20 mg Calcitriol (Rocaltrol) 0.5 mcg PO DAILY [facility] Last Admin: 05/02/18 09:48 Dose: 0.5 mcg Collagenase (Santyl) 0 gm TOP DAILY [facility] Last Admin: 05/01/18 12:25 Dose: Not Given Dextrose (Dextrose 50% Inj) 0 ml IV STAT PRN; Protocol PRN Reason: Hypoglycemia Protocol Dipyridamole/Aspirin (Aggrenox 25-200 Mg) 1 ea PO DAILY [facility] Last Admin: 05/02/18 09:49 Dose: 1 ea Furosemide (Lasix) 20 mg PO DAILY [facility] Last Admin: 04/28/18 11:10 Dose: Not Given Glipizide (Glucotrol Xl) 10 mg PO BID [facility] Last Admin: 04/28/18 11:11 Dose: Not Given Heparin Sodium (Porcine) (Heparin) 5,000 units SC Q12 [facility]; Protocol Last Admin: 04/30/18 22:14 Dose: 5,000 units Piperacillin Sod/Tazobactam Sod (Zosyn 3.375 In Ns 100ml) 100 mls @ 25 mls/hr IVPB Q12 [facility]; Protocol Last Admin: 05/02/18 10:52 Dose: 25 mls/hr Dextrose (Dextrose 5% In Water 1000 Ml) 1,000 mls @ 0 mls/hr IV .Q0M PRN; Protocol PRN Reason: Hypoglycemia Protocol Insulin Detemir (Levemir) 10 unit SC HS [facility] Last Admin: 05/02/18 00:15 Dose: 10 units Insulin Human Regular (Humulin R High) 0 units SC ACHS [facility]; Protocol Last Admin: 05/02/18 15:56 Dose: 10 units Losartan Potassium (Cozaar) 100 mg PO DAILY [facility] Last Admin: 05/02/18 09:48 Dose: 100 mg Metformin HCl (Glucophage) 1,000 mg PO BID [facility] Last Admin: 04/28/18 11:13 Dose: Not Given Ondansetron HCl (Zofran Inj) 4 mg IVP ONCE PRN PRN Reason: Nausea/Vomiting Pantoprazole Sodium (Protonix Ec Tab) 40 mg PO 0600 [facility] Last Admin: 05/02/18 05:33 Dose: 40 mg - Labs Labs: 05/02/18 06:10 05/02/18 06:10 PT 11.1 SECONDS (9.4-12.5) 04/26/18 19:14 INR 1.00 04/26/18 19:14 APTT 24.4 Seconds (26.9-38.3) L 04/26/18 19:14 Attending/Attestation - Attestation I have personally seen and examined this patient.: Yes I have fully participated in the care of the patient.: Yes I have reviewed all pertinent clinical information, including history, physical exam and plan: Yes Notes (Text): 05/02/18 17:21 68 year old female with past medical history of hypertension, diabetes, CKD and CVA who presented with RLE ulcer and edema. She is on iv antibiotics. Wound culture is growing enterobacter cloacae. ID and podiatry are following. Xray showed mild focal periosteal thickening at the lateral aspect of the distal right fibula with adjacent soft tissue swelling. MRI is negative for osteomyelitis. Dopplers showed significant right distal SFA, popliteal and/or tibial disease. MRA was reviewed as above. Patient had arteriogram yesterday with drug eluting balloon angioplasty. Continue to monitor kidney disease function closely. Nephrology is following. Continue to hold metformin and glipizide for now. A1c is 11 and patient was started on levemir. PT evaluation was appreciated; recommended HER[facility]ERT which patient is agreeable for. D/c planning pending HERBERT placement. Bud Anthony MD Hospitalist.
[2018-05-02] MEDS: Collagenase 250 Units/gm Ointment(30 gm) TOP SCH (19:50)
--- NOTE | 2018-05-02 19:54 | PN ---
DATE: 05/02/2018 SUBJECTIVE: The patient is seen lying in bed. She is awake, she is alert. She is comfortable. She does not appear to be in any kind of distress. She had an MRA, then she had an angiogram done yesterday. She is status post successful proximal to mid right SFA atherectomy and balloon angioplasty, successful drug-eluting balloon angioplasty of the mid right popliteal artery. PHYSICAL EXAMINATION: GENERAL: She is an elderly lady lying in bed. VITAL SIGNS: Blood pressure 150/64, heart rate 55, respiratory rate 20, temperature 98.6. HEENT: Normocephalic, atraumatic, positive pallor. NECK: Supple, no JVD. LUNGS: Bilateral equal air entry, no rales, no rhonchi. CARDIAC: S1, S2, regular rate and rhythm, no murmur, no rub. ABDOMEN: Obese, distended, soft, nontender, bowel sounds present. EXTREMITIES: Dressing of the right foot. INTAKE AND OUTPUT: Not charted. LABORATORY DATA: WBC 9, hemoglobin 9, hematocrit 28, platelets 279. Sodium 137, potassium 4, chloride 109, CO2 23, BUN 27, creatinine 1.6, glucose 233, calcium 9.8, phosphorus 4.4, magnesium 1.5. Albumin 3.1, globulin 3.6. CURRENT MEDICATIONS: Aggrenox Cozaar, Glucophage on hold, glipizide on hold, insulin, Lasix 20 p.o. daily on hold, Lipitor 20, amlodipine 10, Protonix 40, Rocaltrol 0.5, half-normal saline at 75, Tylenol, Zofran, Zosyn 3.375 every 12 hours, magnesium 1 g given this morning. ASSESSMENT: 1. Stable chronic kidney disease stage III. 2. Poorly controlled diabetes. 3. Hypertension. 4. History of cerebrovascular accident, right hemiparesis. 5. Peripheral arterial disease. 6. Cellulitis of the right lower extremity. 7. Anemia of chronic disease. PLAN: 1. Discontinue IV fluids. 2. Continue antibiotics as per ID recommendations. 3. Avoid nephrotoxins. 4.. Continue losartan. 5.. Monitor fingersticks and continue insulin coverage. Carolina Mccauley MD
[2018-05-03] MEDS: Pantoprazole 40 mg EC Tab PO SCH (06:11)
[2018-05-03 07:09] LABS: BASO # 0.05 K/mm3 (0.0-2.0); BASO % 0.6 % (0.0-3.0); EOS # 0.5 (0.0-0.7); EOS % 5.6 % (1.5-5.0); HEMOGLOBIN 8.9 g/dL (12.0-16.0); LYMPH # 2.9 (1.2-3.4); LYMPH % 31.9 % (22.0-35.0); MEAN CELL VOLUME 83.1 fl (80.0-105.0); MEAN CORPUSCULAR HEMOGLOBIN 26.3 pg (25.0-35.0); MEAN CORPUSCULAR HGB CONC 31.7 g/dl (31.0-37.0); MEAN PLATELET VOLUME 9.9 fl (7.0-11.0); MONO # 0.7 (0.1-0.6); MONO % 7.2 % (1.0-6.0); RBC 3.38 10^6/uL (3.5-6.1); RED CELL DISTRIBUTION WIDTH 13.9 % (11.5-14.5)
[2018-05-03 07:18] LABS: ALB/GLOB RATIO 0.9 (1.1-1.8); ALBUMIN 3.2 g/dL (3.0-4.8)
[2018-05-03] MEDS: Insulin Reg-HIGH-Coverage SC SCH ×3 (07:43→16:14)
[2018-05-03 09:04] VITALS: RESP 18
[2018-05-03] MEDS ORDERED: Insulin Regular 1 UNITS/0.01 ML ML SC ONE (09:06)
[2018-05-03] MEDS ORDERED: Insulin Lispro (humaLOG) MIX 75/25(10 ml) SC SCH (10:00)
[2018-05-03] MEDS: Aspirin-Dipyridamole 200-25 mg ER Cap PO SCH (10:11)
[2018-05-03] MEDS ORDERED: Sodium Chloride 0.9% 500 ML IV SCH (10:30)
--- NOTE | 2018-05-03 11:46 | CP.PCM.PN ---
<Sung Fleming - Last Filed: 05/03/18 11:43> Subjective - Date & Time of Evaluation Date of Evaluation: 05/03/18 Time of Evaluation: 11:43 - Subjective Subjective: Podiatry progress note: Dr. Velazquez 68 y/o F patient seen and evaluated for R leg superficial wound Patient resting comfortably and in NAD. No acute events overnight. Patient states that She only feels episodes of spasm in her RLE but not painful as before. She denies any overnight nausea/vomiting/fever/shortness of breath/chest pain. Objective - Vital Signs/Intake and Output Vital Signs (last 24 hours): Temp Pulse Resp BP Pulse Ox 97.9 F 66 18 146/68 97 05/03/18 06:00 05/03/18 06:00 05/03/18 06:00 05/03/18 10:11 05/03/18 06:00 Intake and Output: 05/03/18 05/03/18 06:59 18:59 Intake Total 380 Balance 380 - Medications Medications: Current Medications Acetaminophen (Tylenol 325mg Tab) 650 mg PO Q6H PRN PRN Reason: Fever >100.4 F Last Admin: 04/27/18 04:25 Dose: 650 mg Acetaminophen (Tylenol 325mg Tab) 650 mg PO Q4H PRN PRN Reason: Pain, moderate (4-7) Last Admin: 04/30/18 06:14 Dose: 650 mg Amlodipine Besylate (Norvasc) 10 mg PO DAILY [facility] Last Admin: 05/03/18 10:11 Dose: 10 mg Atorvastatin Calcium (Lipitor) 20 mg PO DIN [facility] Last Admin: 05/02/18 17:20 Dose: 20 mg Calcitriol (Rocaltrol) 0.5 mcg PO DAILY [facility] Last Admin: 05/03/18 10:11 Dose: 0.5 mcg Collagenase (Santyl) 0 gm TOP DAILY [facility] Last Admin: 05/02/18 19:50 Dose: Not Given Dextrose (Dextrose 50% Inj) 0 ml IV STAT PRN; Protocol PRN Reason: Hypoglycemia Protocol Dipyridamole/Aspirin (Aggrenox 25-200 Mg) 1 ea PO DAILY [facility] Last Admin: 05/03/18 10:11 Dose: 1 ea Furosemide (Lasix) 20 mg PO DAILY [facility] Last Admin: 04/28/18 11:10 Dose: Not Given Glipizide (Glucotrol Xl) 10 mg PO BID [facility] Last Admin: 04/28/18 11:11 Dose: Not Given Heparin Sodium (Porcine) (Heparin) 5,000 units SC Q12 [facility]; Protocol Last Admin: 04/30/18 22:14 Dose: 5,000 units Dextrose (Dextrose 5% In Water 1000 Ml) 1,000 mls @ 0 mls/hr IV .Q0M PRN; Protocol PRN Reason: Hypoglycemia Protocol Sodium Chloride (Sodium Chloride 0.9%) 500 mls @ 150 mls/hr IV .Q3H20M [facility] Insulin Human Regular (Humulin R High) 0 units SC ACHS [facility]; Protocol Last Admin: 05/03/18 07:43 Dose: 4 units Insulin Lispro Protam/Lispro Human (Humalog Mix 75/25) 45 units SC AMHS [facility] Losartan Potassium (Cozaar) 100 mg PO DAILY [facility] Last Admin: 05/03/18 10:12 Dose: 100 mg Metformin HCl (Glucophage) 1,000 mg PO BID [facility] Last Admin: 04/28/18 11:13 Dose: Not Given Ondansetron HCl (Zofran Inj) 4 mg IVP ONCE PRN PRN Reason: Nausea/Vomiting Pantoprazole Sodium (Protonix Ec Tab) 40 mg PO 0600 [facility] Last Admin: 05/03/18 06:11 Dose: 40 mg - Labs Labs: 05/03/18 06:15 05/03/18 06:15 PT 11.1 SECONDS (9.4-12.5) 04/26/18 19:14 INR 1.00 04/26/18 19:14 APTT 24.4 Seconds (26.9-38.3) L 04/26/18 19:14 - Constitutional Appears: Well, Non-toxic, No Acute Distress - Head Exam Head Exam: ATRAUMATIC, NORMOCEPHALIC - Extremities Exam Additional comments: B/L Lower extremity exam: VASC: DP/PT non-palpable to the right, and faintly palpable to the left. Cap refill delayed to 5 seconds on the R side and almost 4 sec on the left side, Temp gradient warm to cool b/l, pitting edema noted to bilateral lower extremity R > L NEURO: Grossly intact b/l. DERM: Two wounds noted to the posterior aspect of the right leg, no drainage, wounds scabbed over, no malodor, no probe to bone, no signs of infection, no fluctuance noted MSK: Moderate pain on palpation the posterior right leg wounds, decreased muscle strength on the right 4/5 due to previosu CVA, MSK 5/5 on the left. - Neurological Exam Neurological Exam: Alert, Awake, Oriented x3 - Psychiatric Exam Psychiatric exam: Normal Affect, Normal Mood Assessment and Plan - Assessment and Plan (Free Text) Assessment: 68 y/o F patient with R lower extremity wound, with b/l edema R>L Plan: Patient was seen and evaluated Plan discussed with Dr. Velazquez Charts, labs and vitals reviewed; Afebrile, WBC 9.2 Tib-Fib X-ray: no radiographic evidence of ostemyelitis EMELI/PVR; Limited study due to calcefic vessels, Significant R distal SFA, Popliteal and Tibial disease, Recommended further evaluation with MRA. MRA report; The aorta is unremarkable and smooth in contour. The iliac and common femoral arteries are widely patent. Mild short-segment stenoses can be seen in the right SFA proximally and distally. The left SFA is unremarkable. There is single vessel runoff to the right ankle via the anterior tibial. The peroneal trunk and the peroneal and posterior tibial artery are only segmentally visualized. On the left side the anterior tibial and peroneal are patent. The posterior tibial is occluded. Patient went for angio on 05/[address] Mulligan with successful atherectomy and balloon angioplast of the R SFA, Balloon angioplasty of the R popliteal. Sever R tibial artery disease with 1 vessel runoff anterior tibial artery. Vascular consult for Dr. Mulligan, recommendations appreciated Wound Culture; Enterbacter cloacae Ssp Cloac. Wound cleansed with saline then dressed with LUIS A Raya Patient to wear the right multipodus boot in her right LE all the times she is on bed. Will continue to follow up with patient while in house <David Velazquez - Last Filed: 05/04/18 17:13> Objective - Vital Signs/Intake and Output Vital Signs (last 24 hours): Temp Pulse Resp BP Pulse Ox 98.8 F 76 18 140/74 98 05/03/18 14:00 05/03/18 14:00 05/03/18 14:00 05/03/18 14:00 05/03/18 14:00 - Labs Labs: 05/03/18 06:15 05/03/18 06:15 PT 11.1 SECONDS (9.4-12.5) 04/26/18 19:14 INR 1.00 04/26/18 19:14 APTT 24.4 Seconds (26.9-38.3) L 04/26/18 19:14 Attending/Attestation - Attestation I have personally seen and examined this patient.: Yes I have fully participated in the care of the patient.: Yes I have reviewed all pertinent clinical information, including history, physical exam and plan: Yes
[2018-05-03] MEDS: Collagenase 250 Units/gm Ointment(30 gm) TOP SCH (13:14)
--- NOTE | 2018-05-03 14:55 | CP.PCM.DIS ---
Provider - Provider Date of Admission: 04/27/18 15:46 Attending physician: Bud Anthony MD Primary care physician: Hu Hernandez MD Consults: 04/26/18 21:04 Infectious Disease Consult Routine Comment: Consulting Provider: Trae Peña Consulting Physician: Trae Peña Reason for Consult: RLE swelling, leukocytosis, ?cellulitis Nursing Referral for Wound Care Routine Comment: Physician Instructions: Reason For Exam: RLE wounds Podiatry Consult Routine Comment: Consulting Provider: David Velazquez Consulting Physician: David Velazquez Reason for Consult: RLE swelling 04/27/18 10:59 Consult [Physician Consult] Routine Comment: evaluate art dopplers- right leg ulcer/pain Consulting Provider: Vlad Mulligan Consulting Physician: Vlad Mulligan Reason for Consult: evaluate art dopplers 04/28/18 10:15 Consult [Physician Consult] Routine Comment: Consulting Provider: Carolina Mccauley Consulting Physician: Carolina Mccauley Reason for Consult: mathew with pending mris 04/29/18 15:53 Diabetic Education Referral Routine Comment: Physician Instructions: Reason For Exam: A1c>10; new to insulin 04/30/18 11:38 Diabetic Education Referral Routine Comment: Physician Instructions: Reason For Exam: insulin admin teaching Time Spent in preparation of Discharge (in minutes): 60 Diagnosis - Discharge Diagnosis (1) Cellulitis Status: Acute (2) Ulcer of right leg Status: Acute Hospital Course - Lab Results Lab Results: Micro Results 04/26/18 19:44 Blood Blood Culture - Final NO GROWTH AFTER 5 DAYS 04/26/18 19:44 Blood Gram Stain - Final TEST NOT PERFORMED 04/26/18 19:14 Blood Blood Culture - Final NO GROWTH AFTER 5 DAYS 04/26/18 19:14 Blood Gram Stain - Final TEST NOT PERFORMED 04/26/18 18:57 Skin - Calf-Right Gram Stain - Final 04/26/18 18:57 Skin - Calf-Right Wound Culture - Final Coagulase Neg Staphylococcus 04/27/18 11:00 Leg - Right Gram Stain - Final 04/27/18 11:00 Leg - Right Wound Culture - Final Enterobacter Cloacae Ssp Cloac Most Recent Lab Values WBC 9.0 10^3/uL (4.5-11.0) 05/03/18 06:15 RBC 3.38 10^6/uL (3.5-6.1) L 05/03/18 06:15 Hgb 8.9 g/dL (12.0-16.0) L 05/03/18 06:15 Hct 28.1 % (36.0-48.0) L 05/03/18 06:15 MCV 83.1 fl (80.0-105.0) 05/03/18 06:15 MCH 26.3 pg (25.0-35.0) 05/03/18 06:15 MCHC 31.7 g/dl (31.0-37.0) 05/03/18 06:15 RDW 13.9 % (11.5-14.5) 05/03/18 06:15 Plt Count 292 10^3/uL (120.0-450.0) 05/03/18 06:15 MPV 9.9 fl (7.0-11.0) 05/03/18 06:15 Neut % (Auto) 54.7 % (50.0-68.0) 05/03/18 06:15 Lymph % (Auto) 31.9 % (22.0-35.0) 05/03/18 06:15 Walsh % (Auto) 7.2 % (1.0-6.0) H 05/03/18 06:15 Eos % (Auto) 5.6 % (1.5-5.0) H 05/03/18 06:15 Baso % (Auto) 0.6 % (0.0-3.0) 05/03/18 06:15 Lymph # (Auto) 2.9 (1.2-3.4) 05/03/18 06:15 Walsh # (Auto) 0.7 (0.1-0.6) H 05/03/18 06:15 Eos # (Auto) 0.5 (0.0-0.7) 05/03/18 06:15 Baso # (Auto) 0.05 K/mm3 (0.0-2.0) 05/03/18 06:15 Absolute Neuts (auto) 4.92 (1.4-6.5) 05/03/18 06:15 ESR 122 mm/hr (0.0-20.0) H 04/28/18 07:20 PT 11.1 SECONDS (9.4-12.5) 04/26/18 19:14 INR 1.00 04/26/18 19:14 APTT 24.4 Seconds (26.9-38.3) L 04/26/18 19:14 Sodium 137 mmol/L (132-148) 05/03/18 06:15 Potassium 4.0 mmol/L (3.6-5.0) 05/03/18 06:15 Chloride 108 mmol/L (98-107) H 05/03/18 06:15 Carbon Dioxide 24 mmol/L (21-33) 05/03/18 06:15 Anion Gap 10 (10-20) 05/03/18 06:15 BUN 30 mg/dL (7-21) H 05/03/18 06:15 Creatinine 1.9 mg/dl (0.7-1.2) H 05/03/18 06:15 Est GFR ( Amer) 32 05/03/18 06:15 Est GFR (Non-Af Amer) 26 05/03/18 06:15 POC Glucose (mg/dL) 257 mg/dL (65-110) H 05/03/18 11:43 Random Glucose 270 mg/dL (70-110) H 05/03/18 06:15 Hemoglobin A1c 11.3 % (4.2-6.5) H 04/28/18 12:13 Calcium 10.0 mg/dL (8.4-10.5) 05/03/18 06:15 Phosphorus 4.4 mg/dL (2.5-4.5) 05/02/18 06:10 Magnesium 1.5 mg/dL (1.7-2.2) L 05/02/18 06:10 Total Bilirubin 0.3 mg/dL (0.2-1.3) 05/03/18 06:15 AST 21 U/L (14-36) 05/03/18 06:15 ALT 12 U/L (7-56) 05/03/18 06:15 Alkaline Phosphatase 68 U/L (38-126) 05/03/18 06:15 NT-Pro-B Natriuret Pep 389 pg/mL (0-450) 04/26/18 19:14 Total Protein 6.7 g/dL (5.8-8.3) 05/03/18 06:15 Albumin 3.2 g/dL (3.0-4.8) 05/03/18 06:15 Globulin 3.5 gm/dL 05/03/18 06:15 Albumin/Globulin Ratio 0.9 (1.1-1.8) L 05/03/18 06:15 - Hospital Course Hospital Course: Cesario Kirk, PGY-1, Internal Medicine Discharge Summary for Dr. Garland 68 year old female with past medical history of hypertension, type II diabetes mellitus, CKD, CVA, and TIA presented with lower extremity swelling and pain starting a few weeks ago. Patient was admitted for right lower extremity wound with rule out of osteomyelitis. Ankle X ray on 04/27 showed mild focal periosteal thickening of lateral aspect of distal right fibula without cortical erosion, adjacent soft tissue swelling and heterogenous density. Wound culture showed growth of Enterobacter Cloacae Ssp. Skin culture of right calf showed coagulase negative staphylococcus, likely contaminated. Blood culture was negative. Due to suspicion of osteomyelitis, ankle MRI was performed showing no marrow edema suggestive of osteomyelitis but consistent with cellulitis. Patient was initially treated with vancomycin and zosyn upon admission but after MRI results, vancomycin was discontinued and zosyn was continued. Patient was also found to have peripheral vascular disease. Extremity US on 04/27 showed significant right distal SFA, popliteal, and tibial disease. As a result MRA with runoff was performed showing short segment stenoses seen in right SFA proximally and distally. Left SFA was unremarkable. Single vessel runoff to the right ankle via the anterior tibial. The peroneal trunk and the peroneal and posterior tibial artery were only segmentally visualized. Arteriogram of right foot was performed on 05/01 with successful drug eluting balloon angioplasties of mid right SFA, mid right popliteal artery, and proximal to mid right SFA silver Hawk atherectomy. There was 1 vessel runoff via the right anterior tibial a rtery. Patient had creatinine of 1.5 on admission. Creatinine was stable throughout admission with gentle NS at 75 cc/her. Patient's metformin, lasix, and glipizide were stopped during this admission due to patient's MATHEW on CKD. Creatinine kae to 1.9 on 05/03 and NS was started for treatment of MATHEW on CKD prior to discharge. In addition, patient was started on high sliding scale insulin and levemir 10 mg HS. Patient tolerated the procedure well and was deemed medically ready for discharge the following day. Patient was deemed medically stable and ready for discharge. Patient was told to follow up with PCP within 7-14 days. Patient was told to take all medications as prescribed and stop metformin, glipizide, and lasix. Patient was told to continue wound care at [facility]. Patient was told to return to the emergency department if she had any worsening or new concerning symptoms. - Date & Time of H&P Date of H&P: 04/26/18 Time of H&P: 20:55 Discharge Exam - Head Exam Head Exam: ATRAUMATIC, NORMOCEPHALIC - Eye Exam Eye Exam: EOMI, PERRL - Respiratory Exam Respiratory Exam: Clear to PA & Lateral, NORMAL BREATHING PATTERN - Cardiovascular Exam Cardiovascular Exam: REGULAR RHYTHM, RRR - GI/Abdominal Exam GI & Abdominal Exam: Normal Bowel Sounds, Soft. absent: Tenderness - Extremities Exam Extremities exam: full ROM - Neurological Exam Neurological exam: Alert, CN II-XII Intact, Oriented x3 - Skin Skin Exam: Dry, Intact Additional comments: Cellulitis wound of right foot wrapped Discharge Plan - Discharge Medications Prescriptions: Insulin Lispro Mix 75/25 [HumaLOG Mix 75/25] 45 units SC [facility] #2 vial - Follow Up Plan Condition: STABLE Disposition: REHAB FACILITY/REHAB UNIT Instructions: Cellulitis (GEN) Additional Instructions: Please follow up with PCP in 7-14 days. Please follow up with podiatry within 5- 7 days. Continue with wound care at [facility] as instructed at hospital. Check CMP on 05/06/17. Please take all medications as prescribed. Please return to the emergency department if you have any new or concerning symptoms. Referrals: Hu Hernandez MD [Primary Care Provider] -
--- NOTE | 2018-05-03 15:55 | CP.PCM.PN ---
Subjective - Date & Time of Evaluation Date of Evaluation: 05/03/18 Time of Evaluation: 14:45 - Subjective Subjective: Infectious Disease Follow Up: May 03, 2018 68 yo female with presentation of lower extremity swelling in the right initially that started several weeks ago. The patient is having difficulties with ambulation especially in the right leg. Her PMHx includes HTN, T2DM, CKD, CVA, TIA. Two ulcerations on the posterior right leg. Patient on the whole feels very comfortable. Wounds appears to be healing /healed. Enterobacter in leg ulcers. No leukocytosis. ESR of 122. CKD Stage II-III. Elevated Hgb A1c of greater than 11. Currently on Zosyn. No new issues. To convert to Cipro on discharge. Arthrectomy and angioplasty performed 05/01/[address] Mulligan. Severe right trifurcation and tibial disease. Objective - Vital Signs/Intake and Output Vital Signs (last 24 hours): Temp Pulse Resp BP Pulse Ox 97.9 F 66 18 146/68 97 05/03/18 06:00 05/03/18 06:00 05/03/18 06:00 05/03/18 10:11 05/03/18 06:00 Intake and Output: 05/03/18 05/03/18 06:59 18:59 Intake Total 380 Balance 380 - Medications Medications: Current Medications Acetaminophen (Tylenol 325mg Tab) 650 mg PO Q6H PRN PRN Reason: Fever >100.4 F Last Admin: 04/27/18 04:25 Dose: 650 mg Acetaminophen (Tylenol 325mg Tab) 650 mg PO Q4H PRN PRN Reason: Pain, moderate (4-7) Last Admin: 04/30/18 06:14 Dose: 650 mg Amlodipine Besylate (Norvasc) 10 mg PO DAILY [facility] Last Admin: 05/03/18 10:11 Dose: 10 mg Atorvastatin Calcium (Lipitor) 20 mg PO DIN [facility] Last Admin: 05/02/18 17:20 Dose: 20 mg Calcitriol (Rocaltrol) 0.5 mcg PO DAILY [facility] Last Admin: 05/03/18 10:11 Dose: 0.5 mcg Collagenase (Santyl) 0 gm TOP DAILY [facility] Last Admin: 05/03/18 13:14 Dose: Not Given Dextrose (Dextrose 50% Inj) 0 ml IV STAT PRN; Protocol PRN Reason: Hypoglycemia Protocol Dipyridamole/Aspirin (Aggrenox 25-200 Mg) 1 ea PO DAILY [facility] Last Admin: 05/03/18 10:11 Dose: 1 ea Furosemide (Lasix) 20 mg PO DAILY [facility] Last Admin: 04/28/18 11:10 Dose: Not Given Glipizide (Glucotrol Xl) 10 mg PO BID [facility] Last Admin: 04/28/18 11:11 Dose: Not Given Heparin Sodium (Porcine) (Heparin) 5,000 units SC Q12 [facility]; Protocol Last Admin: 04/30/18 22:14 Dose: 5,000 units Dextrose (Dextrose 5% In Water 1000 Ml) 1,000 mls @ 0 mls/hr IV .Q0M PRN; Protocol PRN Reason: Hypoglycemia Protocol Sodium Chloride (Sodium Chloride 0.9%) 500 mls @ 150 mls/hr IV .Q3H20M [facility] Last Admin: 05/03/18 13:14 Dose: 150 mls/hr Insulin Human Regular (Humulin R High) 0 units SC ACHS [facility]; Protocol Last Admin: 05/03/18 12:24 Dose: 7 units Insulin Lispro Protam/Lispro Human (Humalog Mix 75/25) 45 units SC AMHS [facility] Last Admin: 05/03/18 12:26 Dose: 45 units Losartan Potassium (Cozaar) 100 mg PO DAILY [facility] Last Admin: 05/03/18 10:12 Dose: 100 mg Metformin HCl (Glucophage) 1,000 mg PO BID [facility] Last Admin: 04/28/18 11:13 Dose: Not Given Ondansetron HCl (Zofran Inj) 4 mg IVP ONCE PRN PRN Reason: Nausea/Vomiting Pantoprazole Sodium (Protonix Ec Tab) 40 mg PO 0600 [facility] Last Admin: 05/03/18 06:11 Dose: 40 mg - Labs Labs: 05/03/18 06:15 05/03/18 06:15 PT 11.1 SECONDS (9.4-12.5) 04/26/18 19:14 INR 1.00 04/26/18 19:14 APTT 24.4 Seconds (26.9-38.3) L 04/26/18 19:14 - Constitutional Appears: Non-toxic, No Acute Distress, Chronically Ill - Head Exam Head Exam: ATRAUMATIC, NORMOCEPHALIC - Eye Exam Eye Exam: EOMI, PERRL Pupil Exam: NORMAL ACCOMODATION, PERRL - ENT Exam ENT Exam: Mucous Membranes Moist, Normal External Ear Exam, TM's Normal Bilaterally - Neck Exam Neck Exam: Full ROM, Normal Inspection - Cardiovascular Exam Cardiovascular Exam: REGULAR RHYTHM, RRR, +S1, +S2 - GI/Abdominal Exam GI & Abdominal Exam: Soft, Normal Bowel Sounds. absent: Distended, Tenderness - Extremities Exam Extremities Exam: Pedal Edema Additional comments: bilateral lower extremity swelling and pitting edema R>L that is improving RLE mildly warm, non erythematous, non tender to palpation two ulcerations on right calf that appear to be mostly healed - Neurological Exam Neurological Exam: Alert, Awake, CN II-XII Intact, Oriented x3 - Psychiatric Exam Psychiatric exam: Normal Affect, Normal Mood - Skin Additional comments: As above. Assessment and Plan - Assessment and Plan (Free Text) Assessment: 68 yo female with right lower extremity swelling with ulcerations to the posterior of the leg. The ulcerations appear to be healed at this time. Started on Vancomycin and Zosyn for antibiotic coverage. The patient has multiple medical issues that include HTN and DM Type 2. Local wound care. Duplex studies. Check ESR. For now, continue with Zosyn IV while in hospital. Ulceration sites do not appear infected. Stopped Vancomycin. Continued on Zosyn. Enterobacter in wound culture from right leg ulcerations. Had arthrectomy and angiography today. Wound care as per Podiatry. Can switch to oral antibiotics when ready for discharge... choice would be Ciprofloxacin 250mg BID for 10 days given Enterobacter growth. Supportive care. Thank you for allowing me to participate in the care of the patient, we will follow with you.
[2018-05-03 16:26] VITALS: BP 140/74; PULSE 76; TEMP 98.8; O2SAT 98
--- NOTE | 2018-05-03 19:14 | PN ---
DATE: 05/03/2018 SUBJECTIVE: The patient is seen lying in bed, but she is awake and alert. She is comfortable. She complains of some pain in her right heel. PHYSICAL EXAMINATION: GENERAL: Elderly lady lying in bed. VITAL SIGNS: Blood pressure 146/68, heart rate 66, respiratory rate 18, temperature 97.9. HEENT: Normocephalic, atraumatic, positive pallor. NECK: Supple, no JVD. LUNGS: Bilateral equal entry, bilateral rhonchi, no rales. CARDIAC: S1, S2, regular rate and rhythm, no murmur, no rub. ABDOMEN: Obese, distended, soft, nontender, bowel sounds present. EXTREMITIES: Dressing of the right ankle. INTAKE AND OUTPUT: Not charted. LABORATORY DATA: WBC 9, hemoglobin 8.9, hematocrit 28, platelets 292. Sodium 137, potassium 4, chloride 108, CO2 of 24, BUN 37, creatinine 1.9, glucose 270, calcium 10, albumin 3.2. CURRENT MEDICATIONS: Aggrenox, losartan 100, Glucophage on hold, Glucotrol on hold, insulin 75/25 at 45 units b.i.d., Lasix on hold, Lipitor, amlodipine 10, Protonix, Rocaltrol 0.5, Tylenol, Zofran. ASSESSMENT: 1. Acute kidney injury superimposed on chronic kidney disease stage III, creatinine has risen from 1.6 to 1.9. 2. Poorly controlled diabetes. 3. Hypertension. 4. Nonhealing ulcer of the foot/cellulitis. 5. Coronary artery disease status post percutaneous transluminal coronary angioplasty and stents. 6. Chronic anemia. PLAN: 1. Mild increase in creatinine, followup labs early next week. 2. Intensify glycemic control. 3. Close outpatient followup needed. 4. Antibiotics as per ID recommendations. 5. Wound care. Carolina Mccauley MD
== END 2018-05-03 18:35 | DRG 271 ==
LOC: ED 17:29 → ERH 20:21 → 5RSO 22:32 → OBSVTOIN 04-27 15:46 → 5RSO 04-30 09:51 → 5RNO 04-30 15:00 → 2RSO 05-01 10:42 → 5RNO 05-01 17:05
PROVIDERS: ADMIT Internal Medicine; ATTEND Internal Medicine
PROC: 04CK3ZZ Extirpation of Matter from Right Femoral Artery, Percutaneous Approach (ICD-10-PCS; principal; 2018-05-01)
PROC: 047K3Z1 Dilation of Right Femoral Artery using Drug-Coated Balloon, Percutaneous Approach (ICD-10-PCS; 2018-05-01)
PROC: 047M3Z1 Dilation of Right Popliteal Artery using Drug-Coated Balloon, Percutaneous Approach (ICD-10-PCS; 2018-05-01)
PROC: B4101ZZ Fluoroscopy of Abdominal Aorta using Low Osmolar Contrast (ICD-10-PCS; 2018-05-01)
PROC: B41F1ZZ Fluoroscopy of Right Lower Extremity Arteries using Low Osmolar Contrast (ICD-10-PCS; 2018-05-01)
DX: E11.51 Type 2 diabetes mellitus with diabetic peripheral angiopathy without gangrene (principal); L97.419 Non-pressure chronic ulcer of right heel and midfoot with unspecified severity; L03.115 Cellulitis of right lower limb; I69.351 Hemiplegia and hemiparesis following cerebral infarction affecting right dominant side; N17.9 Acute kidney failure, unspecified; E11.621 Type 2 diabetes mellitus with foot ulcer; E11.22 Type 2 diabetes mellitus with diabetic chronic kidney disease; E11.65 Type 2 diabetes mellitus with hyperglycemia; B96.89 Other specified bacterial agents as the cause of diseases classified elsewhere; D63.8 Anemia in other chronic diseases classified elsewhere; I12.9 Hypertensive chronic kidney disease with stage 1 through stage 4 chronic kidney disease, or unspecified chronic kidney disease; I25.10 Atherosclerotic heart disease of native coronary artery without angina pectoris; N18.3 Chronic kidney disease, stage 3 (moderate); R32 Unspecified urinary incontinence; Z79.4 Long term (current) use of insulin; Z82.49 Family history of ischemic heart disease and other diseases of the circulatory system; Z83.3 Family history of diabetes mellitus; Z87.891 Personal history of nicotine dependence; Z95.5 Presence of coronary angioplasty implant and graft; Z98.51 Tubal ligation status; D72.829 Elevated white blood cell count, unspecified

== ENCOUNTER → 2018-06-19 | Outpatient (CLI) | payer MEDICARE | LOC: RAD 11:17 | DX: I73.9 Peripheral vascular disease, unspecified (principal) ==